=== PATIENT | female | born 1935 | race Caucasian/White ===

== ENCOUNTER 2019-07-25 09:00 | Observation (INO) | payer MEDICARE, OTHER ==
[~2019-07-25] VITALS: Ht 165 cm; Wt 86.0 kg
[2019-07-25] MEDS ORDERED: NS IV 500 ML 500 ML IV ONE (09:25)
[2019-07-25 09:37] LABS: BASOPHILS % (AUTO) 0 % (0-10); EOSINOPHILS # (AUTO) 0.1 10^3/uL (0.0-0.3); EOSINOPHILS % (AUTO) 1 % (0-10); HEMATOCRIT 40 % (35-52); HEMOGLOBIN 12.9 G/DL (11.5-16.0); LYMPHOCYTES # (AUTO) 4.3 X 10^3 (1.0-4.0); LYMPHOCYTES % (AUTO) 42 % (12-44); MEAN CORPUSCULAR HEMOGLOBIN 30 PG (25-34); MEAN CORPUSCULAR HGB CONC 32 G/DL (32-36); MEAN CORPUSCULAR VOLUME 95 FL (80-99); MEAN PLATELET VOLUME 9.6 FL (7.4-10.4); MONOCYTES # (AUTO) 0.7 X 10^3 (0.0-1.0); MONOCYTES % (AUTO) 7 % (0-12); NEUTROPHILS # (AUTO) 5.1 X 10^3 (1.8-7.8); NEUTROPHILS % (AUTO) 50 % (42-75); PLATELET COUNT 331 10^3/uL (130-400); RED CELL DISTRIBUTION WIDTH 14.1 % (10.0-14.5); WHITE BLOOD COUNT 10.2 10^3/uL (4.3-11.0)
[2019-07-25 09:42] LABS: PROTHROMBIN TIME PATIENT 13.6 SEC (12.2-14.7)
[2019-07-25 09:47] LABS: ALBUMIN 4.1 GM/DL (3.2-4.5); BILIRUBIN,TOTAL 0.5 MG/DL (0.1-1.0); CALCIUM 10.1 MG/DL (8.5-10.1); CREATININE SERUM 1.51 MG/DL (0.60-1.30); POTASSIUM 4.8 MMOL/L (3.6-5.0); TOTAL PROTEIN 7.9 GM/DL (6.4-8.2)
--- NOTE | 2019-07-25 10:10 | ED General ---
General Chief Complaint: Abdominal/GI Problems Stated Complaint: AMS;V/D Source of Information: Patient, EMS History of Present Illness Date Seen by Provider: Jul 25, 2019 Time Seen by Provider: 09:25 Initial Comments Here with report of altered mental status. Apparently she has been constipated recently. She had gone down to the dining room for breakfast and was feeling bad and barely made it back to her room. She got on the toilet and had a large BM. Apparently during this episode she became confused and had altered mental status. Not only did she have diarrhea but she was vomiting. EMS was summoned. She improved for them with a negative stroke screen that continues now. States that she feels that her but has had the diarrhea. Denies breathing problems or chest pain. Timing/Duration: 1 Hour (presenting symptoms), 2-3 Days (constipation) Severity: Moderate Associated Systoms: No Chest Pain, No Cough; Fever/Chills, Nausea/Vomiting; No Shortness of Air; Weakness Allergies and Home Medications Allergies Coded Allergies: Penicillins (Verified Allergy, Unknown, 07/25/19) Patient Home Medication List Home Medication List Reviewed: Yes Review of Systems Review of Systems Constitutional: see HPI, chills; No fever; weakness EENTM: no symptoms reported Respiratory: see HPI Cardiovascular: No edema; other (near syncope) Gastrointestinal: abdominal pain, constipation, diarrhea, nausea, vomiting Genitourinary: No dysuria, No pain Musculoskeletal: no symptoms reported Skin: no symptoms reported Psychiatric/Neurological: Anxiety, Other (nearly passing out.) All Other Systems Reviewed Negative Unless Noted: Yes Past Ibwazxz-Eaonkb-Onzqbh Hx Past Med/Social Hx: Reviewed Nursing Past Med/Soc Hx Patient Social History Alcohol Use: Denies Use Recreational Drug Use: No Past Medical History Surgeries: Yes Appendectomy, Gallbladder, Hysterectomy Respiratory: No Cardiac: Yes Atrial Fibrillation, High Cholesterol, Hypertension 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 oz. kg; BMI Method: General Appearance: No Apparent Distress, WD/WN HEENT: PERRL/EOMI, Pharynx Normal Neck: Non Tender, Supple Respiratory: Lungs Clear, Normal Breath Sounds Cardiovascular: No Murmur, Irregularly Irregular Gastrointestinal: Non Tender, Soft Back: Normal Inspection, No CVA Tenderness, No Vertebral Tenderness Extremity: Normal Range of Motion, Non Tender Neurologic/Psychiatric: Alert, Oriented x3 Skin: normal color, warm/dry Focused Exam Lactate Level 07/25/19 09:09: Lactic Acid Level 2.08*H Lactic Acid Level Laboratory Tests Test 07/25/19 09:09 Lactic Acid Level 2.08 MMOL/L (0.50-2.00) *H Progress/Results/Core Measures Suspected Sepsis SIRS Temperature: Pulse: Respiratory Rate: Laboratory Tests 07/25/19 09:09: White Blood Count 10.2 Blood Pressure / Mean: 07/25/19 09:09: Lactic Acid Level 2.08*H Laboratory Tests 07/25/19 09:09: Creatinine 1.51H, INR Comment 1.0, Platelet Count 331, Total Bilirubin 0.5 Results/Orders Lab Results Laboratory Tests Test 07/25/19 09:09 07/25/19 10:19 Range/Units White Blood Count 10.2 4.3-11.0 10^3/uL Red Blood Count 4.24 L 4.35-5.85 10^6/uL Hemoglobin 12.9 11.5-16.0 G/DL Hematocrit 40 35-52 % Mean Corpuscular Volume 95 80-99 FL Mean Corpuscular Hemoglobin 30 25-34 PG Mean Corpuscular Hemoglobin Concent 32 32-36 G/DL Red Cell Distribution Width 14.1 10.0-14.5 % Platelet Count 331 130-400 10^3/uL Mean Platelet Volume 9.6 7.4-10.4 FL Neutrophils (%) (Auto) 50 42-75 % Lymphocytes (%) (Auto) 42 12-44 % Monocytes (%) (Auto) 7 0-12 % Eosinophils (%) (Auto) 1 0-10 % Basophils (%) (Auto) 0 0-10 % Neutrophils # (Auto) 5.1 1.8-7.8 X 10^3 Lymphocytes # (Auto) 4.3 H 1.0-4.0 X 10^3 Monocytes # (Auto) 0.7 0.0-1.0 X 10^3 Eosinophils # (Auto) 0.1 0.0-0.3 10^3/uL Basophils # (Auto) 0.0 0.0-0.1 10^3/uL Prothrombin Time 13.6 12.2-14.7 SEC INR Comment 1.0 0.8-1.4 Activated Partial Thromboplast Time 28 24-35 SEC Sodium Level 140 135-145 MMOL/L Potassium Level 4.8 3.6-5.0 MMOL/L Chloride Level 102 98-107 MMOL/L Carbon Dioxide Level 24 21-32 MMOL/L Anion Gap 14 5-14 MMOL/L Blood Urea Nitrogen 33 H 7-18 MG/DL Creatinine 1.51 H 0.60-1.30 MG/DL Estimat Glomerular Filtration Rate 33 BUN/Creatinine Ratio 22 Glucose Level 133 H 70-105 MG/DL Lactic Acid Level 2.08 *H 0.50-2.00 MMOL/L Calcium Level 10.1 8.5-10.1 MG/DL Corrected Calcium 10.0 8.5-10.1 MG/DL Total Bilirubin 0.5 0.1-1.0 MG/DL Aspartate Amino Transf (AST/SGOT) 15 5-34 U/L Alanine Aminotransferase (ALT/SGPT) 7 0-55 U/L Alkaline Phosphatase 84 40-136 U/L Total Protein 7.9 6.4-8.2 GM/DL Albumin 4.1 3.2-4.5 GM/DL Urine Color YELLOW Urine Clarity CLEAR Urine pH 6 5-9 Urine Specific [place] 1.015 L 1.016-1.022 Urine Protein 2+ H NEGATIVE Urine Glucose (UA) NEGATIVE NEGATIVE Urine Ketones NEGATIVE NEGATIVE Urine Nitrite POSITIVE H NEGATIVE Urine Bilirubin NEGATIVE NEGATIVE Urine Urobilinogen NORMAL NORMAL MG/DL Urine Leukocyte Esterase 1+ H NEGATIVE Urine RBC (Auto) NEGATIVE NEGATIVE Urine RBC NONE /HPF Urine WBC 10-25 H /HPF Urine Squamous Epithelial Cells 5-10 /HPF Urine Crystals NONE /LPF Urine Bacteria MODERATE H /HPF Urine Casts PRESENT /LPF Urine Hyaline Casts 25-50 H /LPF Urine Mucus NEGATIVE /LPF Urine Culture Indicated CULTURE PENDING My Orders Orders - RHONDA TRAYLOR MD Ns Iv 500 Ml (Sodium Chloride 0.9%) (07/25/19 09:25) Cbc With Automated Diff (07/25/19 09:25) Comprehensive Metabolic Panel (07/25/19 09:25) Blood Culture (07/25/19:25) Sputum Culture (07/25/19:25) Urinalysis (07/25/19:25) Urine Culture (07/25/19:25) Protime With Inr (07/25/19:25) Partial Thromboplastin Time (07/25/19:25) Chest 1 View, Ap/Pa Only (07/25/19:25) Ed Iv/Invasive Line Start (07/25/19:25) Vital Signs Adult Sepsis Patie Q15M (07/25/19 09:25) O2 (07/25/19:) Remove Rings In Anticipation O (07/25/19:) Lactic Acid Analyzer (07/25/19:) Ceftriaxone For Iv Use (Rocephin For I (07/25/19 11:00) Medications Given in ED Current Medications Medications Dose Ordered Sig/Bishnu Route Start Time Stop Time Status Last Admin Dose Admin Ceftriaxone Sodium 1000 mg/ Sterile Water 10 ml @ 200 mls/hr ONCE ONCE IV 07/25/19 11:00 07/25/19 11:02 DC 07/25/19 11:07 200 MLS/HR Sodium Chloride 500 ml @ 0 mls/hr Q0M ONCE IV 07/25/19 09:25 07/25/19 09:28 DC 07/25/19 09:53 500 MLS/HR Vital Signs/I&O 07/25/19 09:00 Temp 36.7 Pulse 56 Resp 18 B/P (MAP) 113/55 (74) Pulse Ox 97 Capillary Refill : Progress Note : Progress Note Seen and evaluated. IV, labs, UA, chest x-ray, blood cultures and lactic acid ordered. Normal saline 500 mL bolus. Monitor patient. 1010: Power catheter p laced due to difficulty with getting up and the need to collect UA. Monitor patient. 1132: UTI noted. Rocephin 1 g IV ordered. Patient will need admission. Paged hospitalist, Dr. Cisneros and pending call back. I have discussed the case with Dr. Torres who will see the patient in consult due to patient's history of A. fib and is on flecainide. She is currently in atrial fibrillation. 1140: I have discussed the case with Dr. Cisneros and he accepts patient for admission, inpatient status. Patient and family agree with plan. Patient does have a urinary tract infection but is not hypotensive and does not have indications for high volume fluid resuscitation at this time. ECG Initial ECG Impression Date: Jul 25, 2019 Initial ECG Impression Time: 09:14 Initial ECG Rate: 57 Initial ECG Rhythm: A Fib/Flutter Initial ECG Impression: Atrial Fibrillation Initial ECG Comparisson: No Previous ECG Available Comment Atrial fibrillation with no right. No evidence of ST elevation SD. No previous available for person. Interpreted by me. Diagnostic Imaging Diagonstic Imaging: Xray Plain Films/CT/US/NM/MRI: chest Comments NAME: TATE STEPHEN REC#: [id number] PT STATUS: REG ER : 1935 PHYSICIAN: RHONDA TRAYLOR MD ADMIT DATE: 07/25/19/ER Draft Date of Exam:07/25/19 CHEST 1 VIEW, AP/PA ONLY INDICATION: Chest pain. No prior examinations are Available for comparison. FINDINGS: There is cardiomegaly. There is some venous congestion. There is bibasilar atelectasis and/or pneumonitis. There is no pleural effusion or pneumothorax. The mediastinum is unremarkable. IMPRESSION: Bibasilar atelectasis and/or pneumonitis. Cardiomegaly and mild central pulmonary venous congestion. Dictated on workstation # [id number] Dict: 07/25/19 1014 Trans: 07/25/19 1018 [facility] [id number] Interpreted by: GABRIEL ASENCIO MD Electronically signed by: Departure Impression Primary Impression: Urinary tract infection Qualified Codes: N30.00 - Acute cystitis without hematuria Disposition: ADMITTED INPATIENT Condition: Stable Admissions Decision to Admit Reason: Admit from ER (General) Decision to Admit/Date: Jul 25, 2019 Time/Decision to Admit Time: 11:29 RHONDA TRAYLOR MD Jul 25, 2019 10:10
--- NOTE | 2019-07-25 10:18 | Diagnostic Imaging Report ---
INDICATION: Chest pain. No prior examinations are Available for comparison. FINDINGS: There is cardiomegaly. There is some venous congestion. There is bibasilar atelectasis and/or pneumonitis. There is no pleural effusion or pneumothorax. The mediastinum is unremarkable. IMPRESSION: Bibasilar atelectasis and/or pneumonitis. Cardiomegaly and mild central pulmonary venous congestion. Dictated by: Dictated on workstation # [id number]
[2019-07-25 10:23] LABS: BILIRUBIN,URINE NEGATIVE (NEGATIVE); CLARITY,URINE CLEAR; COLOR,URINE YELLOW; GLUCOSE, URINE (UA) NEGATIVE (NEGATIVE); KETONES,URINE NEGATIVE (NEGATIVE); LEUKOCYTE ESTERASE ,URINE 1+ (NEGATIVE); NITRITE,URINE POSITIVE (NEGATIVE); PH,URINE 6 (5-9); PROTEIN,URINE 2+ (NEGATIVE); UROBILINOGEN,URINE NORMAL (NORMAL)
[2019-07-25 10:34] LABS: BACTERIA,URINE MODERATE /HPF; HYALINE CASTS, URINE 25-50 /LPF
[2019-07-25] MEDS ORDERED: cefTRIAXone FOR IV USE 1,000 MG in WATER (STERILE) FOR INJECTION 10 ML IV ONE (11:00)
[2019-07-25] MEDS ORDERED: QUIN20TA16 PO (13:39)
[2019-07-25] MEDS ORDERED: AMLO10TA7 PO (13:39)
[2019-07-25] MEDS ORDERED: FURO20TA4 PO (13:39)
[2019-07-25] MEDS ORDERED: LEVO125T6 PO (13:39)
[2019-07-25] MEDS ORDERED: CALC250T2 PO (13:39)
[2019-07-25] MEDS ORDERED: OMG1KC PO (13:39)
[2019-07-25] MEDS ORDERED: LORA10TA7 PO (13:39)
[2019-07-25] MEDS ORDERED: SPIR25TA PO (13:39)
[2019-07-25] MEDS ORDERED: ASCO-262 PO (13:39)
[2019-07-25] MEDS ORDERED: [UNRECOGNIZED DRUG - CODE] TP (13:39)
[2019-07-25] MEDS ORDERED: CITA20TA9 PO (13:39)
[2019-07-25] MEDS ORDERED: CHOL10007 PO (13:39)
[2019-07-25] MEDS ORDERED: GEMF600T8 PO (13:39)
[2019-07-25] MEDS ORDERED: POTA99TA21 PO (13:39)
[2019-07-25] MEDS ORDERED: ACET-2650 PO (13:39)
[2019-07-25] MEDS ORDERED: FLEC100T PO (13:39)
[2019-07-25] MEDS ORDERED: CATHETER FLUSH 10 ML SYR IV PRN (13:45)
[2019-07-25] MEDS ORDERED: NS IV 1000 ML 1,000 ML IV SCH (13:45)
--- NOTE | 2019-07-25 13:48 | NUR ---
UPDATED MED REC WITH MAR FROM [facility]
--- NOTE | 2019-07-25 14:00 | NUR ---
PT ADMITTED TO ROOM 404 FOR UTI, SEPSIS. A/O X4. IV TO LEFT AC INTACT. HOLLIS DRAINING TO DEPENDENT DRAINAGE. PT ABLE TO GIVE SOME HISTORY BUT MOSTLY WITH THE HELP OF HER SON, BRENDA. PT REPORTS USING WALK[facility] [place], [place]. OREINTED PT TO ROOM/CALL LIGHT. LUNCH ORDERED. PT DENIES ANY NAUSEA/VOM. CALL LIGHT WITHIN REACH. PT FALL RISK. VERBALIZED UNDERSTANDING OF USE OF CALL LIGHT IF NEEDING TO GET UP.
[2019-07-25 15:30] VITALS: BP 164/74
[2019-07-25 15:47] VITALS: BP 139/68
[2019-07-25 19:37] VITALS: BP 135/55
[2019-07-25] MEDS ORDERED: ONDANSETRON 4 MG (ZOFRAN) ORAL DISSOLVE TAB PO PRN (20:30)
[2019-07-25] MEDS ORDERED: POLYETHYLENE GLYCOL 17 GM (MIRALAX) PACK PO PRN (20:30)
[2019-07-25] MEDS ORDERED: MELATONIN 3 MG TABLET PO PRN (20:30)
[2019-07-25] MEDS ORDERED: ACETAMINOPHEN 325 MG TABLET PO PRN (20:30)
[2019-07-25] MEDS: SENNA W/DOCUSATE (SENOKOT S) TABLET PO SCH (21:11)
[2019-07-25] MEDS: DOCUSATE SODIUM 100 MG (COLACE) CAP PO SCH (21:11)
[2019-07-26] VITALS: BP 127/61
[2019-07-26 04:00] VITALS: BP 118/61
[2019-07-26 06:14] LABS: BASOPHILS % (AUTO) 0 % (0-10); EOSINOPHILS # (AUTO) 0.1 10^3/uL (0.0-0.3); EOSINOPHILS % (AUTO) 2 % (0-10); HEMATOCRIT 39 % (35-52); LYMPHOCYTES # (AUTO) 1.5 X 10^3 (1.0-4.0); LYMPHOCYTES % (AUTO) 24 % (12-44); MEAN CORPUSCULAR HEMOGLOBIN 29 PG (25-34); MEAN CORPUSCULAR HGB CONC 31 G/DL (32-36); MEAN CORPUSCULAR VOLUME 96 FL (80-99); MEAN PLATELET VOLUME 9.5 FL (7.4-10.4); MONOCYTES # (AUTO) 0.6 X 10^3 (0.0-1.0); MONOCYTES % (AUTO) 9 % (0-12); NEUTROPHILS # (AUTO) 4.1 X 10^3 (1.8-7.8); NEUTROPHILS % (AUTO) 65 % (42-75); PLATELET COUNT 269 10^3/uL (130-400); RED CELL DISTRIBUTION WIDTH 14.3 % (10.0-14.5); WHITE BLOOD COUNT 6.3 10^3/uL (4.3-11.0)
[2019-07-26 06:37] LABS: ALBUMIN 3.4 GM/DL (3.2-4.5); BILIRUBIN,TOTAL 0.4 MG/DL (0.1-1.0); CALCIUM 9.1 MG/DL (8.5-10.1); CREATININE SERUM 0.95 MG/DL (0.60-1.30); POTASSIUM 4.7 MMOL/L (3.6-5.0); TOTAL PROTEIN 6.4 GM/DL (6.4-8.2)
[2019-07-26] MEDS ORDERED: LORATADINE (CLARITIN) 10 MG TAB PO PRN (07:30)
[2019-07-26 08:00] VITALS: BP 136/53
[2019-07-26] MEDS: SPIRONOLACTONE 25 MG (ALDACTONE) TAB PO SCH (08:40)
[2019-07-26] MEDS: FLECAINIDE 100 MG (TAMBOCOR) TAB PO SCH ×2 (08:40→22:25)
[2019-07-26] MEDS: amLODIPine 10 MG (NORVASC) TAB PO SCH (08:40)
[2019-07-26] MEDS: FUROSEMIDE 20 MG (LASIX) TAB PO SCH (08:40)
[2019-07-26] MEDS: LEVOTHYROXINE 125 MCG (LEVOTHROID) TABLET PO SCH (08:40)
[2019-07-26] MEDS: DOCUSATE SODIUM 100 MG (COLACE) CAP PO SCH ×2 (08:41→22:26)
[2019-07-26] MEDS: SENNA W/DOCUSATE (SENOKOT S) TABLET PO SCH ×2 (09:00→22:25)
[2019-07-26] MEDS: lisINopril 20 MG (PRINIVIL) TABLET PO SCH ×2 (10:41→22:26)
--- NOTE | 2019-07-26 10:45 | Physical Therapy Evaluation ---
PT Evaluation-General Medical Diagnosis Admission Date Jul 25, 2019 at 13:14 Medical Diagnosis: UTI/sepsis Onset Date: Jul 25, 2019 Therapy Diagnosis Therapy Diagnosis: debility Height/Weight Weight (Pounds): 179 Weight (Ounces): 0.6 Precautions Precautions/Isolations: Fall Prevention, Standard Precautions, Pressure Ulcer Referral Physician: Amelia Reason for Referral: Evaluation/Treatment Medical History Pertinent Medical History: Atrial Fib, HTN, Hypothroidism Current History EMS secondary to AMS Reviewed History: Yes Social History Home: Assisted Living Prior/Core FIM Prior Level of Function Therapy Code Descriptions/Definitions Functional [place] Measure: 0=Not Assessed/NA 4=Minimal Assistance 1=Total Assistance 5=Supervision or Setup 2=Maximal Assistance 6=Modified [place] 3=Moderate Assistance 7=Complete [place] Therapy Quality Codes: 6 Independent with activity with or without an assistive device 5 Patient requires set up or clean up by helper. Patient completes activity by themselves 4 Supervision or touching assist (CGA). [place] provide cues , steadying assist 3 The helper provides less than half the effort to complete the activity 2 The helper provides more than half the effort to complete the activity 1 Dependent. The helper does all the effort to complete an activity 7 Patient refused to complete or attempt activity 9 The patient did not perform the activity before the current illness or injury 88 Not attempted due to Medical conditions or safety concerns Functional Abilities and Goals: Independent: Patient completed the activities by him/herself, with or without an assistive device, with no assistance from a helper. Needed Some Help: Patient needed partial assistance from another person to complete activities. Dependent: A helper completed the activities for the patient. Unknown: Not Applicable: Bed Mobility: 6 Transfers (B,C,W/C) (FIM): 6 Gait: 6 Indoor Mobility (Ambulation): Independent Prior Devices Use: Walker Prior Device Use: 4WW PT Evaluation-Current Subjective Patient agrees to PT. No c/o Objective Patient Orientation: Person, Time, Situation Problem Solving: Fair Attachments: Power Catheter, IV ROM/Strength ROM Lower Extremities bilateral Le WFL Strength Lower Extremities 4/5 grossly bilateral LE Integumentary/Posture Integumentary refer to nursing notes Bladder Incontinence: Power Cath Posture WFL Neuromuscular (Tone, Coordination, Reflexes) grossly intact Sensory Vision: Wears Glasses Hearing: Functional Sensation Right Lower Extremit: Intact Sensation Left Lower Extremity: Intact Transfers Therapy Code Descriptions/Definitions Functional [place] Measure: 0=Not Assessed/NA 4=Minimal Assistance 1=Total Assistance 5=Supervision or Setup 2=Maximal Assistance 6=Modified [place] 3=Moderate Assistance 7=Complete [place] Transfers (B, C, W/C) (FIM): 6 Scootin Sit to/from Stand: 6 Gait Mode of Locomotion: Walk Anticipated Mode of Locomotion: Walk Gait (FIM): 5 Distance (FIM): 3=150 ft Distance: 275' Gait Level of Assist: 5 Gait Assistive Device: FWW Comments/Gait Description steady, functional gait sequence Balance Sitting Static: Normal Sitting Dynamic: Normal Standing Static: Normal Standing Dynamic: Normal Assessment/Needs 83 y.o. female, will be seen short term by skilled PT to address functional mobility to ensure safe return to [place]. Rehab Potential: Fair PT Alf Goals Alf Goals PT Alf Goals Time Frame: Aug 03, 2019 Transfers (B,C,W/C) (FIM): 6 Gait (FIM): 6 Gait distance (FIM): 3=150 ft Gait Level of Assist: 6 Gait Assistive Device: FWW PT Plan Treatment/Plan Treatment Plan: Continue Plan of Care Treatment Plan: Bed Mobility, Education, Functional Activity Mis, Functional Strength, Gait, Safety, Therapeutic Exercise, Transfers Treatment Duration: Aug 03, 2019 Frequency: 6 times per week Estimated Hrs Per Day: .25 hour per day Patient and/or Family Agrees t: Yes Discharge Recommendations Therapy Discharge Recommendati: Assisted Living Time/GCodes Time In: 1015 Time Out: 1035 Total Billed Treatment Time: 20 Total Billed Treatment 1 visit EVModC 20 min MAXIMILIAN OKEEFE PT Jul 26, 2019 10:45
[2019-07-26] MEDS ORDERED: cefTRIAXone 1,000 MG/SWFI 10 ML IV PUSH IV SCH ×2 (11:00)
[2019-07-26 12:00] VITALS: BP 131/58
--- NOTE | 2019-07-26 13:10 | History & Physical-Hospitalist ---
History of Present Illness HPI/Chief Complaint Vicky Dempsey is an 83-year-old female with past medical history of hypertension, hyperlipidemia, atrial fibrillation, who presented from her assisted living facility with altered mental status. She had been eating breakfast yesterday and began to have abdominal pain and felt like she needed of a bowel movement. She went back to her room and she had an episode of diarrhea. She then lost consciousness and does not remember a period of time. She also reports nausea and vomiting. She denies having any fevers or chills. She denies having any chest pain or shortness of breath. Source: patient Exam Limitations: no limitations Date Seen 07/26/19 Time Seen by a Provider: 10:15 Attending Physician Griselda Barcenas MD PCP No,Local Physician Referring Physician Date of Admission Jul 25, 2019 at 13:14 Home Medications & Allergies Home Medications Reviewed patient Home Medication Reconciliation performed by pharmacy medication reconciliations concrete technician and/or nursing. Patients Allergies have been reviewed. Allergies Allergies Coded Allergies Penicillins (Verified Allergy, Unknown, 07/25/19) sulfamethoxazole (Verified Allergy, Unknown, 07/25/19) trimethoprim (Verified Allergy, Unknown, 07/25/19) Past Xourayu-Rbzthz-Vwwxjc Hx Past Med/Social Hx: Reviewed Nursing Past Med/Soc Hx Patient Social History Alcohol Use: Denies Use Recreational Drug Use: No Smoking Status: Never a Smoker Physical Abuse Screen: No Sexual Abuse: No Recent Foreign Travel: No Contact w/other who traveled: No Recent Hopitalizations: Yes (HANK DERAS DR) Recent Infectious Disease Expo: No Seasonal Allergies Seasonal Allergies: No Past Medical History Surgeries: Appendectomy, Gallbladder, Hysterectomy Cardiac: Atrial Fibrillation, High Cholesterol, Hypertension Hysterectomy Genitourinary: UTI-Chronic Gastrointestinal: Chronic Constipation Endocrine: Hypothyroidsim HEENT: Macular Degeneration Loss of Vision: Bilateral Hearing Impairment: Denies Psychosocial: Anxiety Family History Reviewed Nursing Family Hx No Pertinent Family Hx Review of Systems Constitutional: no symptoms reported EENTM: no symptoms reported Respiratory: no symptoms reported Cardiovascular: no symptoms reported Gastrointestinal: abdominal pain, diarrhea, nausea, vomiting Genitourinary: no symptoms reported Musculoskeletal: no symptoms reported Skin: no symptoms reported Psychiatric/Neurological: No Symptoms Reported Physical Exam Physical Exam Vital Signs Vital Signs - First Documented 07/25/19 07/25/19 09:00 14:57 Temp 36.7 Pulse 56 Resp 18 B/P (MAP) 113/55 (74) Pulse Ox 97 O2 Delivery Room Air Capillary Refill : Less Than 3 Seconds Height, Weight, BMI Height: '" Weight: 179lbs. 0.6oz. 81.500775vg; 31.58 BMI Method: General Appearance: No Apparent Distress, WD/WN, Obese HEENT: PERRL/EOMI, Pharynx Normal Neck: Normal Inspection, Supple Respiratory: Lungs Clear, Normal Breath Sounds, No Respiratory Distress Cardiovascular: Irregularly Irregular Gastrointestinal: Normal Bowel Sounds, Non Tender, Soft Extremity: Normal Inspection, Non Tender Neurologic/Psychiatric: Alert, Oriented x3 Skin: Normal Color, Warm/Dry Results Results/Procedures Labs Laboratory Tests 07/25/19 09:09 07/26/19 05:28 Patient resulted labs reviewed. Imaging: Reviewed Imaging Report Assessment/Plan Admission Diagnosis Urinary tract infection Admission Status: Inpatient Order (span 2 midnights) Reason for Inpatient Admission: Acute kidney injury Lactic acidosis Assessment and Plan Urinary tract infection UA consistent with UTI Urine culture pending Started on ceftriaxone Await culture results Obtain renal ultrasound Lactic acidosis Lactic acid elevated on admission, resolved with fluid resuscitation Acute kidney injury Creatinine 1.5 on admission, improved to 0.9 today Tolerating oral fluids, discontinue IV fluids Atrial fibrillation Continue flecainide Not on anticoagulation Hypertension Hyperlipidemia Stable, continue home meds Diagnosis/Problems Diagnosis/Problems (1) Acute kidney injury Status: Resolved Resolution Date/Time: 07/26/19 @ 13:13 (2) Lactic acidosis Status: Resolved Resolution Date/Time: 07/26/19 @ 13:13 (3) Atrial fibrillation Status: Chronic (4) Hypertension Status: Chronic (5) Hyperlipidemia Status: Chronic (6) Urinary tract infection Status: Acute Qualifiers: Urinary tract infection type: acute cystitis Hematuria presence: without hematuria Qualified Codes: N30.00 - Acute cystitis without hematuria Clinical Quality Measures DVT/VTE Risk/Contraindication: Risk Factor Score Per Nursin RFS Level Per Nursing on Admit: 4+=Very High GRISELDA BARCENAS MD Jul 26, 2019 13:09
--- NOTE | 2019-07-26 13:38 | Occupational Therapy Eval ---
OT Evaluation-General/PLF Medical Diagnosis Admission Date Jul 25, 2019 at 13:14 Medical Diagnosis: UTI/sepsis Onset Date: Jul 25, 2019 Therapy Diagnosis Therapy Diagnosis: debility Height/Weight Weight (Pounds): 179 Weight (Ounces): 0.6 Precautions Precautions/Isolations: Fall Prevention, Standard Precautions, Pressure Ulcer Safety Interventions: Bed Exit Alarm Referral Physician: Amelia Medical History Pertinent Medical History: Atrial Fib, HTN, Hypothroidism Additional Medical History high cholesterol Current History Pt presented to hospital with AMS Social History Home: Assisted Living ADL-Prior Level of Function Therapy Code Descriptions/Definitions Functional [place] Measure: 0=Not Assessed/NA 4=Minimal Assistance 1=Total Assistance 5=Supervision or Setup 2=Maximal Assistance 6=Modified [place] 3=Moderate Assistance 7=Complete [place] Therapy Quality Codes: 6 Independent with activity with or without an assistive device 5 Patient requires set up or clean up by helper. Patient completes activity by themselves 4 Supervision or touching assist (CGA). [place] provide cues , steadying assist 3 The helper provides less than half the effort to complete the activity 2 The helper provides more than half the effort to complete the activity 1 Dependent. The helper does all the effort to complete an activity 7 Patient refused to complete or attempt activity 9 The patient did not perform the activity before the current illness or injury 88 Not attempted due to Medical conditions or safety concerns Functional Abilities and Goals: Independent: Patient completed the activities by him/herself, with or without an assistive device, with no assistance from a helper. Needed Some Help: Patient needed partial assistance from another person to complete activities. Dependent: A helper completed the activities for the patient. Unknown: Not Applicable: ADL PLOF Comments Pt reports ambulating with 4WW. States she is able to dress herself and complete toileting, but has assist for bathing. OT Current Status Subjective Pt sitting in chair, agrees to therapy. Mental Status/Objective Patient Orientation: Person Attachments: Power Catheter Current Glasses/Contacts: No (pt states she is legally blind) Hearing Aids: No Hand Dominance: Right Upper Extremity ROM grossly WFL Upper Extremity Strength Fair ADL-Treatment ADL-Current Pt participated in UE assessment while seated. Pt sit to stand with SBA, demonstrates ability to perform transfer with SBA with FWW. Pt moves slowly and requires cues for safety. Pt washed face with set up while seated in chair. Education provided regarding role of OT and plan of care. Pt states understanding. Pt sitting in chair with needs met and sister present after session. Therapy Code Descriptions/Definitions Functional [place] Measure: 0=Not Assessed/NA 4=Minimal Assistance 1=Total Assistance 5=Supervision or Setup 2=Maximal Assistance 6=Modified [place] 3=Moderate Assistance 7=Complete [place] Therapy Quality Codes: 6 Independent with activity with or without an assistive device 5 Patient requires set up or clean up by helper. Patient completes activity by themselves 4 Supervision or touching assist (CGA). [place] provide cues , steadying assist 3 The helper provides less than half the effort to complete the activity 2 The helper provides more than half the effort to complete the activity 1 Dependent. The helper does all the effort to complete an activity 7 Patient refused to complete or attempt activity 9 The patient did not perform the activity before the current illness or injury 88 Not attempted due to Medical conditions or safety concerns Grooming (FIM): 5 Education OT Patient Education: Rehab process Teaching Recipient: Patient Teaching Methods: Discussion Response to Teaching: Verbalize Understanding OT Short Term Goals Short Term Goals 1=Demonstrate adherence to instructed precautions during ADL tasks. 2=Patient will verbalize/demonstrate understanding of assistive devices/modifications for ADL. 3=Patient will improve strength/tolerance for activity to enable patient to perform ADL's. OT Fdc Goals Fdc Goals Time Frame: Aug 03, 2019 Eating (FIM): 6 Grooming(FIM): 6 Upper Body Dressing(FIM): 5 Lower Body Dressing(FIM): 5 Toileting(FIM): 5 Toilet/Commode Transfer(FIM): 6 Additional Goals: 1-Demonstrate ADL Tasks, 2-Verbalize Understanding, 3- ImproveStrength/Mis 1=Demonstrate adherence to instructed precautions during ADL tasks. 2=Patient will verbalize/demonstrate understanding of assistive devices /modifications for ADL. 3=Patient will improve strength/tolerance for activity to enable patient to perform ADL's. OT Education/Plan Problem List/Assessment Assessment: Decreased Activ Tolerance, Decreased UE Strength, Dependent Transfers, Impaired Self-Care Skills Pt to benefit from skilled OT intervention for ADL training, transfers, strengthening, and safety education to increase level of independence and allow safe discharge. Discharge Recommendations Plan/Recommendations: Continue POC Treatment Plan/Plan of Care Treatment,Training & Education: Yes Patient would benefit from OT for education, treatment and training to promote independence in ADL's, mobility, safety and/or upper extremity function for ADL's. Plan of Care: ADL Retraining, Functional Mobility, UE Funct Exercise/Act Treatment Duration: Aug 03, 2019 Frequency: 5 times per week Estimated Hrs Per Day: .25 hour per day Rehab Potential: Fair Time/GCodes Start Time: 13:10 Stop Time: 13:30 Total Time Billed (hr/min): 20 Billed Treatment Time 1 visit, JESSICA(20minutes) CAS MOTLEY OT Jul 26, 2019 13:38
--- NOTE | 2019-07-26 14:07 | Consultation-Cardiology ---
HPI-Cardiology Cardiology Consultation Date of Consultation 07/26/19 Date of Admission Time Seen by Provider: 14:03 Indication: atrial fibrillation HPI 83 years old lady with history of paroxysmal atrial flutter ablation, hypertension hyperlipidemia. Patient was admitted for urinary tract infection, lactic acidosis. Nausea and vomiting, currently feeling better, asking to go h ome, denied any chest pain, no palpitation. No syncope Home Medications & Allergies Allergies: Coded Allergies: Penicillins (Verified Allergy, Unknown, 07/25/19) sulfamethoxazole (Verified Allergy, Unknown, 07/25/19) trimethoprim (Verified Allergy, Unknown, 07/25/19) Home Medication List Reviewed: Yes [id number] Hx Patient Social History Alcohol Use: Denies Use Recreational Drug Use: No Smoking Status: Never a Smoker Recent Foreign Travel: No Recent Infectious Disease Expo: No Recent Hopitalizations: Yes (HANK DERAS DR) Physical Abuse Screen: No Sexual Abuse: No Past Medical History Discussed below Family Medical History Significant Family History: No Pertinent Family Hx Family Medical Hx Family history of heart disease Review of Systems-General Review of Systems Constitutional: see HPI, malaise, weakness EENTM: see HPI Respiratory: see HPI; No cough, No dyspnea on exertion, No hemoptysis, No orthopnea, No phlegm, No short of breath, No stridor, No wheezing, No other Cardiovascular: see HPI; No chest pain; edema; No Hx of Intervention; palpitations; No syncope, No vascular heart diseas, No other Gastrointestinal: see HPI, abdominal pain, diarrhea, nausea, vomiting Genitourinary: see HPI, frequency Musculoskeletal: no symptoms reported Skin: no symptoms reported Psychiatric/Neurological: No Symptoms Reported All Other Systems Reviewed Negative Unless Noted: Yes Reviewed Test Results Reviewed Test Results Lab Laboratory Tests Test 07/26/19 05:28 Range/Units White Blood Count 6.3 4.3-11.0 10^3/uL Red Blood Count 4.08 L 4.35-5.85 10^6/uL Hemoglobin 12.0 11.5-16.0 G/DL Hematocrit 39 35-52 % Mean Corpuscular Volume 96 80-99 FL Mean Corpuscular Hemoglobin 29 25-34 PG Mean Corpuscular Hemoglobin Concent 31 L 32-36 G/DL Red Cell Distribution Width 14.3 10.0-14.5 % Platelet Count 269 130-400 10^3/uL Mean Platelet Volume 9.5 7.4-10.4 FL Neutrophils (%) (Auto) 65 42-75 % Lymphocytes (%) (Auto) 24 12-44 % Monocytes (%) (Auto) 9 0-12 % Eosinophils (%) (Auto) 2 0-10 % Basophils (%) (Auto) 0 0-10 % Neutrophils # (Auto) 4.1 1.8-7.8 X 10^3 Lymphocytes # (Auto) 1.5 1.0-4.0 X 10^3 Monocytes # (Auto) 0.6 0.0-1.0 X 10^3 Eosinophils # (Auto) 0.1 0.0-0.3 10^3/uL Basophils # (Auto) 0.0 0.0-0.1 10^3/uL Sodium Level 141 135-145 MMOL/L Potassium Level 4.7 3.6-5.0 MMOL/L Chloride Level 109 H 98-107 MMOL/L Carbon Dioxide Level 24 21-32 MMOL/L Anion Gap 8 5-14 MMOL/L Blood Urea Nitrogen 22 H 7-18 MG/DL Creatinine 0.95 0.60-1.30 MG/DL Estimat Glomerular Filtration Rate 56 BUN/Creatinine Ratio 23 Glucose Level 82 70-105 MG/DL Calcium Level 9.1 8.5-10.1 MG/DL Corrected Calcium 9.6 8.5-10.1 MG/DL Total Bilirubin 0.4 0.1-1.0 MG/DL Aspartate Amino Transf (AST/SGOT) 11 5-34 U/L Alanine Aminotransferase (ALT/SGPT) 8 0-55 U/L Alkaline Phosphatase 85 40-136 U/L Total Protein 6.4 6.4-8.2 GM/DL Albumin 3.4 3.2-4.5 GM/DL Physical Exam Physical Exam Vital Signs Vital Signs - First Documented 07/25/19 07/25/19 09:00 14:57 Temp 36.7 Pulse 56 Resp 18 B/P (MAP) 113/55 (74) Pulse Ox 97 O2 Delivery Room Air Capillary Refill : Less Than 3 Seconds Height, Weight, BMI Height: '" Weight: 179lbs. 0.6oz. [id number]; 31.58 BMI Method: General Appearance: No Apparent Distress, WD/WN, Obese HEENT: PERRL/EOMI, Pharynx Normal Neck: Normal Inspection, Supple Respiratory: Lungs Clear, Normal Breath Sounds, No Respiratory Distress Cardiovascular: Regular Rate, Rhythm, No Gallop, No Murmur, Irregularly Irregular Gastrointestinal: Normal Bowel Sounds, Non Tender, Soft Back: Normal Inspection, No CVA Tenderness, No Vertebral Tenderness Extremity: Normal Inspection, Non Tender Neurologic/Psychiatric: Alert, Oriented x3 Skin: Normal Color, Warm/Dry A/P-Cardiology Admission Diagnosis Urinary tract infection Lactic acidosis Paroxysmal atrial fibrillation Hypertension Hyperlipidemia Assessment/Plan Urinary tract infection, lactic acidosis, managed by primary care team, receiving antibiotic and improving Paroxysmal atrial fibrillation, maintained on flecainide, not taking oral anticoagulation. Followed with a vault custodian in [place]. Continue to monitor Hypertension, controlled, continue current medications and monitor Hyperlipidemia, monitor lipids Clinical Quality Measures DVT/VTE Risk/Contraindication: Risk Factor Score Per Nursin RFS Level Per Nursing on Admit: 4+=Very High SCOT SHAH MD Jul 26, 2019 14:07
--- NOTE | 2019-07-26 15:20 | Diagnostic Imaging Report ---
PROCEDURE: US Renal Bilateral. TECHNIQUE: Multiple real-time grayscale images were obtained over the kidneys in various projections bilaterally. INDICATION: Urinary tract infections. FINDINGS: Right kidney measures 10.0 x 4.3 x 5.2 cm and the left kidney measures 10.0 x 4.9 x 4.0 cm. Cortical thickness is 9 mm. No calculi are seen. There is no hydronephrosis. Partially filled urinary bladder is unremarkable although ureteral jets were not visualized. IMPRESSION: Unremarkable renal ultrasound. Dictated by: Dictated on workstation # [id number]
[2019-07-26 16:00] VITALS: BP 121/66
[2019-07-26] MEDS ORDERED: GEMFIBROZIL 600 MG (LOPID) TAB PO SCH (16:00)
[2019-07-26 19:43] VITALS: BP 151/65
[2019-07-27 00:59] VITALS: BP 115/66
[2019-07-27 04:44] VITALS: BP 115/66
[2019-07-27 08:00] VITALS: BP 155/80
--- NOTE | 2019-07-27 09:03 | Cardiology Progress Note ---
Subjective Date Seen by Provider: Jul 27, 2019 Time Seen by Provider: 09:01 Subjective/Events-last exam Patient is feeling better, no new complaint, no chest pain Review of Systems General: No Chills, No Night Sweats, No Fatigue, No Malaise, No Appetite, No Other HEENT: No Head Aches, No Visual Changes, No Eye Pain, No Ear Pain, No Dysphasia, No Sinus Congestion, No Post Nasal Drip, No Sore Throat, No Other Pulmonary: No Dyspnea, No Cough, No Pleuritic Chest Pain, No Other Cardiovascular: No: Chest Pain, Palpitations, Orthopnea, Paroxysmal Noc. Dyspnea, Edema, Lt Headedness, Other Focused Exam Lactate Level 07/25/19 09:09: Lactic Acid Level 2.08*H 07/25/19 11:35: Lactic Acid Level 1.51 Objective-Cardiology Exam Last Set of Vital Signs Vital Signs 07/27/19 04:44 Temp 37.1 Pulse 56 Resp 18 B/P (MAP) 115/66 (82) Pulse Ox 98 O2 Delivery Room Air Capillary Refill : Less Than 3 Seconds I&O Intake and Output 07/27/19 00:00 Intake Total 790 ml Output Total 925 ml Balance -135 ml Intake Oral 790 ml Output Urine Total 925 ml General: Alert, Oriented X3, Cooperative HEENT: Atraumatic, PERRLA Neck: Supple, No JVD, No Thyromegaly Lungs: Clear to Auscultation, Normal Air Movement Heart: Regular Rate, Normal S1, Normal S2, No Murmurs Abdomen: Normal Bowel Sounds, Soft, No Tenderness, No Hepatosplenomegaly, No Masses Extremities: No Clubbing, No Cyanosis, No Edema, Normal Pulses, No T enderness/Swelling Skin: No Rashes, No Breakdown, No Significant Lesion Neuro: Normal Gait, Normal Speech, Strength at 5/5 X4 Ext, Normal Tone, Sensation Intact Psych/Mental Status: Mental Status NL, Mood NL A/P-Cardiology Admission Diagnosis Urinary tract infection Lactic acidosis Paroxysmal atrial fibrillation Hypertension Hyperlipidemia Assessment/Plan Urinary tract infection, lactic acidosis, feeling better, improving. Managed by primary care team Paroxysmal atrial fibrillation, maintained on flecainide, not taking oral anticoagulation. Followed with a digital intern in [place], requesting to transfer care. I will arrange for follow-up as an outpatient in my office Hypertension, controlled, continue current medications and monitor Hyperlipidemia, monitor lipids Clinical Quality Measures DVT/VTE Risk/Contraindication: Risk Factor Score Per Nursin RFS Level Per Nursing on Admit: 4+=Very High SCOT SHAH MD Jul 27, 2019 09:03
[2019-07-27] MEDS: LEVOTHYROXINE 125 MCG (LEVOTHROID) TABLET PO SCH (09:09)
[2019-07-27] MEDS: lisINopril 20 MG (PRINIVIL) TABLET PO SCH (09:09)
[2019-07-27] MEDS: FUROSEMIDE 20 MG (LASIX) TAB PO SCH (09:09)
[2019-07-27] MEDS: FLECAINIDE 100 MG (TAMBOCOR) TAB PO SCH (09:09)
[2019-07-27] MEDS: SPIRONOLACTONE 25 MG (ALDACTONE) TAB PO SCH (09:09)
[2019-07-27] MEDS: amLODIPine 10 MG (NORVASC) TAB PO SCH (09:09)
[2019-07-27] MEDS: DOCUSATE SODIUM 100 MG (COLACE) CAP PO SCH (09:09)
[2019-07-27] MEDS: SENNA W/DOCUSATE (SENOKOT S) TABLET PO SCH (09:09)
--- NOTE | 2019-07-27 10:32 | Discharge Summary ---
Discharge Summary Hospital Course Problems/Dx: (1) Acute kidney injury Status: Resolved (2) Lactic acidosis Status: Resolved (3) Atrial fibrillation Status: Chronic (4) Hypertension Status: Chronic (5) Hyperlipidemia Status: Chronic (6) Urinary tract infection Status: Acute Qualifiers: Qualified Codes: N30.00 - Acute cystitis without hematuria Hospital Course Date of Admission: Jul 25, 2019 at 13:14 Admission Diagnosis : Urinary tract infection Family Physician/Provider: Date of Discharge: 07/27/19 Discharge Diagnosis: Urinary tract infection Hospital Course: Vicky Dempsey is an 83yoF with PMH HTN, AFib, who presented with altered mental status and was found to have a urinary tract infection. She also initially had a lactic acidosis and acute kidney injury which quickly resolved with fluid resuscitation. Her UTI was found to be caused by E coli which was sensitive to Omnicef. She was prescribed a 7-day total course of antibiotics. She was discharged back to her assisted living facility. She will follow up with Dr. Shah as an outpatient for her chronic atrial fibrillation. Labs and Pending Lab Test: Microbiology 07/25/19 Blood Culture - Preliminary, Resulted No growth 07/25/19 Urine Culture - Final, Complete Escherichia coli Home Meds Active Reported Loratadine 10 Mg Tablet 10 Mg PO DAILY PRN Tylenol Arthritis (Acetaminophen) 650 Mg Tablet.er 650 Mg PO Q8H PRN Vitamin C (Ascorbate Calcium) 500 Mg Tablet 500 Mg PO HS Amlodipine Besylate 10 Mg Tablet 10 Mg PO HS Citalopram HBr (Citalopram Hydrobromide) 20 Mg Tablet 20 Mg PO HS Vitamin D3 (Cholecalciferol (Vitamin D3)) 1,000 Unit Capsule 1,000 Unit PO HS Fish Oil 1,000 mg Capsule ([place] 3 Polyunsat Fatty Acids) 1,000 Mg Cap 1,000 Mg PO HS Alclometasone Dipropionate 15 Gm Oint...g. TP BID 14 Days APPLY TO AFFECTED AREA 2X DAILY FOR 2 WEEKS START DATE: 07-19-19 END DATE 08-01-19 Calcium Citrate 250 Mg Tablet 500 Mg PO DAILY Aldactone (Spironolactone) 25 Mg Tablet 25 Mg PO DAILY Flecainide Acetate 100 Mg Tablet 100 Mg PO BID Gemfibrozil 600 Mg Tablet 600 Mg PO BID Potassium (Potassium Gluconate) 99 Mg Tablet 99 Mg PO DAILY Quinapril HCl 20 Mg Tablet 20 Mg PO BID Furosemide 20 Mg Tablet 20 Mg PO DAILY Levothyroxine Sodium 125 Mcg Tablet 125 Mcg PO DAILY Assessment/Pt Instructions Take medications as prescribed. Complete your antibiotics even if you are feeling better. Follow up with Dr. Shah, the enterprise applications manager. Discharge Planning: >30 minutes discharge planning Discharge Instructions Discharge Diet: No Restrictions Activity as Tolerated: Yes Consultations Cardiology Discharge Physical Examination Vital Signs Vital Signs Date Time Temp Pulse Resp B/P (MAP) Pulse Ox O2 Delivery O2 Flow Rate FiO2 07/27/19 08:00 37.2 58 20 155/80 (105) 97 Room Air General Appearance: No Apparent Distress, WD/WN, Obese HEENT: PERRL/EOMI, Pharynx Normal Respiratory: Lungs Clear, Normal Breath Sounds, No Respiratory Distress Cardiovascular: Systolic Murmur, Irregularly Irregular Gastrointestinal: Normal Bowel Sounds, Non Tender, Soft Extremity: Normal Inspection, Non Tender, No Pedal Edema Skin: Normal Color, Warm/Dry Neurologic/Psychiatric: Alert, Oriented x3 Allergies: Coded Allergies: Penicillins (Verified Allergy, Unknown, 07/25/19) sulfamethoxazole (Verified Allergy, Unknown, 07/25/19) trimethoprim (Verified Allergy, Unknown, 07/25/19) Copy Copies To 1: SCOT SHAH MD Discharge Summary Date of Admission Jul 25, 2019 at 13:14 Date of Discharge Discharge Date: Jul 27, 2019 Discharge Time: 10:32 Admission Diagnosis Urinary tract infection Consults/Procedures Consulations Cardiology Discharge Diagnosis Urinary tract infection (1) Acute kidney injury Status: Resolved (2) Lactic acidosis Status: Resolved (3) Atrial fibrillation Status: Chronic (4) Hypertension Status: Chronic (5) Hyperlipidemia Status: Chronic (6) Urinary tract infection Status: Acute Qualifiers: Qualified Codes: N30.00 - Acute cystitis without hematuria Clinical Quality Measures DVT/VTE Risk/Contraindication: Risk Factor Score Per Nursin RFS Level Per Nursing on Admit: 4+=Very High ROVERTO BARCENAS MD Jul 27, 2019 10:32
[2019-07-27] MEDS ORDERED: CEFD300C3 PO (11:19)
--- OUTSIDE RECORDS SUMMARY | 2019-08-15 14:12 | XMS REPORT | Continuity of Care Document ---
Author Organization Unknown Address Unknown Phone Unavailable Allergies Active Description Code Type Severity Reaction Onset Reported/Identified Relationship to Patient Clinical Status Yes Penicillins [id number] Drug Allergy Unknown N/A 07/25/2019 Yes sulfamethoxazole [id number] Drug Allergy Unknown N/A 07/25/2019 Yes trimethoprim [id number] Drug Allergy Unknown N/A 07/25/2019 Medications There is no data. Problems Date Dx Coded Attending Type Code Diagnosis Diagnosed By 07/25/2019 ROVERTO BARCENAS MD, Ot E03.9 HYPOTHYROIDISM, UNSPECIFIED 07/25/2019 ROVERTO BARCENAS MD Ot E78.00 PURE HYPERCHOLESTEROLEMIA, UNSPECIFIED 07/25/2019 ROVERTO BARCENAS MD Ot F41.9 ANXIETY DISORDER, UNSPECIFIED 07/25/2019 ROVERTO BARCENAS MD Ot I10 ESSENTIAL (PRIMARY) HYPERTENSION 07/25/2019 ROVERTO BARCENAS MD Ot I48.91 UNSPECIFIED ATRIAL FIBRILLATION 07/25/2019 ROVERTO BARCENAS MD Ot N39.0 URINARY TRACT INFECTION, SITE NOT SPECIF 07/25/2019 ROVERTO BARCENAS MD Ot R41.82 ALTERED MENTAL STATUS, UNSPECIFIED 07/25/2019 ROVERTO BARCENAS MD Ot Z66 DO NOT RESUSCITATE 07/27/2019 ROVERTO BARCENAS MD Ot E03.9 HYPOTHYROIDISM, UNSPECIFIED 07/27/2019 ROVERTO BARCENAS MD Ot E78.00 PURE HYPERCHOLESTEROLEMIA, UNSPECIFIED 07/27/2019 ROVERTO BARCENAS MD Ot F41.9 ANXIETY DISORDER, UNSPECIFIED 07/27/2019 ROVERTO BARCENAS MD Ot I10 ESSENTIAL (PRIMARY) HYPERTENSION 07/27/2019 ROVERTO BARCENAS MD Ot I48.91 UNSPECIFIED ATRIAL FIBRILLATION 07/27/2019 ROVERTO BARCENAS MD Ot N39.0 URINARY TRACT INFECTION, SITE NOT SPECIF 07/27/2019 ROVERTO BARCENAS MD Ot R41.82 ALTERED MENTAL STATUS, UNSPECIFIED 07/27/2019 SWAPNA PAIGE, ROVERTO Fallon Ot Z66 DO NOT RESUSCITATE Procedures There is no data. Results Test Result Range PROCALCITONIN (PCT) - 07/25/19 09:05 PROCALCITONIN (PCT) 0.04 ng/mL <0.10 Complete blood count (CBC) with automated white blood cell (WBC) differential - 07/25/19 09:09 Blood leukocytes automated count (number/volume) 10.2 10*3/uL 4.3-11.0 Blood erythrocytes automated count (number/volume) 4.24 10*6/uL 4.35-5.85 Venous blood hemoglobin measurement (mass/volume) 12.9 g/dL 11.5-16.0 Blood hematocrit (volume fraction) 40 % 35-52 Automated erythrocyte mean corpuscular volume 95 [foz_us] 80-99 Automated erythrocyte mean corpuscular hemoglobin (mass per erythrocyte) 30 pg 25-34 Automated erythrocyte mean corpuscular hemoglobin concentration measurement (mass/volume) 32 g/dL 32-36 Automated erythrocyte distribution width ratio 14.1 % 10.0- 14.5 Automated blood platelet count (count/volume) 331 10*3/uL 130-400 Automated blood platelet mean volume measurement 9.6 [foz_us] 7.4-10.4 Automated blood neutrophils/100 leukocytes 50 % 42-75 Automated blood lymphocytes/100 leukocytes 42 % 12-44 Blood monocytes/100 leukocytes 7 % 0-12 Automated blood eosinophils/100 leukocytes 1 % 0-10 Automated blood basophils/100 leukocytes 0 % 0-10 Blood neutrophils automated count (number/volume) 5.1 10*3 1.8-7.8 Blood lymphocytes automated count (number/volume) 4.3 10*3 1.0-4.0 Blood monocytes automated count (number/volume) 0.7 10*3 0.0- 1.0 Automated eosinophil count 0.1 10*3/uL 0.0-0.3 Automated blood basophil count (count/volume) 0.0 10*3/uL 0.0-0.1 Comprehensive metabolic panel - 07/25/19 09:09 Serum or plasma sodium measurement (moles/volume) 140 mmol/L 135-145 Serum or plasma potassium measurement (moles/volume) 4.8 mmol/L 3.6-5.0 Serum or plasma chloride measurement (moles/volume) 102 mmol/L 98-107 Carbon dioxide 24 mmol/L 21-32 Serum or plasma anion gap determination (moles/volume) 14 mmol/L 5-14 Serum or plasma urea nitrogen measurement (mass/volume) 33 mg/dL 7-18 Serum or plasma creatinine measurement (mass/volume) 1.51 mg/dL 0.60-1.30 Serum or plasma urea nitrogen/creatinine mass ratio 22 NRG Serum or plasma creatinine measurement with calculation of estimated glomerular filtration rate 33 NRG Serum or plasma glucose measurement (mass/volume) 133 mg/dL 70-105 Serum or plasma calcium measurement (mass/volume) 10.1 mg/dL 8.5-10.1 Serum or plasma total bilirubin measurement (mass/volume) 0.5 mg/dL 0.1-1.0 Serum or plasma alkaline phosphatase measurement (enzymatic activity/volume) 84 U/L 40-136 Serum or plasma aspartate aminotransferase measurement (enzymatic activity/volume) 15 U/L 5-34 Serum or plasma alanine aminotransferase measurement (enzymatic activity/volume) 7 U/L 0-55 Serum or plasma protein measurement (mass/volume) 7.9 g/dL 6.4-8.2 Serum or plasma albumin measurement (mass/volume) 4.1 g/dL 3.2-4.5 CALCIUM CORRECTED 10.0 mg/dL 8.5-10.1 Blood lactic acid measurement (moles/volume) - 07/25/19 09:09 Blood lactic acid measurement (moles/volume) 2.08 mmol/L 0.50- 2.00 PT panel in platelet poor plasma by coagulation assay - 07/25/19 09:09 Prothrombin time (PT) in platelet poor plasma by coagulation assay 13.6 s 12.2-14.7 INR in platelet poor plasma or blood by coagulation assay 1.0 0.8-1.4 Activated partial thromboplastin time (aPTT) in platelet poor plasma bycoagulation assay - 07/25/19 09:09 Activated partial thromboplastin time (aPTT) in platelet poor plasma bycoagulation assay 28 s 24-35 Bacterial blood culture - 07/25/19 09:09 Bacterial blood culture NG NR Bacterial blood culture - 07/25/19 09:55 FREE TEXT EXTERNAL SEE COMMENTS NRG QUANTITY OF GROWTH Isolated [facility] Bacterial blood culture [id number] [facility] Complete urinalysis with reflex to culture - 07/25/19 10:19 Urine color determination YELLOW NRG Urine clarity determination CLEAR NRG Urine pH measurement by test strip 6 5-9 Specific gravity of urine by test strip 1.015 1.016-1.022 Urine protein assay by test strip, semi-quantitative 2+ NEGATIVE Urine glucose detection by automated test strip NEGATIVE NEGATIVE Erythrocytes detection in urine sediment by light microscopy NEGATIVE NEGATIVE Urine ketones detection by automated test strip NEGATIVE NEGATIVE Urine nitrite detection by test strip POSITIVE NEGATIVE Urine total bilirubin detection by test strip NEGATIVE NEGATIVE Urine urobilinogen measurement by automated test strip (mass/volume) NORMAL NORMAL Urine leukocyte esterase detection by dipstick 1+ NEGATIVE Automated urine sediment erythrocyte count by microscopy (number/high power field) NONE NRG Automated urine sediment leukocyte count by microscopy (number/high power field) [HPF] NRG Bacteria detection in urine sediment by light microscopy MODERATE NRG Squamous epithelial cells detection in urine sediment by light microscopy 5-10 NRG Crystals detection in urine sediment by light microscopy NONE NRG Casts detection in urine sediment by light microscopy PRESENT NRG Mucus detection in urine sediment by light microscopy NEGATIVE NRG Complete urinalysis with reflex to culture CULTURE PENDING NRG Hyaline casts detection in urine sediment by light microscopy 25-50 NRG Bacterial urine culture - 07/25/19 10:19 Bacterial urine culture [id number] NRG COLONY COUNT >100,000/ML NRG FTX;REPORTABLE SUSCEPTIBILITY REPORTED 07/27 09:00 NRG Dirithromycin susceptibility test by disk diffusion - 07/25/19 10:19 Gentamicin susceptibility test by minimum inhibitory concentration <= NRG Trimethoprim/sulfamethoxazole susceptibility test by minimum inhibitoryconcentration <= NRG Levofloxacin susceptibility test by minimum inhibitory concentration > NRG Ampicillin susceptibility test by minimum inhibitory concentration <= NRG Cefazolin susceptibility test by minimum inhibitory concentration 2 NRG Ceftriaxone susceptibility test by minimum inhibitory concentration <= NRG Ciprofloxacin susceptibility test by minimum inhibitory concentration > NRG Meropenem susceptibility test by minimum inhibitory concentration <= NRG Nitrofurantoin susceptibility test by minimum inhibitory concentration <= NRG Amoxicillin and clavulanate potassium susc DION <= NRG Serum or plasma lactate measurement (moles/volume) - 07/25/19 11:35 Serum or plasma lactate measurement (moles/volume) 1.51 mmol/L 0.50-2.00 Complete blood count (CBC) with automated white blood cell (WBC) differential - 07/26/19 05:28 Blood leukocytes automated count (number/volume) 6.3 10*3/uL 4.3-11.0 Blood erythrocytes automated count (number/volume) 4.08 10*6/uL 4.35-5.85 Venous blood hemoglobin measurement (mass/volume) 12.0 g/dL 11.5-16.0 Blood hematocrit (volume fraction) 39 % 35-52 Automated erythrocyte mean corpuscular volume 96 [foz_us] 80-99 Automated erythrocyte mean corpuscular hemoglobin (mass per erythrocyte) 29 pg 25-34 Automated erythrocyte mean corpuscular hemoglobin concentration measurement (mass/volume) 31 g/dL 32-36 Automated erythrocyte distribution width ratio 14.3 % 10.0- 14.5 Automated blood platelet count (count/volume) 269 10*3/uL 130-400 Automated blood platelet mean volume measurement 9.5 [foz_us] 7.4-10.4 Automated blood neutrophils/100 leukocytes 65 % 42-75 Automated blood lymphocytes/100 leukocytes 24 % 12-44 Blood monocytes/100 leukocytes 9 % 0-12 Automated blood eosinophils/100 leukocytes 2 % 0-10 Automated blood basophils/100 leukocytes 0 % 0-10 Blood neutrophils automated count (number/volume) 4.1 10*3 1.8-7.8 Blood lymphocytes automated count (number/volume) 1.5 10*3 1.0-4.0 Blood monocytes automated count (number/volume) 0.6 10*3 0.0- 1.0 Automated eosinophil count 0.1 10*3/uL 0.0-0.3 Automated blood basophil count (count/volume) 0.0 10*3/uL 0.0-0.1 Comprehensive metabolic panel - 07/26/19 05:28 Serum or plasma sodium measurement (moles/volume) 141 mmol/L 135-145 Serum or plasma potassium measurement (moles/volume) 4.7 mmol/L 3.6-5.0 Serum or plasma chloride measurement (moles/volume) 109 mmol/L 98-107 Carbon dioxide 24 mmol/L 21-32 Serum or plasma anion gap determination (moles/volume) 8 mmol/L 5-14 Serum or plasma urea nitrogen measurement (mass/volume) 22 mg/dL 7-18 Serum or plasma creatinine measurement (mass/volume) 0.95 mg/dL 0.60-1.30 Serum or plasma urea nitrogen/creatinine mass ratio 23 NRG Serum or plasma creatinine measurement with calculation of estimated glomerular filtration rate 56 NRG Serum or plasma glucose measurement (mass/volume) 82 mg/dL 70-105 Serum or plasma calcium measurement (mass/volume) 9.1 mg/dL 8.5-10.1 Serum or plasma total bilirubin measurement (mass/volume) 0.4 mg/dL 0.1-1.0 Serum or plasma alkaline phosphatase measurement (enzymatic activity/volume) 85 U/L 40-136 Serum or plasma aspartate aminotransferase measurement (enzymatic activity/volume) 11 U/L 5-34 Serum or plasma alanine aminotransferase measurement (enzymatic activity/volume) 8 U/L 0-55 Serum or plasma protein measurement (mass/volume) 6.4 g/dL 6.4-8.2 Serum or plasma albumin measurement (mass/volume) 3.4 g/dL 3.2-4.5 CALCIUM CORRECTED 9.6 mg/dL 8.5-10.1 Encounters ACCT No. Visit Date/Time Discharge Status Pt. Type Provider Facility Loc./Unit Complaint [id number] 07/25/2019 13:14:00 07/27/2019 09:43:00 DIS Inpatient SWAPNA PAIGE, ROVERTO Fallon [facility] 4TH UTI SEPSIS [id number] 09/02/2019 08:45:00 PEN Preadmit ALYSSA PAIGE, SCOT Conner [facility] CARD PAF,MIXED HYPERLIPIDEMIA,HTN
--- OUTSIDE RECORDS SUMMARY | 2019-08-15 22:38 | XMS REPORT | Continuity of Care Document ---
Author Organization Unknown Address Unknown Phone Unavailable Allergies Active Description Code Type Severity Reaction Onset Reported/Identified Relationship to Patient Clinical Status Yes Penicillins [id number] Drug Allergy Unknown N/A 07/25/2019 Yes sulfamethoxazole [id number] Drug Allergy Unknown N/A 07/25/2019 Yes trimethoprim [id number] Drug Allergy Unknown N/A 07/25/2019 Medications There [...] SEE COMMENTS NRG QUANTITY OF GROWTH Isolated [facility] Bacterial blood culture [id number] [facility] Complete urinalysis with reflex to culture - [...] culture - 07/25/19 10:19 Bacterial urine culture [id number] NRG COLONY COUNT >100,000/ML NRG FTX;REPORTABLE SUSCEPTIBILITY [...] Status Pt. Type Provider Facility Loc./Unit Complaint [id number] 07/25/2019 13:14:00 07/27/2019 09:43:00 DIS Inpatient SWAPNA PAIGE, ROVERTO Fallon [facility] 4TH UTI SEPSIS [id number] 09/02/2019 08:45:00 PEN Preadmit ALYSSA PAIGE, SCOT Conner [facility] CARD PAF,MIXED HYPERLIPIDEMIA,HTN
== END 2019-07-27 09:43 | disposition home or self-care (01) ==
LOC: ER 09:09 → UNDOADMOB 13:14 → INTOOBSV 13:14 → 4TH 13:14 → UNDODISOB 07-27 11:55
PROVIDERS: ADMIT Internal Medicine; ATTEND Internal Medicine
DX: N17.9 Acute kidney failure, unspecified (principal); I48.91 Unspecified atrial fibrillation; N30.00 Acute cystitis without hematuria; I10 Essential (primary) hypertension; F41.9 Anxiety disorder, unspecified; E78.00 Pure hypercholesterolemia, unspecified; E03.9 Hypothyroidism, unspecified; E78.5 Hyperlipidemia, unspecified; Z88.0 Allergy status to penicillin; Z88.2 Allergy status to sulfonamides; Z88.1 Allergy status to other antibiotic agents; Z90.710 Acquired absence of both cervix and uterus; Z90.49 Acquired absence of other specified parts of digestive tract; K59.09 Other constipation; E87.2 Acidosis
CPT/HCPCS: 36415; 51702; 71045; 76770; 80053; 81000; 83605; 84145; 85025; 85610; 85730; 87040; 87077; 87088; 87186; 93005; 96361; 96374; G0378

== ENCOUNTER 2020-02-19 17:32 | Inpatient (IN) | payer MEDICARE ==
[~2020-02-19] VITALS: Ht 172.7 cm; Wt 80.1 kg
[~2020-02-19 17:32] MED LIST: ACET-2650 PO; AMLO10TA7 PO; ASCO-262 PO; CALC250T2 PO; CEFD300C3 PO; CHOL10007 PO; CITA20TA9 PO; FLEC100T PO; FURO20TA4 PO; GEMF600T8 PO; LEVO125T6 PO; LORA10TA7 PO; OMG1KC PO; POTA99TA21 PO; QUIN20TA16 PO; SPIR25TA PO; [UNRECOGNIZED DRUG - CODE] TP
--- OUTSIDE RECORDS SUMMARY | 2020-02-19 17:36 | XMS REPORT | Continuity of Care Document ---
Author Organization Unknown Address Unknown Phone Unavailable Allergies Active Description Code Type Severity Reaction Onset Reported/Identified Relationship to Patient Clinical Status Yes Penicillins [id number] Drug Aller gy Unknown N/A 07/25/2019 Yes sulfamethoxazole [id number] Drug Allergy Unknown N/A 07/25/2019 Yes trimethoprim [id number] Drug Allergy Unknown N/A 07/25/2019 Medications There is no data. Problems Date Dx Coded Attending Type Code Diagnosis Diagnosed By 07/25/2019 ROVERTO BARCENAS MD Ot E03. 9 HYPOTHYROIDISM, UNSPECIFIED 07/25/2019 ROVERTO BARCENAS MD Ot E78. 00 PURE HYPERCHOLESTEROLEMIA, UNSPECIFIED 07/25/2019 ROVERTO BARCENAS MD Ot F41. 9 ANXIETY DISORDER, UNSPECIFIED 07/25/2019 ROVERTO BARCENAS MD Ot I10 ESSENTIAL (PRIMARY) HYPERTENSION 07/25/2019 ROVERTO BARCENAS MD Ot I48. 91 UNSPECIFIED ATRIAL FIBRILLATION 07/25/2019 ROVERTO BARCENAS MD Ot N39. 0 URINARY TRACT INFECTION, SITE NOT SPECIF 07/25/2019 ROVERTO BARCENAS MD Ot R41. 82 ALTERED MENTAL STATUS, UNSPECIFIED 07/25/2019 ROVERTO BARCENAS MD Ot Z66 DO NOT RESUSCITATE 07/27/2019 ROVERTO BARCENAS MD Ot E03. 9 HYPOTHYROIDISM, UNSPECIFIED 07/27/2019 ROVERTO BARCENAS MD Ot E78. 00 PURE HYPERCHOLESTEROLEMIA, UNSPECIFIED 07/27/2019 ROVERTO BARCENAS MD Ot E78. 5 HYPERLIPIDEMIA, UNSPECIFIED 07/27/2019 ROVERTO BARCENAS MD Ot E87. 2 ACIDOSIS 07/27/2019 ROVERTO BARCENAS MD Ot F41. 9 ANXIETY DISORDER, UNSPECIFIED 07/27/2019 ROVERTO BARCENAS MD Ot I10 ESSENTIAL (PRIMARY) HYPERTENSION 07/27/2019 ROVERTO BARCENAS MD Ot I48. 91 UNSPECIFIED ATRIAL FIBRILLATION 07/27/2019 ROVERTO BARCENAS MD Ot K59. 09 OTHER CONSTIPATION 07/27/2019 ROVERTO BARCENAS MD Ot N17. 9 ACUTE KIDNEY FAILURE, UNSPECIFIED 07/27/2019 ROVERTO BARCENAS MD Ot N30. 00 ACUTE CYSTITIS WITHOUT HEMATURIA 07/27/2019 ROVERTO BARCENAS MD Ot Z88. 0 ALLERGY STATUS TO PENICILLIN 07/27/2019 ROVERTO BARCENAS MD Ot Z88. 1 ALLERGY STATUS TO OTHER ANTIBIOTIC AGENT 07/27/2019 ROVERTO BARCENAS MD Ot Z88. 2 ALLERGY STATUS TO SULFONAMIDES STATUS 07/27/2019 ROVERTO BARCENAS MD Ot Z90. 49 ACQUIRED ABSENCE OF OTHER SPECIFIED PART 07/27/2019 ROVERTO BARCENAS MD Ot Z90.710 ACQUIRED ABSENCE OF BOTH CERVIX AND UTER 07/27/2019 ROVERTO BARCENAS MD Ot E03. 9 HYPOTHYROIDISM, UNSPECIFIED 07/27/2019 ROVERTO BARCENAS MD Ot E78. 00 PURE HYPERCHOLESTEROLEMIA, UNSPECIFIED 07/27/2019 ROVERTO BARCENAS MD Ot F41. 9 ANXIETY DISORDER, UNSPECIFIED 07/27/2019 ROVERTO BARCENAS MD Ot I10 ESSENTIAL (PRIMARY) HYPERTENSION 07/27/2019 ROVERTO BARCENAS MD Ot I48. 91 UNSPECIFIED ATRIAL FIBRILLATION 07/27/2019 ROVERTO BARCENAS MD Ot N39. 0 URINARY TRACT INFECTION, SITE NOT SPECIF 07/27/2019 ROVERTO BARCENAS MD Ot R41. 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 [facility] 01/03/2020 W M25.561 Ch ronic pain of right knee [facility] 01/03/2020 W M53.3 Sacr oiliac joint dysfunction of right side [facility] 01/03/2020 W E03.4 Atro phy of thyroid (acquired) [facility] 01/03/2020 W E78.2 Mixe d hyperlipidemia [facility] 01/03/2020 W F33.1 Gayla r depressive disorder, recurrent, moderate [facility] [place] 01/03/2020 W I10 Essent ial (primary) hypertension [facility] [place] 01/03/2020 W L01.00 Imp etigo [facility] [place] 01/03/2020 W L57.0 Acti jc keratosis [facility] [place] 01/03/2020 W N30.01 Acu te cystitis with hematuria [facility] [place] 01/10/2020 W E03.4 Atro phy of thyroid (acquired) [facility] [place] 01/10/2020 W I10 Essent ial (primary) hypertension [facility] [place] 01/10/2020 W 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 Results Test Result Range PROCALCITONIN (PCT) - 07/25/19 09:05 PROCALCITONIN (PCT) 0.04 ng/mL <0.10 Complete blood count (CBC) with automate d white blood cell (WBC) differential - 07/25/19 09:09 Blood leukocytes automated count (number/volume) 10.2 10*3/uL 4.3-11.0 Blood erythrocytes automated count (number/volume) 4.24 10*6/uL 4.35-5.85 Venous blood hemoglobin measurement (mass/volume) 12.9 g/dL 11.5-16.0 Blood hematocrit (volume fraction) 40 % 35-52 Automated erythrocyte mean corpuscular volume 95 [ foz_us] 80-99 Automated erythrocyte mean corpuscular h emoglobin (mass per erythrocyte) 30 pg 25-34 Automated erythrocyte mean corpuscular h emoglobin concentration measurement (mass/volume) 32 g/dL 32-36 Automated erythrocyte distribution width ratio 14. 1 % 10.0- 14.5 Automated blood platelet count [...] 10*3 1.0-4.0 Blood monocytes automated count (number/volume) 0. 7 10*3 0.0-1.0 Automated eosinophil count 0.1 10*3/uL 0 .0-0.3 Automated blood basophil count (count/volume) 0.0 10*3/uL 0.0-0.1 Comprehensive metabolic panel - 07/25/19 09:09 Serum or plasma sodium measurement (moles/volume) 140 mmol/L 135-145 Serum or plasma potassium measurement (moles/volume) 4.8 mmol/L 3.6-5.0 Serum or plasma chloride measurement (moles/volume) 102 mmol/L 98-107 Carbon dioxide 24 mmol/L 21-32 Serum or plasma anion gap determination (moles/volume) 14 mmol/L 5-14 Serum or plasma urea nitrogen measurement (mass/volume ) 33 mg/dL 7-18 Serum or plasma creatinine measurement (mass/volume) 1.51 mg/dL 0.60-1.30 Serum or plasma urea nitrogen/creatinine mass ratio 22 NRG Serum or plasma creatinine measurement w ith calculation of estimated glomerular filtration rate 33 NRG Serum or plasma glucose measurement (mass/volume) 133 mg/dL 70-105 Serum or plasma calcium measurement (mass/volume) 10.1 mg/dL 8.5-10.1 Serum or plasma total bilirubin measurement (mass/volu me) 0.5 mg/dL 0.1-1.0 Serum or plasma alkaline phosphatase aidan surement (enzymatic activity/volume) 84 U/L 40-136 Serum or plasma aspartate aminotransfera se measurement (enzymatic activity/volume) 15 U/L 5-34 Serum or plasma alanine aminotransferase measurement (enzymatic activity/volume) 7 U/L 0-55 Serum or plasma protein measurement (mass/volume) 7.9 g/dL 6.4-8.2 Serum or plasma albumin measurement (mass/volume) 4.1 g/dL 3.2-4.5 CALCIUM CORRECTED 10.0 mg/dL 8.5-10.1 Blood lactic acid measurement (moles/vol ume) - 07/25/19 09:09 Blood lactic acid measurement (moles/volume) 2.08 mmol/L 0.50-2.00 PT panel in platelet poor plasma by coag ulation assay - 07/25/19 09:09 Prothrombin time (PT) in platelet poor plasma by coagu lation assay 13.6 s 12.2-14.7 INR in platelet poor plasma or blood by coagulation as say 1.0 0.8-1.4 Activated partial thromboplastin time (a PTT) in platelet poor plasma bycoagulation assay - 07/25/19 09:09 Activated partial thromboplastin time (a PTT) in platelet poor plasma bycoagulation assay 28 s 24-35 Bacterial blood culture - 07/25/19 09:09 Bacterial blood culture NG NRG Bacterial blood culture - 07/25/19 09:55 FREE TEXT EXTERNAL SEE COMMENTS NRG QUANTITY OF GROWTH Isolated NRG Bacterial blood culture [id number] NRG Complete urinalysis with reflex to cultu re - 07/25/19 10:19 Urine color determination YELLOW NRG Urine clarity determination CLEAR NR G Urine pH measurement by test strip 6 5-9 Specific gravity of urine by test strip 1.015 1.016-1.022 Urine protein assay by test strip, semi-quantitative 2+ NEGATIVE Urine glucose detection by automated test strip NE GATIVE NEGATIVE Erythrocytes detection in urine sediment by light micr oscopy NEGATIVE NEGATIVE Urine ketones detection by automated test strip NE GATIVE NEGATIVE Urine nitrite detection by test strip POSITIVE NEGATIVE Urine total bilirubin detection by test strip NEGA TIVE NEGATIVE Urine urobilinogen measurement by automated test strip (mass/volume) NORMAL NORMAL Urine leukocyte esterase detection by dipstick 1+ NEGATIVE Automated urine sediment erythrocyte cou nt by microscopy (number/high power field) NONE NRG Automated urine sediment leukocyte count by microscopy (number/high power field) [HPF] NRG Bacteria detection in urine sediment by light microsco py MODERATE NRG Squamous epithelial cells detection in u rine sediment by light microscopy 5-10 NRG Crystals detection in urine sediment by light microsco py NONE NRG Casts detection in urine sediment by light microscopy PRESENT NRG Mucus detection in urine sediment by light microscopy NEGATIVE NRG Complete urinalysis with reflex to culture CULTURE PENDING NRG Hyaline casts detection in urine sediment by light dion roscopy 25-50 NRG Bacterial urine culture - 07/25/19 10:19 Bacterial urine culture [id number] NRG COLONY COUNT >100,000/ML NRG FTX;REPORTABLE SUSCEPTIBILITY REPORTED 07/27 09:00 NRG Dirithromycin susceptibility test by dis k diffusion - 07/25/19 10:19 Gentamicin susceptibility test by minimum inhibitory c oncentration <= NRG Trimethoprim/sulfamethoxazole susceptibi lity test by minimum inhibitoryconcentration <= NRG Levofloxacin susceptibility test by minimum inhibitory concentration > NRG Ampicillin susceptibility test by minimum inhibitory c oncentration <= NRG Cefazolin susceptibility test by minimum inhibitory co ncentration 2 NRG Ceftriaxone susceptibility test by minimum inhibitory concentration <= NRG Ciprofloxacin susceptibility test by minimum inhibitor y concentration > NRG Meropenem susceptibility test by minimum inhibitory co ncentration <= NRG Nitrofurantoin susceptibility test by mi nimum inhibitory concentration <= NRG Amoxicillin and clavulanate potassium susc DION <= NRG Serum or plasma lactate measurement (mol es/volume) - 07/25/19 11:35 Serum or plasma lactate measurement (moles/volume) 1.51 mmol/L 0.50-2.00 Complete blood count (CBC) with automate d white blood cell (WBC) differential - 07/26/19 05:28 Blood leukocytes automated count (number/volume) 6.3 10*3/uL 4.3-11.0 Blood erythrocytes automated count (number/volume) 4.08 10*6/uL 4.35-5.85 Venous blood hemoglobin measurement (mass/volume) 12.0 g/dL 11.5-16.0 Blood hematocrit (volume fraction) 39 % 35-52 Automated erythrocyte mean corpuscular volume 96 [ foz_us] 80-99 Automated erythrocyte mean corpuscular h emoglobin (mass per erythrocyte) 29 pg 25-34 Automated erythrocyte mean corpuscular h emoglobin concentration measurement (mass/volume) 31 g/dL 32-36 Automated erythrocyte distribution width ratio 14. 3 % 10.0- 14.5 Automated blood platelet count [...] 10*3 1.0-4.0 Blood monocytes automated count (number/volume) 0. 6 10*3 0.0-1.0 Automated eosinophil count 0.1 10*3/uL 0 .0-0.3 Automated blood basophil count (count/volume) 0.0 10*3/uL 0.0-0.1 Comprehensive metabolic panel - 07/26/19 05:28 Serum or plasma sodium measurement (moles/volume) 141 mmol/L 135-145 Serum or plasma potassium measurement (moles/volume) 4.7 mmol/L 3.6-5.0 Serum or plasma chloride measurement (moles/volume) 109 mmol/L 98-107 Carbon dioxide 24 mmol/L 21-32 Serum or plasma anion gap determination (moles/volume) 8 mmol/L 5-14 Serum or plasma urea nitrogen measurement (mass/volume ) 22 mg/dL 7-18 Serum or plasma creatinine measurement (mass/volume) 0.95 mg/dL 0.60-1.30 Serum or plasma urea nitrogen/creatinine mass ratio 23 NRG Serum or plasma creatinine measurement w ith calculation of estimated glomerular filtration rate 56 NRG Serum or plasma glucose measurement (mass/volume) 82 mg/dL 70-105 Serum or plasma calcium measurement (mass/volume) 9.1 mg/dL 8.5-10.1 Serum or plasma total bilirubin measurement (mass/volu me) 0.4 mg/dL 0.1-1.0 Serum or plasma alkaline phosphatase aidan surement (enzymatic activity/volume) 85 U/L 40-136 Serum or plasma aspartate aminotransfera se measurement (enzymatic activity/volume) 11 U/L 5-34 Serum or plasma alanine aminotransferase measurement (enzymatic activity/volume) 8 U/L 0-55 Serum or plasma protein measurement (mass/volume) 6.4 g/dL 6.4-8.2 Serum or plasma albumin measurement (mass/volume) 3.4 g/dL 3.2-4.5 CALCIUM CORRECTED 9.6 mg/dL 8.5-10.1 Encounters ACCT No. Visit Date/Time Discharge Status Pt. Type Provider Facility Loc./Unit Complaint [id number] 11/28/2019 14:01:04 11/28/2019 23:59:5 9 CLS Outpatient [id number] 09/02/2019 08:45:00 23:59:59 CLS Preadmit ALYSSA PAIGE, SCOT Conner [facility] CARD PAF,MIXED HYPERLIPIDEMI A,HTN [id number] 07/25/2019 13:14:00 09:43:00 DIS Inpatient SWAPNA PAIGE, ROVERTO Fallon [facility] 4TH UTI SEPSIS
--- NOTE | 2020-02-19 17:43 | NUR ---
STRAIGHT CATH BY Sindhu BOWERS APRN
--- NOTE | 2020-02-19 17:47 | NUR ---
TO CT PER CART
[2020-02-19 17:51] LABS: BILIRUBIN,URINE NEGATIVE (NEGATIVE); CLARITY,URINE CLEAR; COLOR,URINE YELLOW; GLUCOSE, URINE (UA) NEGATIVE (NEGATIVE); KETONES,URINE 1+ (NEGATIVE); LEUKOCYTE ESTERASE ,URINE NEGATIVE (NEGATIVE); NITRITE,URINE NEGATIVE (NEGATIVE); PH,URINE 7.5 (5-9); PROTEIN,URINE NEGATIVE (NEGATIVE)
--- NOTE | 2020-02-19 17:53 | ED Lower Extremity ---
General Chief Complaint: Trauma-Non Activation Stated Complaint: FALL KNEE PAIN, CONFUSION Source: patient Exam Limitations: no limitations History of Present Illness Date Seen by Provider: Feb 19, 2020 Time Seen by Provider: 17:51 Initial Comments To ER with a fall at [facility]. This was an unwitnessed fall. She has some bruising and complaints of pain to the right knee. Also seems to "not being herself" according to staff. Currently on Keflex 4 days for diagnosis of UTI. She is DO NOT RESUSCITATE status.She is on xarelto for a-fib. Hx hypothyroidism. Onset: just prior to arrival Severity: moderate Pain/Injury Location: right knee Method of Injury: fell Modifying Factors: Worse With Movement Allergies and Home Medications Allergies Coded Allergies: Penicillins (Verified Allergy, Unknown, 07/25/19) sulfamethoxazole (Verified Allergy, Unknown, 07/25/19) trimethoprim (Verified Allergy, Unknown, 07/25/19) Home Medications Acetaminophen 650 Mg Tablet.er, 650 MG PO Q8H PRN for KNEE PAIN, (Reported) Alclometasone Dipropionate 15 Gm Oint...g., TP BID, (Reported) APPLY TO AFFECTED AREA 2X DAILY FOR 2 WEEKS START DATE: 07-19-19 END DATE 08-01-19 Amlodipine Besylate 10 Mg Tablet, 10 MG PO HS, (Reported) Ascorbate Calcium 500 Mg Tablet, 500 MG PO HS, (Reported) Calcium Citrate 250 Mg Tablet, 500 MG PO DAILY, (Reported) Cefdinir 300 Mg Capsule, 300 MG PO BID Prescribed by: ELMIRA BLANTON on 07/27/19 1119 Cholecalciferol (Vitamin D3) 1,000 Unit Capsule, 1,000 UNIT PO HS, (Reported) Citalopram Hydrobromide 20 Mg Tablet, 20 MG PO HS, (Reported) Flecainide Acetate 100 Mg Tablet, 100 MG PO BID, (Reported) Furosemide 20 Mg Tablet, 20 MG PO DAILY, (Reported) Gemfibrozil 600 Mg Tablet, 600 MG PO BID, (Reported) Levothyroxine Sodium 125 Mcg Tablet, 125 MCG PO DAILY, (Reported) Loratadine 10 Mg Tablet, 10 MG PO DAILY PRN for ALLERGIES, (Reported) Paradis 3 Polyunsat Fatty Acids 1,000 Mg Cap, 1,000 MG PO HS, (Reported) Potassium Gluconate 99 Mg Tablet, 99 MG PO DAILY, (Reported) Quinapril HCl 20 Mg Tablet, 20 MG PO BID, (Reported) Spironolactone 25 Mg Tablet, 25 MG PO DAILY, (Reported) Patient Home Medication List Home Medication List Reviewed: Yes Review of Systems Constitutional: see HPI, other (difficult to obtain due to altered mental status.) Past Xpxemhn-Daakai-Bupsej Hx Patient Social History Recent Hopitalizations: Yes (HANK DERAS DR) Seasonal Allergies Seasonal Allergies: No Past Medical History Surgeries: Yes Appendectomy, Gallbladder, Hysterectomy Respiratory: No Cardiac: Yes Atrial Fibrillation, High Cholesterol, Hypertension 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 0.6oz. 81.219230sw; 31.58 BMI Method: General Appearance: WD/WN, no apparent distress, other (confused but alert and pleasant.) HEENT: PERRL/EOMI, normal ENT inspection Neck: non-tender, full range of motion Respiratory: no respiratory distress, no accessory muscle use Gastrointestinal: normal bowel sounds, non tender Hips: bilateral hip non-tender, bilateral hip normal inspection, bilateral hip normal range of motion Legs: bilateral leg non-tender, bilateral leg normal inspection, bilateral leg normal range of motion Knees: right knee deformity, right knee ecchymosis, right knee pain, right knee soft tissue tenderness, right knee swelling Ankles: bilateral ankle non-tender, bilateral ankle normal inspection, bilateral ankle normal range of motion Feet: bilateral foot non-tender, bilateral foot normal inspection, bilateral foot normal range of motion Neurologic/Psychiatric: alert Skin: normal color, warm/dry Dorsalis pedis pulse +1 bilateral Progress/Results/Core Measures Results/Orders Lab Results Laboratory Tests Test 02/19/20 17:35 02/19/20 17:43 02/19/20 18:05 Range/Units White Blood Count 15.5 H 4.3-11.0 10^3/uL Red Blood Count 3.62 L 4.35-5.85 10^6/uL Hemoglobin 11.2 L 11.5-16.0 G/DL Hematocrit 35 35-52 % Mean Corpuscular Volume 95 80-99 FL Mean Corpuscular Hemoglobin 31 25-34 PG Mean Corpuscular Hemoglobin Concent 33 32-36 G/DL Red Cell Distribution Width 14.7 H 10.0-14.5 % Platelet Count 267 130-400 10^3/uL Mean Platelet Volume 8.8 7.4-10.4 FL Neutrophils (%) (Auto) 87 H 42-75 % Lymphocytes (%) (Auto) 7 L 12-44 % Monocytes (%) (Auto) 6 0-12 % Eosinophils (%) (Auto) 0 0-10 % Basophils (%) (Auto) 0 0-10 % Neutrophils # (Auto) 13.5 H 1.8-7.8 X 10^3 Lymphocytes # (Auto) 1.1 1.0-4.0 X 10^3 Monocytes # (Auto) 0.9 0.0-1.0 X 10^3 Eosinophils # (Auto) 0.0 0.0-0.3 10^3/uL Basophils # (Auto) 0.0 0.0-0.1 10^3/uL Neutrophils % (Manual) 90 % Lymphocytes % (Manual) 3 % Monocytes % (Manual) 7 % Blood Morphology Comment NORMAL Sodium Level 141 135-145 MMOL/L Potassium Level 2.9 L 3.6-5.0 MMOL/L Chloride Level 104 98-107 MMOL/L Carbon Dioxide Level 23 21-32 MMOL/L Anion Gap 14 5-14 MMOL/L Blood Urea Nitrogen 14 7-18 MG/DL Creatinine 0.84 0.60-1.30 MG/DL Estimat Glomerular Filtration Rate > 60 BUN/Creatinine Ratio 17 Glucose Level 159 H 70-105 MG/DL Calcium Level 8.9 8.5-10.1 MG/DL Corrected Calcium 9.5 8.5-10.1 MG/DL Total Bilirubin 0.7 0.1-1.0 MG/DL Aspartate Amino Transf (AST/SGOT) 13 5-34 U/L Alanine Aminotransferase (ALT/SGPT) 7 0-55 U/L Alkaline Phosphatase 65 40-136 U/L Total Protein 5.6 L 6.4-8.2 GM/DL Albumin 3.2 3.2-4.5 GM/DL Urine Color YELLOW Urine Clarity CLEAR Urine pH 7.5 5-9 Urine Specific [place] 1.015 L 1.016-1.022 Urine Protein NEGATIVE NEGATIVE Urine Glucose (UA) NEGATIVE NEGATIVE Urine Ketones 1+ H NEGATIVE Urine Nitrite NEGATIVE NEGATIVE Urine Bilirubin NEGATIVE NEGATIVE Urine Urobilinogen 0.2 < = 1.0 MG/DL Urine Leukocyte Esterase NEGATIVE NEGATIVE Urine RBC (Auto) NEGATIVE NEGATIVE Urine RBC RARE /HPF Urine WBC NONE /HPF Urine Squamous Epithelial Cells NONE /HPF Urine Crystals NONE /LPF Urine Bacteria NEGATIVE /HPF Urine Casts NONE /LPF Urine Mucus NEGATIVE /LPF Urine Culture Indicated NO Procalcitonin 0.04 <0.10 NG/ML My Orders Orders - JANINE BOWERS [employer]ICER Fentanyl Injection (Sublimaze Injection (02/19/20 18:00) Potassium Chloride (Tablet) (Klor Con Ta (02/19/20 18:15) Procalcitonin (Pct) (02/19/20 18:05) Fentanyl Injection (Sublimaze Injection (02/19/20 19:00) Medications Given in ED Current Medications Medications Dose Ordered Sig/Bishnu Route Start Time Stop Time Status Last Admin Dose Admin Fentanyl Citrate 25 mcg ONCE PRN IVP 02/19/20 18:00 02/19/20 19:08 25 MCG Potassium Chloride 40 meq ONCE ONCE PO 02/19/20 18:15 02/19/20 18:16 DC 02/19/20 18:16 40 MEQ Vital Signs/I&O 02/19/20 17:34 Temp 36.2 Pulse 76 Resp 18 B/P (MAP) 126/62 (83) Pulse Ox 96 O2 Delivery Room Air Diagnostic Imaging Diagonstic Imaging: Xray Comments NAME: TATE STEPHEN Renea [facility] REC#: [id number] PT STATUS: REG ER : 1935 PHYSICIAN: ERIC CASTILLO MD ADMIT DATE: 02/19/20/ER Draft Date of Exam:02/19/20 CT HEAD/CERVICAL SPINE WO CLINICAL INDICATION: Patient is status post fall. EXAM: Head CT without IV contrast. Axial CT scan of the cervical spine with sagittal and coronal reformations. Auto Exposure Controls were utilized during the CT exam to meet ALARA standards for radiation dose reduction. COMPARISON: None. FINDINGS: Head CT: There is no evidence of intracranial hemorrhage, brain herniation, or midline shift. There is a 3.1 cm x 2.8 cm partially calcified rounded mass in the midline anterior skull base region between both frontal lobes. This is suspected to represent a partially calcified meningioma. There are diffuse patchy and confluent low-attenuation white matter changes seen throughout both cerebral hemispheres and periventricular regions which may be related to chronic small vessel ischemic disease and leukoaraiosis. There is diffuse brain parenchymal volume loss. There is no evidence of acute cerebral infarct. There is a small chronic ischemic area in the right frontal lobe white matter region. There is no hydrocephalus. Basal cisterns show no other significant abnormality. Extracranial soft tissues, skull, and orbits are unremarkable. There is no skull fracture. There is small amount of fluid in the right mastoid air cells. Cervical spine: There is no acute cervical spine fracture. There is degenerative grade 1 anterolisthesis of T1 on T2. There are hypertrophic spurs and facet arthropathy seen. The thyroid gland is absent which may be from postoperative or post-treatment changes. There is no significant neck soft tissue abnormality. IMPRESSION: 1: There is no evidence of acute intracranial process. There is no intracranial hemorrhage or skull fracture. 2: There is multilevel cervical spine degenerative disease with no acute fracture. 3: There is a 3.1 cm partially calcified dural-based mass in the midline anterior cranial fossa region, suspected to represent a meningioma. If this is not a known finding, then nonemergent MRI of the brain with and without IV contrast is suggested for further evaluation. 4: Multilevel cervical spine degenerative disease. Dictated on workstation # [id number] Dict: 02/19/20 1800 Trans: 02/19/20 1824 AS6 [id number] Interpreted by: TOMMIE NAVA MD Electronically signed by: NAME: [facility]ILEETATE [facility] REC#: [id number] PT STATUS: REG ER : 1935 PHYSICIAN: ERIC CASTILLO MD ADMIT DATE: 02/19/20/ER Draft Date of Exam:02/19/20 KNEE, RIGHT, 3 VIEWS CLINICAL INDICATION: Patient status post fall with pain. EXAM: X-ray of the right knee, 3 views. COMPARISON: None. FINDINGS: There is a comminuted fracture involving the distal femoral metaphysis which is mildly impacted. Unable to exclude intra-articular component of the fracture. There appears to be slight posterior displacement of the distal fracture fragment by roughly 9 mm. There is a knee effusion. There is severe medial compartment joint space loss with sclerosis. There is hypertrophic spurs and tricompartmental regions. There is slight varus annulation of the knee. There are vascular calcifications seen. IMPRESSION: 1: There is an impacted fracture of the distal femoral metaphysis with slight posterior displacement of the distal fracture fragment. There is a right knee effusion. 2: There is tricompartmental osteophytosis of the right knee. Dictated on workstation # [id number] Dict: 02/19/201816 Trans: 02/19/201826 [facility] [id number] Interpreted by: TOMMIE NAVA MD Electronically signed by: Departure Communication (Admissions) Time/Spoke to Admitting Phy: 19:33 0-She has a a right distal femur fracture, questionable subcapital right hip fracture. Spoke with the patient's son Esau about how aggressive they like to be. He states "we've numbness today was coming for a long time". Those surgery would be recommended for the knee fracture in an otherwise healthy patient her atrial fibrillation, comorbidities and advanced age would make her rather high risk for that. Spoke with Dr. Dubose, you could try plating this but her bones are osteopenic enough that they may not hold a screw. A knee replacement may be the best option versus immobilization and pain control. Esau feels like even if she had the surgery she would not be able to tolerate the rehabilitation ass ociated with that. While having surgery would give her the best chance at walking again, surgery does not guarantee that she would walk again. Patient's son Esau is leaning towards nonsurgical management with immobilization and pain control, he'll speak with other family members and call me back. Patient is in a knee immobilizer at this time. Additionally, I mentioned the frontal brain lesion on CT, son states this is known, she had it looked at many years ago and hasn't had any troubles so no treatment was recommended. 1932-spoke with the son Esau again, has spoken with his siblings and agrees with proceeding with nonoperative management as he feels that would be the best option for his mom. This would be pain control and a knee immobilizer. He doesn't feel she would fare well with surgery and I believe him to be correct. Spoke with Dr. Dubose and he agrees with this plan he'll consult tomorrow. Spoke with Dr. Samuels she'll admit. Family would be interested in face timing with the patient if possible. When I discussed with the patient that she has a femur fracture she sighs and states "just put me to sleep". Impression Primary Impression: Right femoral fracture Qualified Codes: S72.91XA - Unspecified fracture of right femur, initial encounter for closed fracture Additional Impressions: Anticoagulant long-term use Atrial fibrillation Qualified Codes: I48.91 - Unspecified atrial fibrillation Senescence Meningioma Disposition: ADMITTED INPATIENT Condition: Stable Admissions Decision to Admit Reason: Admit from ER (General) Decision to Admit/Date: Feb 19, 2020 Time/Decision to Admit Time: 19:02 Departure-Patient Inst. Referrals: NO,LOCAL PHYSICIAN (PCP/Family) Primary Care Physician JANINE BOWERS APRN Feb 19, 2020 17:53
[2020-02-19 17:56] LABS: BASOPHILS % (AUTO) 0 % (0-10); EOSINOPHILS % (AUTO) 0 % (0-10); HEMATOCRIT 35 % (35-52); HEMOGLOBIN 11.2 G/DL (11.5-16.0); LYMPHOCYTES # (AUTO) 1.1 X 10^3 (1.0-4.0); LYMPHOCYTES % (AUTO) 7 % (12-44); MEAN CORPUSCULAR HEMOGLOBIN 31 PG (25-34); MEAN CORPUSCULAR HGB CONC 33 G/DL (32-36); MEAN CORPUSCULAR VOLUME 95 FL (80-99); MEAN PLATELET VOLUME 8.8 FL (7.4-10.4); MONOCYTES # (AUTO) 0.9 X 10^3 (0.0-1.0); MONOCYTES % (AUTO) 6 % (0-12); NEUTROPHILS # (AUTO) 13.5 X 10^3 (1.8-7.8); NEUTROPHILS % (AUTO) 87 % (42-75); PLATELET COUNT 267 10^3/uL (130-400); RED CELL DISTRIBUTION WIDTH 14.7 % (10.0-14.5); WHITE BLOOD COUNT 15.5 10^3/uL (4.3-11.0)
[2020-02-19 18:01] LABS: BACTERIA,URINE NEGATIVE /HPF; RBC,URINE RARE /HPF
[2020-02-19 18:01] LABS: ALBUMIN 3.2 GM/DL (3.2-4.5); CHLORIDE 104 MMOL/L (98-107); POTASSIUM 2.9 MMOL/L (3.6-5.0)
[2020-02-19 18:02] LABS: SODIUM 141 MMOL/L (135-145)
[2020-02-19 18:03] LABS: CALCIUM 8.9 MG/DL (8.5-10.1)
[2020-02-19 18:04] LABS: GLUCOSE 159 MG/DL (70-105); TOTAL PROTEIN 5.6 GM/DL (6.4-8.2)
[2020-02-19 18:05] LABS: CARBON DIOXIDE 23 MMOL/L (21-32)
[2020-02-19 18:06] LABS: BILIRUBIN,TOTAL 0.7 MG/DL (0.1-1.0)
[2020-02-19 18:07] LABS: ALKALINE PHOSPHATASE 65 U/L (40-136)
[2020-02-19 18:08] LABS: CREATININE SERUM 0.84 MG/DL (0.60-1.30); GFR ESTIMATED > 60
[2020-02-19 18:09] LABS: BUN/CREATININE RATIO 17
[2020-02-19 18:10] LABS: ALANINE AMINOTRANSFERASE 7 U/L (0-55)
--- NOTE | 2020-02-19 18:12 | NUR ---
RETURN FROM CT.
[2020-02-19] MEDS ORDERED: KCL 10 MEQ TAB (MICRO K) PO ONE (18:15)
[2020-02-19] MEDS: fentaNYL INJECTION 100 MCG/2 ML AMP IVP PRN ×2 (18:17→19:08)
[2020-02-19 18:21] LABS: LYMPHOCYTES % (MANUAL) 3 %; MONOCYTES % (MANUAL) 7 %; NEUTROPHILS % (MANUAL) 90 %
[2020-02-19 18:22] LABS: RBC MORPH NORMAL
--- NOTE | 2020-02-19 18:25 | Diagnostic Imaging Report ---
CLINICAL INDICATION: Patient is status post fall. EXAM: Head CT without IV contrast. Axial CT scan of the cervical spine with sagittal and coronal reformations. Auto Exposure Controls were utilized during the CT exam to meet ALARA standards for radiation dose reduction. COMPARISON: None. FINDINGS: Head CT: There is no evidence of intracranial hemorrhage, brain herniation, or midline shift. There is a 3.1 cm x 2.8 cm partially calcified rounded mass in the midline anterior skull base region between both frontal lobes. This is suspected to represent a partially calcified meningioma. There are diffuse patchy and confluent low-attenuation white matter changes seen throughout both cerebral hemispheres and periventricular regions which may be related to chronic small vessel ischemic disease and leukoaraiosis. There is diffuse brain parenchymal volume loss. There is no evidence of acute cerebral infarct. There is a small chronic ischemic area in the right frontal lobe white matter region. There is no hydrocephalus. Basal cisterns show no other significant abnormality. Extracranial soft tissues, skull, and orbits are unremarkable. There is no skull fracture. There is small amount of fluid in the right mastoid air cells. Cervical spine: There is no acute cervical spine fracture. There is degenerative grade 1 anterolisthesis of T1 on T2. There are hypertrophic spurs and facet arthropathy seen. The thyroid gland is absent which may be from postoperative or post-treatment changes. There is no significant neck soft tissue abnormality. IMPRESSION: 1: There is no evidence of acute intracranial process. There is no intracranial hemorrhage or skull fracture. 2: There is multilevel cervical spine degenerative disease with no acute fracture. 3: There is a 3.1 cm partially calcified dural-based mass in the midline anterior cranial fossa region, suspected to represent a meningioma. If this is not a known finding, then nonemergent MRI of the brain with and without IV contrast is suggested for further evaluation. 4: Multilevel cervical spine degenerative disease. Dictated by: Dictated on workstation # [id number]
--- NOTE | 2020-02-19 18:26 | Diagnostic Imaging Report ---
EXAMINATION: Single view of the chest. INDICATION: Fall. COMPARISON: Previous study from July 25, 2019. FINDINGS: There is enlargement of the cardiac silhouette but this has not changed since the prior exam. The central pulmonary vascularity appears appropriate without current failure. There are stable chronic central interstitial changes within the lungs. There is no new infiltrate or consolidation. There is no effusion or pneumothorax. There are degenerative features within the spine and shoulders. No acute fracture evident. IMPRESSION: Stable radiographic findings in the chest. No acute cardiopulmonary process evident. There is enlargement of the cardiac silhouette without current failure. Lungs appear clear. No acute fracture is demonstrated. Dictated by: Dictated on workstation # [id number]
--- NOTE | 2020-02-19 18:27 | Diagnostic Imaging Report ---
CLINICAL INDICATION: Patient status post fall with pain. EXAM: X-ray of the right knee, 3 views. COMPARISON: None. FINDINGS: There is a comminuted fracture involving the distal femoral metaphysis which is mildly impacted. Unable to exclude intra-articular component of the fracture. There appears to be slight posterior displacement of the distal fracture fragment by roughly 9 mm. There is a knee effusion. There is severe medial compartment joint space loss with sclerosis. There is hypertrophic spurs and tricompartmental regions. There is slight varus annulation of the knee. There are vascular calcifications seen. IMPRESSION: 1: There is an impacted fracture of the distal femoral metaphysis with slight posterior displacement of the distal fracture fragment. There is a right knee effusion. 2: There is tricompartmental osteophytosis of the right knee. Dictated by: Dictated on workstation # [id number]
--- NOTE | 2020-02-19 18:29 | Diagnostic Imaging Report ---
EXAMINATION: Right hip and pelvis. INDICATION: Fall, pain. FINDINGS: There are severe arthritic changes demonstrated of the right hip with marked abnormal joint space loss. There is sclerosis within the femoral head which suggests some underlying osteonecrosis. Additionally, there appears to be foreshortening of the right femoral neck. While this may be accentuated by osteophytes, this is suspect for an impacted occult femoral neck fracture. Consider CT imaging. Left hip demonstrates osteophytic changes which are of lesser severity. There is no left dislocation or findings of a proximal left femoral fracture. The pelvic ring appears intact without evidence of pubic symphysis or SI joint diastasis. 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 While the appearance of shortening of the femoral neck is likely accentuated by femoral head osteophytes, given the foreshortening and low bone mineral density which limits sensitivity, CT through the right hip is recommended to assess for an occult right femoral neck fracture. Dictated by: Dictated on workstation # [id number]
--- NOTE | 2020-02-19 18:52 | NUR ---
JANINE BOWERS APRN CALLED AND TALKED WITH SON ABOUT HOW PATIENT X RAY DONE
--- NOTE | 2020-02-19 18:58 | NUR ---
REPORT TO CHIDI. Addendum: 02/19/20 at 1859 by PMCTHUAN STAFF AT [facility] CALLED AND UPDATE GIVEN.
[2020-02-19] MEDS ORDERED: fentaNYL INJECTION 100 MCG/2 ML AMP IVP ONE (19:00)
--- OUTSIDE RECORDS SUMMARY | 2020-02-19 19:55 | XMS REPORT | Continuity of Care Document ---
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 [facility] 01/03/2020 W M25.561 Ch ronic pain of right knee [facility] 01/03/2020 W M53.3 Sacr oiliac joint dysfunction of right side [facility] 01/03/2020 W E03.4 Atro phy of thyroid (acquired) [facility] 01/03/2020 W E78.2 Mixe d hyperlipidemia [facility] 01/03/2020 W F33.1 Gayla r depressive disorder, recurrent, moderate [facility] 01/03/2020 W I10 Essent ial (primary) hypertension [facility] 01/03/2020 W L01.00 Imp etigo [facility], [facility] 01/03/2020 W L57.0 Acti jc keratosis [facility] 01/03/2020 W N30.01 Acu te cystitis with hematuria [facility] 01/10/2020 W E03.4 Atro phy of thyroid (acquired) [facility] 01/10/2020 W I10 Essent ial (primary) hypertension [facility] 01/10/2020 W 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 [facility] 02/04/2020 W K59.01 Slo w transit constipation [facility], [facility] 02/04/2020 W R14.1 Abdo dennys gas pain [facility], [facility] 02/13/2020 W B37.3 Vulv ovaginal candidiasis [facility], [facility] 02/13/2020 W L01.00 Imp etigo Jeannie, [facility] 02/13/2020 W K59.01 Slo w transit constipation [facility], Aide 02/13/2020 W R14.1 Abdo dennys gas pain [facility], Aide 02/14/2020 W K59.01 Slo w transit constipation [facility], Aide 02/14/2020 W R14.1 Abdo dennys gas pain [...] OF GROWTH Isolated NRG Bacterial blood culture [id number] NRG Complete urinalysis with reflex to cultu [...] culture - 07/25/19 10:19 Bacterial urine culture [id number] NRG COLONY COUNT >100,000/ML NRG FTX;REPORTABLE SUSCEPTIBILITY [...] g/dL 3.2-4.5 CALCIUM CORRECTED 9.6 mg/dL 8.5-10.1 Complete blood count (CBC) with automate d white blood cell (WBC) differential - 02/19/20 17:35 Blood leukocytes automated count (number/volume) 15.5 10*3/uL 4.3-11.0 Blood erythrocytes automated count (number/volume) 3.62 10*6/uL 4.35-5.85 Venous blood hemoglobin measurement (mass/volume) 11.2 g/dL 11.5-16.0 Blood hematocrit (volume fraction) 35 % 35-52 Automated erythrocyte mean corpuscular volume 95 [ foz_us] 80-99 Automated erythrocyte mean corpuscular h emoglobin (mass per erythrocyte) 31 pg 25-34 Automated erythrocyte mean corpuscular h emoglobin concentration measurement (mass/volume) 33 g/dL 32-36 Automated erythrocyte distribution width ratio 14. 7 % 10.0- 14.5 Automated blood platelet count (count/volume) 267 10*3/uL 130-400 Automated blood platelet mean volume measurement 8.8 [foz_us] 7.4-10.4 Automated blood neutrophils/100 leukocytes 87 % 42-75 Automated blood lymphocytes/100 leukocytes 7 % 12-44 Blood monocytes/100 leukocytes 6 % 0-12 Automated blood eosinophils/100 leukocytes 0 % 0-10 Automated blood basophils/100 leukocytes 0 % 0-10 Blood neutrophils automated count (number/volume) 13.5 10*3 1.8-7.8 Blood lymphocytes automated count (number/volume) 1.1 10*3 1.0-4.0 Blood monocytes automated count (number/volume) 0. 9 10*3 0.0-1.0 Automated eosinophil count 0.0 10*3/uL 0 .0-0.3 Automated blood basophil count (count/volume) 0.0 10*3/uL 0.0-0.1 Comprehensive metabolic panel - 02/19/20 17:35 Serum or plasma sodium measurement (moles/volume) 141 mmol/L 135-145 Serum or plasma potassium measurement (moles/volume) 2.9 mmol/L 3.6-5.0 Serum or plasma chloride measurement (moles/volume) 104 mmol/L 98-107 Carbon dioxide 23 mmol/L 21-32 Serum or plasma anion gap determination (moles/volume) 14 mmol/L 5-14 Serum or plasma urea nitrogen measurement (mass/volume ) 14 mg/dL 7-18 Serum or plasma creatinine measurement (mass/volume) 0.84 mg/dL 0.60-1.30 Serum or plasma urea nitrogen/creatinine mass ratio 17 NRG Serum or plasma creatinine measurement w ith calculation of estimated glomerular filtration rate > NRG Serum or plasma glucose measurement (mass/volume) 159 mg/dL 70-105 Serum or plasma calcium measurement (mass/volume) 8.9 mg/dL 8.5-10.1 Serum or plasma total bilirubin measurement (mass/volu me) 0.7 mg/dL 0.1-1.0 Serum or plasma alkaline phosphatase aidan surement (enzymatic activity/volume) 65 U/L 40-136 Serum or plasma aspartate aminotransfera se measurement (enzymatic activity/volume) 13 U/L 5-34 Serum or plasma alanine aminotransferase measurement (enzymatic activity/volume) 7 U/L 0-55 Serum or plasma protein measurement (mass/volume) 5.6 g/dL 6.4-8.2 Serum or plasma albumin measurement (mass/volume) 3.2 g/dL 3.2-4.5 CALCIUM CORRECTED 9.5 mg/dL 8.5-10.1 Manual absolute plasma cell count - 02/04 03/25 17:35 Blood monocytes/100 leukocytes 7 % NRG Manual blood segmented neutrophils/100 leukocytes 90 % NRG Manual blood lymphocytes/100 leukocytes 3 % NRG Blood erythrocyte morphology finding identification NORMAL NRG Complete urinalysis with reflex to cultu re - 02/19/20 17:43 Urine color determination YELLOW NRG Urine clarity determination CLEAR NR G Urine pH measurement by test strip 7.5 5-9 Specific gravity of urine by test strip 1.015 1.016-1.022 Urine protein assay by test strip, semi-quantitative NEGATIVE NEGATIVE Urine glucose detection by automated test strip NE GATIVE NEGATIVE Erythrocytes detection in urine sediment by light micr oscopy NEGATIVE NEGATIVE Urine ketones detection by automated test strip 1+ NEGATIVE Urine nitrite detection by test strip NEGATIVE NEGATIVE Urine total bilirubin detection by test strip NEGA TIVE NEGATIVE Urine urobilinogen measurement by automated test strip (mass/volume) 0.2 mg/dL < = 1.0 Urine leukocyte esterase detection by dipstick NEG ATIVE NEGATIVE Automated urine sediment erythrocyte cou nt by microscopy (number/high power field) RARE NRG Automated urine sediment leukocyte count by microscopy (number/high power field) NONE NRG Bacteria detection in urine sediment by light microsco py NEGATIVE NRG Squamous epithelial cells detection in u rine sediment by light microscopy NONE NRG Crystals detection in urine sediment by light microsco py NONE NRG Casts detection in urine sediment by light microscopy NONE NRG Mucus detection in urine sediment by light microscopy NEGATIVE NRG Complete urinalysis with reflex to culture NO NRG PROCALCITONIN (PCT) - 02/19/20 18:05 PROCALCITONIN (PCT) 0.04 ng/mL <0.10 Encounters ACCT No. Visit Date/Time Discharge Status Pt. Type Provider Facility Loc./Unit Complaint [id number] 11/28/2019 14:01:04 11/28/2019 23:59:5 9 CLS Outpatient [id number] 09/02/2019 08:45:00 23:59:59 CLS Preadmit ALYSSA PAIGE, SCOT Conner [facility] CARD PAF,MIXED HYPERLIPIDEMI A,HTN [id number] 07/25/2019 13:14:00 09:43:00 DIS Inpatient SWAPNA PAIGE, ROVERTO Fallon [facility] 4TH UTI SEPSIS [id number] 02/19/2020 19:28:[address] Inpatient ORTEGA DO ZHEN [facility] [place] 4TH HYPOKALEMIA, RT KNEE FRACTUR E
--- NOTE | 2020-02-19 20:10 | NUR ---
Pt admitted to room 415-1, with an admitting diagnosis of Hypokalemia and Right Knee Fracture, on 02/19/20 from ED, accompanied by staff. TATE STEPHEN introduced to surroundings, call light, bed controls, phone, TV, temperature control, lights, meal times, smoking policy, visitor policy, side rail policy, bathrooms and showers. Patient Rights given to patient in the handbook. TATE STEPHEN verbalizes understanding that [facility] is not responsible for the loss or damage to any personal effects or valuables that are kept in the patients posession during their hospitalization. Patient and/or family were informed about the Rapid Response Team and its purpose.
[2020-02-19 20:26] VITALS: BP 124/47
[2020-02-19] MEDS ORDERED: HYDROcodone/APAP 5 MG/325 MG (LORTAB) TAB PO PRN (20:30)
[2020-02-19] MEDS ORDERED: fentaNYL INJECTION 100 MCG/2 ML AMP IV PRN (20:30)
[2020-02-19] MEDS ORDERED: ONDANSETRON 4 MG/2 ML (SDV) Z0FRAN IV PRN (20:30)
[2020-02-19] MEDS ORDERED: CATHETER FLUSH 10 ML SYR IV PRN (20:30)
[2020-02-19] MEDS: NS IV 1000 ML 1,000 ML IV SCH (21:28)
[2020-02-19] MEDS: POTASSIUM CL 10 MEQ/50 ML IVPB (PRE-MIX) IV SCH ×2 (21:32→22:48)
[2020-02-19 23:56] VITALS: BP 151/65
[2020-02-20] MEDS ORDERED: RIVA10TA PO (02:02)
[2020-02-20 04:59] VITALS: BP 143/60
[2020-02-20] MEDS: KCL 20 MEQ TAB (K-DUR) PO SCH (06:21)
[2020-02-20 07:12] LABS: BUN/CREATININE RATIO 20; CALCIUM 8.9 MG/DL (8.5-10.1); CARBON DIOXIDE 25 MMOL/L (21-32); CHLORIDE 106 MMOL/L (98-107); GFR ESTIMATED > 60; GLUCOSE 126 MG/DL (70-105); POTASSIUM 3.7 MMOL/L (3.6-5.0); SODIUM 142 MMOL/L (135-145)
[2020-02-20 08:00] VITALS: BP 159/51
[2020-02-20] MEDS ORDERED: LIDO76.5 TP (08:11)
[2020-02-20] MEDS ORDERED: DOCU-238 PO (08:11)
[2020-02-20] MEDS ORDERED: PETR18JE3 TP (08:11)
[2020-02-20] MEDS ORDERED: OXYB5TAB13 PO (08:11)
[2020-02-20] MEDS ORDERED: ACET-168 PO (08:11)
[2020-02-20] MEDS ORDERED: PANT40TA2 PO (08:11)
[2020-02-20] MEDS ORDERED: CHOL400T PO (08:23)
[2020-02-20] MEDS ORDERED: AMLO5TAB9 PO (08:23)
[2020-02-20] MEDS ORDERED: POLY238P10 PO (08:23)
[2020-02-20] MEDS ORDERED: ACET-2267 PO (08:37)
[2020-02-20] MEDS ORDERED: HYDR28.341 RC (08:37)
[2020-02-20] MEDS ORDERED: LOPE2CAP PO (08:37)
[2020-02-20] MEDS ORDERED: NYST15PO2 TOP (08:42)
[2020-02-20] MEDS ORDERED: CEPH500C PO (08:42)
[2020-02-20] MEDS ORDERED: MUPI22OI2 TOP (08:44)
--- NOTE | 2020-02-20 08:49 | NUR ---
ENTERED THE MED REC USING THE MAR FROM [facility] I ALSO WENT THRU THE EXT MED HISTORY AND SPOKE WITH VERNON TO VERIFY MEDS THAT WERE NOT LISTED- THEY ARE: NYSTATIN POWDER (CREAM IS ALSO LISTED BUT ACCORDING TO THE FACILITY THAT WAS NOT THE CORRECT PRODUCT), BACTROBAN OINT, AND CEPHALEXIN. THOSE HAVE ALL BEEN ADDED TO THE MED REC GEMFIBROZIL 600MG- PT WAS TAKING THIS MEDICATION AND LAST RECEIVED DEC 2019 FOR A 90 DAY SUPPLY- HOWEVER THE FACILITY SAID THIS MED HAS BEEN DISCONTINUED
--- NOTE | 2020-02-20 09:51 | Consultation - Ortho ---
Consult - Ortho Subjective Date of Exam 02/20/20 Chief Complaint Fracture right distal femur HPI/Events since last exam Mrs. Dempsey is an 84-year-old white female who was a resident at a [facility]. She had an undocumented fall yesterday and was complaining of pain in the right lower extremity. She is brought to the emergency room where she is evaluated and x-rayed noted to have fracture of her right distal femur. X-rays also showed severe arthritic changes of the knee as well as the right hip. There was concern that she may have an impacted fracture of the right hip in addition to her severe osteoarthritis. Apparently she does do some ambulation with a walker but she is limited. I'm unable to get a good history from the patient due to some dementia Medical, Surgical History Reviewed and no additions or changes Social History Reviewed and no additions or changes Family History Reviewed and no additions or changes Review of Systems Reviewed and no additions or changes Allergies: Coded Allergies: Penicillins (Verified Allergy, Unknown, 07/25/19) sulfamethoxazole (Verified Allergy, Unknown, 07/25/19) trimethoprim (Verified Allergy, Unknown, 07/25/19) Home Meds Reported Medications Mupirocin (Mupirocin) 22 Gm Oint...g., 1 APPLIC TOP TID, EA 02/20/20 Cephalexin (Cephalexin) 500 Mg Capsule, 500 MG PO TID, CAP FILLED 02-13-2020 #21/7 DAY SUPPLY 02/20/20 Nystatin (Nyamyc) 15 Gm Powder, 1 APPLIC TOP TID, EA APPLY TO VAGINAL/ANAL TISSUE UNTIL HEALED 02/20/20 Acetaminophen (Tylenol Extra Strength) 500 Mg Tablet, 500 MG PO HS PRN for PAIN- MILD (1-4), TAB 02/20/20 Hydrocortisone (Proctosol-Hc) 28.35 Gm Cream.appl, 1 APPLIC RC BID PRN for HEMMORRHOID DISCOMFORT, APPLIC 02/20/20 Loperamide HCl (Loperamide) 2 Mg Capsule, 2 MG PO QID PRN for LOOSE STOOLS, CAP TAKE 1 CAP NEEDED AFTER EACH LOOSE STOOL TO UP FOUR TIMES DAILY 02/20/20 Polyethylene Glycol 3350 (Gavilax) 238 Gm Powder, 17 GM PO 1900, EA 02/20/20 Amlodipine Besylate (Amlodipine Besylate) 5 Mg Tablet, 5 MG PO 1900, TAB 02/20/20 Cholecalciferol (Vitamin D3) (Vitamin D3) 10 Mcg Tablet, 10 MCG PO DAILY, TAB 02/20/20 Docusate Sodium (Stool Softener) 100 Mg Capsule, 100 MG PO DAILY PRN for CONSTIPATION-1ST LINE, CAP GIVE PER RESIDENT REQUEST 02/20/20 Oxybutynin Chloride (Oxybutynin Chloride) 5 Mg Tablet, 2.5 MG PO BID, TAB TAKES OF A 5MG TABLET TWICE DAILY 02/20/20 Pantoprazole Sodium (Protonix) 40 Mg Tablet.dr, 40 MG PO DAILY, TAB 02/20/20 Petrolatum,White (Vaseline) 18 Ml Jelly.ml., 1 APPLIC TP BID for DRY SKIN, TUBE APPLY TO THE FACE 02/20/20 Lidocaine HCl (Aspercreme) 76.5 Gm Cream..g., 1 GM TP DAILY PRN, TUBE APPLY TO LOWER BACK AND BILAT KNEES 02/20/20 Acetaminophen (Acetaminophen Extra Strength) 500 Mg Tablet, 500 MG PO Q6H PRN for PAIN-MILD (1-4), TAB 02/20/20 Rivaroxaban (Xarelto) 10 Mg Tablet, 10 MG PO DAILY TAKES DAILY AT 1700 02/20/20 Loratadine (Loratadine) 10 Mg Tablet, 10 MG PO DAILY PRN for ALLERGIES, TAB 07/25/19 Citalopram Hydrobromide (Citalopram HBr) 20 Mg Tablet, 20 MG PO 1900, TAB 07/25/19 Calcium Citrate (Calcium Citrate) 250 Mg Tablet, 500 MG PO DAILY, TAB 07/25/19 Flecainide Acetate (Flecainide Acetate) 100 Mg Tablet, 100 MG PO BID, TAB 07/25/19 Potassium Gluconate (Potassium) 99 Mg Tablet, 99 MG PO DAILY PRN for WHEN LASIX IS GIVEN, TAB GIVE POTASSIUM WHEN A DOSE OF FUROSEMIDE IS GIVEN 07/25/19 Quinapril HCl (Quinapril HCl) 20 Mg Tablet, 20 MG PO BID, TAB 07/25/19 Furosemide (Furosemide) 20 Mg Tablet, 20 MG PO DAILY PRN for EDEMA, TAB GIVE POTASSIUM WHEN A DOSE OF FUROSEMIDE IS GIVEN 07/25/19 Levothyroxine Sodium (Levothyroxine Sodium) 125 Mcg Tablet, 125 MCG PO DAILY, TAB 07/25/19 Discontinued Reported Medications Acetaminophen (Tylenol Arthritis) 650 Mg Tablet.er, 650 MG PO Q8H PRN for KNEE PAIN, TAB 07/25/19 Ascorbate Calcium (Vitamin C) 500 Mg Tablet, 500 MG PO HS, TAB 07/25/19 Amlodipine Besylate (Amlodipine Besylate) 10 Mg Tablet, 10 MG PO HS, TAB 07/25/19 Cholecalciferol (Vitamin D3) (Vitamin D3) 1,000 Unit Capsule, 1000 UNIT PO HS, CAP 07/25/19 [place] 3 Polyunsat Fatty Acids (Fish Oil 1,000 mg Capsule) 1,000 Mg Cap, 1000 MG PO HS, CAP 07/25/19 Alclometasone Dipropionate (Alclometasone Dipropionate) 15 Gm Oint...g., TP BID for 14 Days, TUBE APPLY TO AFFECTED AREA 2X DAILY FOR 2 WEEKS START DATE: 07-19-19 END DATE 08-01-19 07/25/19 Spironolactone (Aldactone) 25 Mg Tablet, 25 MG PO DAILY, TAB 07/25/19 Gemfibrozil (Gemfibrozil) 600 Mg Tablet, 600 MG PO BID, TAB 07/25/19 Discontinued Scripts Cefdinir (Cefdinir) 300 Mg Capsule, 300 MG PO BID for 6 Days, #12 CAP Prov:ROVERTO BARCENAS MD 07/27/19 Objective Exam Constitutional: [] HEENT: [] Neck: [No pain with palpation or range of motion] Cardiovascular: [] Respiratory: [] Gastrointestinal: [] Genitourinary: [] Skin: [] Back/Spine: [No pain with palpation] Extremities: [Upper extremitiesfull motion without pain. No deformity. No crepitation. Normal sensation with good capillary refill. Equal pulses. No pain at the elbow, wrist or hand with palpation. Lower extremities. She has pain with range of motion of the right hip as well as with palpation anterior hip. Motion is limited secondary to the fracture right distal femur and the knee immobilizer. I removed her knee immobilizer and she has a moderate effusion. Some mild bruising. Pain with motion. Varus deformity of the knee. Joint line pain at the knee. No calf tenderness and negative Homans. No pain with range of motion and palpation of the ankle. Normal sensation with good cap refill and equal pulses in lower extremities] left lower extremity she has good range of motion hip and ankle without pain. No calf tenderness and negative Homans. Normal sensation with good cap refill equal pulses Neurologic: [] Psychiatric: [] Hematologic/lymphatic/immunologic: [] Vital Signs Vital Signs Date Time Temp Pulse Resp B/P (MAP) Pulse Ox O2 Delivery O2 Flow Rate FiO2 02/20/20 09:20 Room Air 02/20/20 08:00 36.2 71 18 159/51 (87) 98 Room Air 02/20/20 04:59 37.0 78 20 143/60 (87) 97 Room Air 02/19/20 23:56 36.8 75 18 151/65 (93) 96 Room Air 02/19/20 20:26 37.4 68 18 124/47 98 Room Air 02/19/20 20:20 97 Room Air 02/19/20 19:57 36.2 74 18 130/49 (83) 96 Nasal Cannula 2.00 02/19/20 17:34 36.2 76 18 126/62 (83) 96 Room Air I & O 02/20/20 07:00 Intake Total 200 ml Output Total 500 ml Balance -300 ml Lab Results Laboratory Tests 02/19/20 17:35: White Blood Count 15.5H, Red Blood Count 3.62L, Hemoglobin 11.2L, Hematocrit 35, Mean Corpuscular Volume 95, Mean Corpuscular Hemoglobin 31, Mean Corpuscular Hemoglobin Concent 33, Red Cell Distribution Width 14.7H, Platelet Count 267, Mean Platelet Volume 8.8, Neutrophils (%) (Auto) 87H, Lymphocytes (%) (Auto) 7L, Monocytes (%) (Auto) 6, Eosinophils (%) (Auto) 0, Basophils (%) (Auto) 0, Ne utrophils # (Auto) 13.5H, Lymphocytes # (Auto) 1.1, Monocytes # (Auto) 0.9, Eosinophils # (Auto) 0.0, Basophils # (Auto) 0.0, Neutrophils % (Manual) 90, Lymphocytes % (Manual) 3, Monocytes % (Manual) 7, Blood Morphology Comment NORMAL, Sodium Level 141, Potassium Level 2.9L, Chloride Level 104, Carbon Dioxide Level 23, Anion Gap 14, Blood Urea Nitrogen 14, Creatinine 0.84, Estimat Glomerular Filtration Rate > 60, BUN/Creatinine Ratio 17, Glucose Level 159H, Calcium Level 8.9, Corrected Calcium 9.5, Total Bilirubin 0.7, Aspartate Amino Transf (AST/SGOT) 13, Alanine Aminotransferase (ALT/SGPT) 7, Alkaline Phosphatase 65, Total Protein 5.6L, Albumin 3.2 02/19/20 17:43: Urine Color YELLOW, Urine Clarity CLEAR, Urine pH 7.5, Urine Specific [place] 1.015L, Urine Protein NEGATIVE, Urine Glucose (UA) NEGATIVE, Urine Ketones 1+H, Urine Nitrite NEGATIVE, Urine Bilirubin NEGATIVE, Urine Urobilinogen 0.2, Urine Leukocyte Esterase NEGATIVE, Urine RBC (Auto) NEGATIVE, Urine RBC RARE, Urine WBC NONE, Urine Squamous Epithelial Cells NONE, Urine Crystals NONE, Urine Bacteria NEGATIVE, Urine Casts NONE, Urine Mucus NEGATIVE, Urine Culture Indic ated NO 02/19/20 18:05: Procalcitonin 0.04 02/20/20 05:55: Sodium Level 142, Potassium Level 3.7, Chloride Level 106, Carbon Dioxide Level 25, Anion Gap 11, Blood Urea Nitrogen 16, Creatinine 0.80, Estimat Glomerular Filtration Rate > 60, BUN/Creatinine Ratio 20, Glucose Level 126H, Calcium Level 8.9 Imaging X-rays were reviewed from the emergency room dated 02/18. 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 There is some overlap of the head on the neck with shortening and neck that is probably degenerative in nature but could be an impacted subcapital fracture nondisplaced. X-rays of the right knee shows a supracondylar fracture of the right distal femur. There is some impaction. There is varus deformity of the knee which I think is partially from her severe degenerative arthritis of the knee as well as the fracture. There is also some posterior displacement of the fragment on the lateral view and the fragment appears to be in a little bit of flexion. The distal fragment measures approximately 3-1/2 cm. Again there is tricompartment arthritis of the knee with more significant involvement of the medial compartment with significant joint space narrowing and spurring Assessment and Plan Assessment Patient is doing well in the knee immobilizer for the fracture of the right distal femur Problem List Orthopedic problem list includes severe degenerative arthritis right hip, severe degenerative arthritis right knee, mildly displaced supracondylar fracture right distal femur Plan The above was discussed with the patient. Also when I was in the room initially she was talking to her son Juanjose so I spoke with her son. Ricco Oneil talked to Elieser Dalton APRN who saw the patient in the emergency room I was included in the discussion with Elieser who then spoke with family. We talked about surgical and nonsurgical options. Surgically, it would be very difficult to mobilize the fracture with plate and screw fixation or IM rodding due to the length of the distal fragment. With 3.5 cm there is noted just not a lot of fixation that could be achieved and also she has significant degenerative changes and osteoarthritis. Best option surgically may be a distal femoral replacement/total knee. The family has discussed cyst and there concerned about being able to tolerate the procedure such as that with her medical comorbidities and also the rehabilitation to follow. Nonoperative options include mobilization in a knee immobilizer and let it heal in this position and see how she does. She very well may be able to return to limited ambulation with a walker. It's possible that she may never ambulate more than short distances or she may only be able to transfer, once the fracture is healed. It probably will take approximately 12 weeks for this fracture to heal. Again I think the varus deformity or her knee is partially from the fracture and partially from the 3 existing degenerative arthritis with more involvement of the medial compartment. Also with her hip if she does have an impacted subcapital fracture we could treat this nonoperatively as well. I think the changes in her hip or probably degenerative with no fracture involvement. Again the family wants proceed with nonoperative treatment. There concerned about her making it through surgery and the rehabilitation afterwards. So we will proceed with knee immobilization, nonweightbearing right lower extremity. I do not think she is a candidate for rehabilitation and probably a intermediate would be the best place to continue care. From orthopedic point of view she could be discharged or transferred any time. Due to the coronavirus and then make that were dealing with, we could probably just have her x-rayed every 2 weeks and then I could review the x-rays and not have to have the patient come into the office. I certainly can see here in the office in due x-rays here as well. Final Diagonsis Supracondylar fracture right distal femur Severe osteoarthritis right knee Severe osteoarthritis right hip Level of the visit: Level 3 DENNY,NEIL D MD Feb 20, 2020 09:50
--- NOTE | 2020-02-20 10:01 | NUR ---
CM/SS: Visited with pt as to plan for discharge - also talked with son Juanjose on the phone as to plan for pt. Plan: Pt to go to skilled [facility] inspector care facility. Summary: Son Juanjose, reports that pt can not return to [facility] due to right knee fracture. Son has been requested by the facility to talk with medical social worker about [facility]ci and hospice services. [facility] [place], he also reports that pt's physician is Dr. Dennis and he would like for his mother to still see her. Phone call to [facility] - . They have openings. Referral information faxed to them for review. Addendum: 02/20/20 [facility] 1505 [facility] [place] [facility] and she can go there on tomorrow 02-21-2020. She can go skilled or she can go private pay. Son notified of the acceptance, per facility, and asked if he wants for pt to skilled or to go ahead and pay privately. Cost is $2,467 for rest of February, and it will be $5,100 for the month of March. Son determines that he would like to have pt go there skilled to see if pt can get her strength up and maybe some wheelchair training based on her knee. Madhavi Matson [facility] notified of the skilled placement, she will meet with son at 8:30am. This worker will follow up.
[2020-02-20] MEDS: NS IV 1000 ML 1,000 ML IV SCH ×2 (10:14→12:01)
[2020-02-20] MEDS ORDERED: HYDR-83 PO (11:43)
[2020-02-20 12:00] VITALS: BP 129/55
--- NOTE | 2020-02-20 13:20 | NUR ---
Pastoral care visit.
--- NOTE | 2020-02-20 17:00 | NUR ---
1700-BP manual reading of 190/70. Notifed Dr. Cisneros and new orders received at this time for hydralazine 10mg IV Q4 PRN for SBP >160. 1728- 10mg Hydralazine administered at this time.
[2020-02-20] MEDS: RIVAROXABAN 10 MG TABLET (XARELTO) PO SCH (17:08)
[2020-02-20] MEDS ORDERED: hydrALAZINE (APESOLINE) 20 MG/ML VIAL ONE (17:17)
[2020-02-20] MEDS ORDERED: hydrALAZINE (APESOLINE) 20 MG/ML VIAL IV PRN (17:30)
--- NOTE | 2020-02-20 18:43 | History & Physical-Hospitalist ---
History of Present Illness HPI/Chief Complaint Vicky Dempsey is an 84yoF with PMH HTN, HLD, AFib, who presented after an unwitnessed fall at her assisted living facility, [facility]. She is a poor historian. She had been on Keflex for a UTI for the 4 days prior to her fall. She reports right knee pain. She was getting around a bit with a walker, but her mobilization was limited. She denies any fevers or chills. She denies chest pain or shortness of breath. She denies abdominal pain, nausea, vomiting, and diarrhea. She denies dysuria, urgency, and frequency. She has no other complaints or concerns at this time. Source: patient, RN/MD Exam Limitations: no limitations Date Seen 02/20/20 Time Seen by a Provider: 09:00 Attending Physician Hanane Samuels DO PCP No,Local Physician Referring Physician Date of Admission Feb 19, 2020 at 19:28 Home Medications & Allergies Home Medications Reviewed patient Home Medication Reconciliation performed by pharmacy medication reconciliations chemical laboratory technician and/or nursing. Patients Allergies have been reviewed. Allergies Allergies Coded Allergies Penicillins (Verified Allergy, Unknown, 07/25/19) sulfamethoxazole (Verified Allergy, Unknown, 07/25/19) trimethoprim (Verified Allergy, Unknown, 07/25/19) Past Dmoepfw-Uereox-Zygals Hx Past Med/Social Hx: Reviewed Nursing Past Med/Soc Hx Patient Social History Alcohol Use: Denies Use Recreational Drug Use: No Smoking Status: Unknown if Ever Smoked Recent Foreign Travel: No Contact w/other who traveled: No Recent Hopitalizations: Yes (HANK DERAS DR) Recent Infectious Disease Expo: No Seasonal Allergies Seasonal Allergies: No Past Medical History Surgeries: Appendectomy, Gallbladder, Hysterectomy Cardiac: Atrial Fibrillation, High Cholesterol, Hypertension : No Hysterectomy Genitourinary: UTI-Chronic Gastrointestinal: Chronic Constipation Endocrine: Hypothyroidsim HEENT: Macular Degeneration Loss of Vision: Bilateral Hearing Impairment: Denies Psychosocial: Anxiety Family History No Pertinent Family Hx Review of Systems Constitutional: no symptoms reported EENTM: no symptoms reported Respiratory: no symptoms reported Cardiovascular: no symptoms reported Gastrointestinal: no symptoms reported Genitourinary: no symptoms reported Musculoskeletal: joint pain Skin: no symptoms reported Psychiatric/Neurological: No Symptoms Reported Physical Exam Physical Exam Vital Signs Vital Signs - First Documented 02/19/20 02/19/20 17:34 19:57 Temp 36.2 Pulse 76 Resp 18 B/P (MAP) 126/62 (83) Pulse Ox 96 O2 Delivery Room Air O2 Flow Rate 2.00 Capillary Refill : Less Than 3 SecondsLess Than 3 Seconds Height, Weight, BMI Height: '" Weight: 179lbs. 0.6oz. [id number]; 26.85 BMI Method: General Appearance: No Apparent Distress, WD/WN, Chronically ill Neck: Normal Inspection, Supple Respiratory: Lungs Clear, Normal Breath Sounds, No Respiratory Distress Cardiovascular: Regular Rate, Rhythm, Systolic Murmur Gastrointestinal: Normal Bowel Sounds, Non Tender, Soft Extremity: Normal Inspection, Non Tender, Pedal Edema (right greater than left) Neurologic/Psychiatric: Alert, No Motor/Sensory Deficits, Normal Mood/Affect Skin: Normal Color, Warm/Dry Results Results/Procedures Labs Laboratory Tests 02/19/20 17:35 02/20/20 05:55 Patient resulted labs reviewed. Imaging: Reviewed Imaging Report Assessment/Plan Admission Diagnosis Right distal femur fracture Admission Status: Inpatient Order (span 2 midnights) Reason for Inpatient Admission: Femur fracture requiring surgical evaluation Assessment and Plan Right distal femur fracture Ground level fall Advanced age Osteopenia -XR showed right distal femur fracture -Ortho consulted, no surgical intervention planned -Discussion with family led to decision for conservative, non-surgical management -Plan for non-weight bearing right lower extremity with serial XR as an outpatient with in person vs virtual follow ups with Dr. Dubose -Pain regimen ordered, well controlled at this time -SW consulted, appreciate assistance with placement -CT Head without acute intracranial pathology, likely meningioma which has been stable according to family UTI -UA normal -Discontinue Keflex HTN -Continue home meds -Hydralazine as needed AFib -Continue Flecainide and Xarelto Hypothyroidism -Continue levothyroxine GERD -Continue PPI DVT Prophylaxis: already receiving therapeutic anticoagulation Diagnosis/Problems Diagnosis/Problems (1) Right femoral fracture Status: Acute Qualifiers: Encounter type: initial encounter Femur location: unspecified portion of femur Fracture type: closed Fracture morphology: unspecified fracture morphology Qualified Codes: S72.91XA - Unspecified fracture of right femur, initial encounter for closed fracture (2) Atrial fibrillation Status: Chronic Qualifiers: Atrial fibrillation type: unspecified Qualified Codes: I48.91 - Unspecified atrial fibrillation (3) Meningioma Status: Chronic (4) Hypertension Status: Chronic Clinical Quality Measures DVT/VTE Risk/Contraindication: Risk Factor Score Per Nursin RFS Level Per Nursing on Admit: 4+=Very High ROVERTO BARCENAS MD Feb 20, 2020 18:43
[2020-02-20] MEDS ORDERED: ONDANSETRON 4 MG (ZOFRAN) ORAL DISSOLVE TAB PO PRN (18:45)
[2020-02-20] MEDS ORDERED: ANTACID SUSP 30 ML UDC (MYLANTA) PO PRN (18:45)
[2020-02-20] MEDS ORDERED: polyethylene glycoL POWDER 17 GM (MIRALAX) PACK PO PRN (18:45)
[2020-02-20] MEDS ORDERED: ONDANSETRON 4 MG/2 ML (SDV) Z0FRAN IV PRN (18:45)
[2020-02-20] MEDS ORDERED: BISACODYL 10 MG SUPP (DULCOLAX) PR PRN (18:45)
[2020-02-20] MEDS ORDERED: diphenhydrAMINE 25 MG TAB (BENADRYL) PO PRN (18:45)
[2020-02-20] MEDS ORDERED: MELATONIN 3 MG TABLET PO PRN (18:45)
[2020-02-20] MEDS ORDERED: amLODIPine 5 MG (NORVASC) TAB PO SCH (19:00)
[2020-02-20] MEDS: ACETAMINOPHEN 325 MG TABLET PO PRN (19:00)
--- NOTE | 2020-02-20 19:02 | NUR ---
PRN TYLENOL GIVEN AT THIS TIME FOR TEMPERATURE OF 38.0
[2020-02-20 20:13] VITALS: BP 151/60
[2020-02-20] MEDS ORDERED: QUINAPRIL 20 MG (ACCUPRIL) TAB PO SCH (21:00)
[2020-02-20] MEDS: DOCUSATE SODIUM 100 MG (COLACE) CAP PO SCH (21:06)
[2020-02-20] MEDS: SENNOSIDES 8.6 MG (SENOKOT) TAB PO SCH (21:07)
[2020-02-20] MEDS: FLECAINIDE 100 MG (TAMBOCOR) TAB PO SCH (21:37)
[2020-02-20] MEDS: OXYBUTYNIN (DITROPAN) 5 MG TAB PO SCH (21:37)
[2020-02-20] MEDS: lisINopril 20 MG (PRINIVIL) TABLET PO SCH (21:37)
[2020-02-21 00:54] VITALS: BP 131/94
[2020-02-21] MEDS: NS IV 1000 ML 1,000 ML IV SCH (02:14)
[2020-02-21] MEDS: ACETAMINOPHEN 325 MG TABLET PO PRN (02:16)
[2020-02-21 04:22] VITALS: BP 153/89
[2020-02-21] MEDS ORDERED: LEVOTHYROXINE 125 MCG (LEVOTHROID) TABLET PO SCH (06:30)
[2020-02-21] MEDS: KCL 20 MEQ TAB (K-DUR) PO SCH (07:00)
[2020-02-21 07:45] VITALS: BP 147/62
[2020-02-21] MEDS: RIVAROXABAN 10 MG TABLET (XARELTO) PO SCH (08:18)
[2020-02-21] MEDS: FLECAINIDE 100 MG (TAMBOCOR) TAB PO SCH (08:18)
[2020-02-21] MEDS: lisINopril 20 MG (PRINIVIL) TABLET PO SCH (08:18)
[2020-02-21] MEDS: OXYBUTYNIN (DITROPAN) 5 MG TAB PO SCH (08:20)
[2020-02-21] MEDS: SENNOSIDES 8.6 MG (SENOKOT) TAB PO SCH (08:23)
[2020-02-21] MEDS: DOCUSATE SODIUM 100 MG (COLACE) CAP PO SCH (08:23)
[2020-02-21] MEDS ORDERED: PANTOPRAZOLE 40 MG (PROTONIX) TAB PO SCH (09:00)
--- NOTE | 2020-02-21 09:41 | Discharge Summary ---
Discharge Summary Reconcile Patient Problems Problems Reviewed?: Yes Hospital Course Hospital Course Date of Admission: Feb 19, 2020 at 19:28 Admission Diagnosis : Right distal femur fracture Family Physician/Provider: No,Local Physician Date of Discharge: 02/21/20 Discharge Diagnosis: Right distal femur fracture Hospital Course: Vicky Dempsey is an 84-year-old female with past medical history of hypertension, hyperlipidemia, atrial fibrillation, hypothyroidism, GERD, who presented after a ground-level fall and was admitted with a right distal femur fracture. She was evaluated by orthopedic surgery, Dr. Dubose. After reviewing the imaging and her medical comorbidities, a discussion was had with her and her family, and everyone was in agreement that the risks outweighed the benefits in her situation. The plan will be to wear a knee immobilizer with nonwe ightbearing of the right lower extremity for 12 weeks. She will follow-up with x-rays every [address] Dubose. Labs and Pending Lab Test: Home Meds Active Hydrocodone-Acetamin 5-325 mg (Hydrocodone/Acetaminophen) 1 Each Tablet 1 Tab PO Q6H PRN 7 Days Reported Mupirocin 22 Gm Oint...g. 1 Applic TOP TID Cephalexin 500 Mg Capsule 500 Mg PO TID FILLED 02-13-2020 #21/7 DAY SUPPLY Nyamyc (Nystatin) 15 Gm Powder 1 Applic TOP TID APPLY TO VAGINAL/ANAL TISSUE UNTIL HEALED Tylenol Extra Strength (Acetaminophen) 500 Mg Tablet 500 Mg PO HS PRN Proctosol-Hc (Hydrocortisone) 28.35 Gm Cream.appl 1 Applic RC BID PRN Loperamide (Loperamide HCl) 2 Mg Capsule 2 Mg PO QID PRN TAKE 1 CAP NEEDED AFTER EACH LOOSE STOOL TO UP FOUR TIMES DAILY Gavilax (Polyethylene Glycol 3350) 238 Gm Powder 17 Gm PO 1900 Amlodipine Besylate 5 Mg Tablet 5 Mg PO 1900 Vitamin D3 (Cholecalciferol (Vitamin D3)) 10 Mcg Tablet 10 Mcg PO DAILY Stool Softener (Docusate Sodium) 100 Mg Capsule 100 Mg PO DAILY PRN GIVE PER RESIDENT REQUEST Oxybutynin Chloride 5 Mg Tablet 2.5 Mg PO BID TAKES OF A 5MG TABLET TWICE DAILY Protonix (Pantoprazole Sodium) 40 Mg Tablet.dr 40 Mg PO DAILY Vaseline (Petrolatum,White) 18 Ml Jelly.ml. 1 Applic TP BID APPLY TO THE FACE Aspercreme (Lidocaine HCl) 76.5 Gm Cream..g. 1 Gm TP DAILY PRN APPLY TO LOWER BACK AND BILAT KNEES Acetaminophen Extra Strength (Acetaminophen) 500 Mg Tablet 500 Mg PO Q6H PRN Xarelto (Rivaroxaban) 10 Mg Tablet 10 Mg PO DAILY TAKES DAILY AT 1700 Loratadine 10 Mg Tablet 10 Mg PO DAILY PRN Citalopram HBr (Citalopram Hydrobromide) 20 Mg Tablet 20 Mg PO 1900 Calcium Citrate 250 Mg Tablet 500 Mg PO DAILY Flecainide Acetate 100 Mg Tablet 100 Mg PO BID Potassium (Potassium Gluconate) 99 Mg Tablet 99 Mg PO DAILY PRN GIVE POTASSIUM WHEN A DOSE OF FUROSEMIDE IS GIVEN Quinapril HCl 20 Mg Tablet 20 Mg PO BID Furosemide 20 Mg Tablet 20 Mg PO DAILY PRN GIVE POTASSIUM WHEN A DOSE OF FUROSEMIDE IS GIVEN Levothyroxine Sodium 125 Mcg Tablet 125 Mcg PO DAILY Instructions to Patient/Family Assessment/Instructions Take medications as prescribed. Follow up with Dr. Dubose for your femur fracture. Follow Up Appt.: Next skilled nursing rounds Skilled NF Admit to: [facility] ([facility]) I certify that SNF services are required to be given on an inpatient basis because of the above named patient's need for retirement care on a continuing basis for the conditions(s) for which he/she was receiving inpatient hospital services prior to his/her transfer to the SNF. [facility] Facility Order: Nursing Services, [facility] Taper-Evaluate & Treat, Physical Therapy-Evaluate & Treat Oxygen Delivery Method: Room Air Discharge Diet: No Restrictions Daily Activity as Tolerated: No (Non-weightbearing right lower extremity) Resuscitation Status: Do Not Resuscitate Griselda Barcenas Feb 21, 2020 09:29 Pneu Vac Indicated: Yes Discharge Physical Exam General: Alert, Cooperative, No Acute Distress HEENT: Atraumatic, EOMI Lungs: Clear to Auscultation, Normal Air Movement Heart: Regular Rate, Other (Systolic ejection murmur) Abdomen: Normal Bowel Sounds, Soft, No Tenderness Extremities: Other (Edema right greater than left, right knee immobilizer in place) Skin: No Rashes, No Significant Lesion Neuro: Normal Speech Psych/Mental Status: Mood NL, Other (Oriented to person, place, and situation) GRISELDA BARCENAS MD Feb 21, 2020 09:41
--- NOTE | 2020-02-21 11:00 | NUR ---
REPORT CALLED TO VENITA VAZ AT [facility]
--- NOTE | 2020-02-21 11:40 | NUR ---
CM/SS: [facility] can take the pt and will tack picker at 11am today. Plan: Pt will go to [facility] today for skilled stay. Summary: Pt has been at [facility] and cannot return there based on her right knee fracture. Pt will be going to [facility] today at 11:00am Call from Sharron Matson she has met with the family at 8:30am this morning and all the paperwork is completed for pt. They will tack picker pt at 11:00am.
[2020-02-21 11:45] VITALS: BP 147/62
--- NOTE | 2020-02-21 11:45 | NUR ---
TATE STEPHEN demonstrates understanding of discharge instructions and accurately returns instructions upon questioning. Copy of Post-Discharge Instructions given to PT. TATE STEPHEN is able to manage continuing needs after discharge. Patients belongings returned to PT. Patient discharged from [facility] on02/20[facility]19 at 1145 . TATE STEPHEN left floor via W/C, accompanied by [facility] [employer] [employer].
--- NOTE | 2020-02-24 10:27 | Physician Query Clarification ---
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 Dubose, you could try plating this but her bones are osteopenic enough that they may not hold a screw. Treatment: conservative treatment, skilled services at [facility] Question: Can you further specify supracondylar fx rt femur per the clinical in dicators above? Please document a response in the Progress Notes or Discharge Summary. 1. supracondylar fx rt femur, pathological d/t osteoporosis 2. supracondylar fx rt femur, traumatic 3. Other, with explanation of the clinical findings. 4. Clinically undetermined, no explanation for the clinical findings. PHYSICIAN RESPONSE Can you specify per above: 1 Please remember a lack of response to the above will prompt a phone page by CDI/Coding staff. In responding to this query, please exercise your independent professional judgment. The purpose of this communication is to more accurately reflect the complexity of your patients condition. The fact that a question is asked does not imply that any particular answer is desired or expected. Thank you for your timely response to this clarification. Requestors name: Evette THIS PHYSICIAN QUERY FORM IS A PERMANENT PART OF THE MEDICAL RECORD EVETTE JENKINS Feb 24, 2020 10:27 ROVERTO BARCENAS MD Mar 01, 2020 19:55
== END 2020-02-21 11:45 | DRG 543 ==
LOC: EDUNIT# 17:32 → ER 17:33 → 4TH 19:28
PROVIDERS: ADMIT Internal Medicine; ATTEND Internal Medicine
DX: M84.451A Pathological fracture, right femur, initial encounter for fracture (principal); N39.0 Urinary tract infection, site not specified; M16.11 Unilateral primary osteoarthritis, right hip; M17.11 Unilateral primary osteoarthritis, right knee; M85.80 Other specified disorders of bone density and structure, unspecified site; I48.91 Unspecified atrial fibrillation; E03.9 Hypothyroidism, unspecified; I10 Essential (primary) hypertension; E78.5 Hyperlipidemia, unspecified; Z66 Do not resuscitate; R41.82 Altered mental status, unspecified; K59.09 Other constipation; K21.9 Gastro-esophageal reflux disease without esophagitis; H35.30 Unspecified macular degeneration; F41.9 Anxiety disorder, unspecified; R54 Age-related physical debility; D32.9 Benign neoplasm of meninges, unspecified; W19.XXXA Unspecified fall, initial encounter; Y92.129 Unspecified place in nursing home as the place of occurrence of the external cause; Z79.01 Long term (current) use of anticoagulants
CPT/HCPCS: 36415; 51701; 70450; 71045; 72125; 73562; 80048; 80053; 81000; 84145; 85007; 85027; 96374; 96376

== ENCOUNTER → 2020-05-13 | Outpatient (CLI) | payer MEDICARE ==
[~2020-05-13] MED LIST changes: +ACET-168 PO; +ACET-2267 PO; +AMLO5TAB9 PO; +CEPH500C PO; +CHOL400T PO; +DOCU-238 PO; +HYDR-83 PO; +HYDR28.341 RC; +LIDO76.5 TP; +LOPE2CAP PO; +MUPI22OI2 TOP; +NYST15PO2 TOP; +OXYB5TAB13 PO; +PANT40TA2 PO; +PETR18JE3 TP; +POLY238P10 PO; +RIVA10TA PO
--- NOTE | 2020-05-13 10:10 | Diagnostic Imaging Report ---
INDICATION: Fracture, follow-up TECHNIQUE: 3 views of the right knee CORRELATION STUDY: 02/19/2020 FINDINGS: Rather significantly impacted distal femur fracture is again demonstrated. The severity of the impaction appears slightly increased. There is some reparative callus formation suggested. However, fracture lines are still present. No definitive evidence for an acute fracture. There is also deformity about the proximal tibia appears unchanged. Marked joint space narrowing particularly medially as well as the patellofemoral compartment. Prominent vascular calcification. IMPRESSION: 1. Rather significantly impacted distal right femur fracture again demonstrated. Severity of the impaction appears slightly increased. Definitive acute fractures not otherwise suggested. There is some reparative callus formation noted with fracture line, however, still present. Dictated by: Dictated on workstation # [id number]
--- NOTE | 2020-05-13 11:28 | Diagnostic Imaging Report ---
EXAMINATION: Right knee, 3 views. INDICATION: Follow-up of distal femur fracture. COMPARISON: Multiple priors, most recent performed earlier same day. FINDINGS: Again demonstrated is a comminuted markedly impacted distal femur fracture, with posterior displacement of the distal fracture fragment. There is marked periosteal reaction denoting progressive healing compared to exam performed on 02/19/2020. There has been no significant change from exam performed earlier today. No new fracture or acute osseous abnormality is identified. There is persistent edema in the knee soft tissues. Vascular calcifications are noted. IMPRESSION: Impacted fracture of the distal femur, with progressive healing noted compared to exam performed on 02/19/2020. No change from exam performed earlier today. Dictated by: Dictated on workstation # [id number]
--- NOTE | 2020-05-13 11:38 | Diagnostic Imaging Report ---
INDICATION: Distal femur fracture. TIME OF EXAM: 10:38 AM 2 views right hip were obtained. FINDINGS: There are severe osteoarthritic changes of the right hip. There is complete loss of the medial and superior joint space. There is sclerosis and subchondral cyst formation of the femoral head. Femoral neck is somewhat limited in evaluation due to rotation. No definite fracture is seen. A right-sided rami appear to be intact. IMPRESSION: Severe right hip degenerative change. No acute fracture is detected. Dictated by: Dictated on workstation # [id number]
== END ==
LOC: ORTHO 08:47
PROVIDERS: ATTEND Orthopaedic Surgery
DX: S72.451D Displaced supracondylar fracture without intracondylar extension of lower end of right femur, subsequent encounter for closed fracture with routine healing (principal); M16.11 Unilateral primary osteoarthritis, right hip
CPT/HCPCS: 73502; 73562

== ENCOUNTER 2020-06-02 08:45 | Emergency (ER) | payer MEDICARE ==
[~2020-06-02] VITALS: Ht 63 cm; Wt 160.0 kg
[~2020-06-02 08:45] MED LIST changes: +HYDR-3812 PO; -HYDR-83 PO
--- NOTE | 2020-06-02 08:56 | ED Fall/Injury ---
General Stated Complaint: DECREASED LOC Source: EMS Exam Limitations: clinical condition History of Present Illness Date Seen by Provider: Jun 02, 2020 Time Seen by Provider: 08:56 Initial Comments 84-year-old female brought in by EMS. EMS was called to the assisted due to her change in mentation patient had a fall last night out of her wheelchair to t he side. They report that she is normally up alert and active. She is more lethargic and nonresponsive this morning. She does have an contusion/abrasion on her forehead. She has some pain with palpation right hip and knee. They do report previous injury Unsure If This Is New. Patient Did Not Provide Any Information. The Patient Minimally Follows Any Commands. She Is on xarelto for chronic atrial fib Allergies and Home Medications Allergies Coded Allergies: Penicillins (Verified Allergy, Unknown, 07/25/19) sulfamethoxazole (Verified Allergy, Unknown, 07/25/19) trimethoprim (Verified Allergy, Unknown, 07/25/19) Home Medications Acetaminophen 500 Mg Tablet, 500 MG PO Q6H PRN for PAIN-MILD (1-4), (Reported) Acetaminophen 500 Mg Tablet, 500 MG PO HS PRN for PAIN-MILD (1-4), (Reported) Amlodipine Besylate 5 Mg Tablet, 5 MG PO 1900, (Reported) Calcium Citrate 250 Mg Tablet, 500 MG PO DAILY, (Reported) Cholecalciferol (Vitamin D3) 10 Mcg Tablet, 10 MCG PO DAILY, (Reported) Citalopram Hydrobromide 20 Mg Tablet, 20 MG PO 1900, (Reported) Docusate Sodium 100 Mg Capsule, 100 MG PO DAILY PRN for CONSTIPATION-1ST LINE, (Reported) GIVE PER RESIDENT REQUEST Flecainide Acetate 100 Mg Tablet, 100 MG PO BID, (Reported) Furosemide 20 Mg Tablet, 20 MG PO DAILY PRN for EDEMA, (Reported) GIVE POTASSIUM WHEN A DOSE OF FUROSEMIDE IS GIVEN Hydrocodone/Acetaminophen 1 Each Tablet, 1 TAB PO Q6H PRN for PAIN-MODERATE (5- 7) Prescribed by: ROVERTO BARCENAS on 02/20/20 1143 Hydrocortisone 28.35 Gm Cream.appl, 1 APPLIC RC BID PRN for HEMMORRHOID DISCOMFORT, (Reported) Levothyroxine Sodium 125 Mcg Tablet, 125 MCG PO DAILY, (Reported) Lidocaine HCl 76.5 Gm Cream..g., 1 GM TP DAILY PRN, (Reported) APPLY TO LOWER BACK AND BILAT KNEES Loperamide HCl 2 Mg Capsule, 2 MG PO QID PRN for LOOSE STOOLS, (Reported) TAKE 1 CAP NEEDED AFTER EACH LOOSE STOOL TO UP FOUR TIMES DAILY Loratadine 10 Mg Tablet, 10 MG PO DAILY PRN for ALLERGIES, (Reported) Mupirocin 22 Gm Oint...g., 1 APPLIC TOP TID, (Reported) Nystatin 15 Gm Powder, 1 APPLIC TOP TID, (Reported) APPLY TO VAGINAL/ANAL TISSUE UNTIL HEALED Oxybutynin Chloride 5 Mg Tablet, 2.5 MG PO BID, (Reported) TAKES OF A 5MG TABLET TWICE DAILY Pantoprazole Sodium 40 Mg Tablet.dr, 40 MG PO DAILY, (Reported) Petrolatum,White 18 Ml Jelly.ml., 1 APPLIC TP BID, (Reported) APPLY TO THE FACE Polyethylene Glycol 3350 238 Gm Powder, 17 GM PO 1900, (Reported) Potassium Gluconate 99 Mg Tablet, 99 MG PO DAILY PRN for WHEN LASIX IS GIVEN, (Reported) GIVE POTASSIUM WHEN A DOSE OF FUROSEMIDE IS GIVEN Quinapril HCl 20 Mg Tablet, 20 MG PO BID, (Reported) Rivaroxaban 10 Mg Tablet, 10 MG PO DAILY, (Reported) TAKES DAILY AT 1700 Patient Home Medication List Home Medication List Reviewed: Yes Review of Systems Review of Systems Constitutional: see HPI Psychiatric/Neurological: See HPI Review of symptoms limited based on patient's physical condition Past Gsejmbm-Gckuqt-Mntbmr Hx Past Med/Social Hx: Reviewed Nursing Past Med/Soc Hx Patient Social History Recent Hopitalizations: Yes (HANK DERAS DR) Seasonal Allergies Seasonal Allergies: No Past Medical History Surgeries: Yes Appendectomy, Gallbladder, Hysterectomy Respiratory: No Cardiac: Yes Atrial Fibrillation, High Cholesterol, Hypertension Neurological: No 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 0.6oz. 81.656199ti; 26.85 BMI Method: General Appearance: mild distress, other (minimally responsive to questions will answer to couple questions but not appropriate, patient discussed stairs ahead) HEENT: other (contusion frontal scalp) Neck: full range of motion, supple Cardiovascular: normal peripheral pulses, regular rate, rhythm Respiratory: lungs clear, normal breath sounds, no respiratory distress Gastrointestinal: non tender, soft Pelvic: other (mild tenderness right hip) Extremities: other (tenderness and swelling to right knee) Neurologic/Psychiatric: other (patient does not answer questions appropriately, does not follow commands but does not have any focal deficits noted) Skin: ecchymosis (scalp) Progress/Results/Core Measures Results/Orders Lab Results Laboratory Tests Test 06/02/20 08:45 06/02/20 09:25 Range/Units White Blood Count 10.5 4.3-11.0 10^3/uL Red Blood Count 4.16 L 4.35-5.85 10^6/uL Hemoglobin 12.5 11.5-16.0 G/DL Hematocrit 39 35-52 % Mean Corpuscular Volume 93 80-99 FL Mean Corpuscular Hemoglobin 30 25-34 PG Mean Corpuscular Hemoglobin Concent 33 32-36 G/DL Red Cell Distribution Width 16.8 H 10.0-14.5 % Platelet Count 373 130-400 10^3/uL Mean Platelet Volume 9.9 7.4-10.4 FL Sodium Level 139 135-145 MMOL/L Potassium Level 5.0 3.6-5.0 MMOL/L Chloride Level 104 98-107 MMOL/L Carbon Dioxide Level 22 21-32 MMOL/L Anion Gap 13 5-14 MMOL/L Blood Urea Nitrogen 13 7-18 MG/DL Creatinine 1.03 0.60-1.30 MG/DL Estimat Glomerular Filtration Rate 51 BUN/Creatinine Ratio 13 Glucose Level 154 H 70-105 MG/DL Calcium Level 9.3 8.5-10.1 MG/DL Corrected Calcium 10.0 8.5-10.1 MG/DL Total Bilirubin 1.1 H 0.1-1.0 MG/DL Aspartate Amino Transf (AST/SGOT) 26 5-34 U/L Alanine Aminotransferase (ALT/SGPT) 10 0-55 U/L Alkaline Phosphatase 99 40-136 U/L Total Protein 6.8 6.4-8.2 GM/DL Albumin 3.1 L 3.2-4.5 GM/DL Urine Color YELLOW Urine Clarity SL CLOUDY Urine pH 7.0 5-9 Urine Specific [place] 1.015 L 1.016-1.022 Urine Protein TRACE H NEGATIVE Urine Glucose (UA) NEGATIVE NEGATIVE Urine Ketones NEGATIVE NEGATIVE Urine Nitrite NEGATIVE NEGATIVE Urine Bilirubin NEGATIVE NEGATIVE Urine Urobilinogen 1.0 < = 1.0 MG/DL Urine Leukocyte Esterase NEGATIVE NEGATIVE Urine RBC (Auto) NEGATIVE NEGATIVE Urine RBC RARE /HPF Urine WBC RARE /HPF Urine Squamous Epithelial Cells 5-10 /HPF Urine Crystals PRESENT H /LPF Urine Amorphous Sediment RARE NITIN PHOSPHATE H /LPF Urine Bacteria NEGATIVE /HPF Urine Casts PRESENT /LPF Urine Hyaline Casts 5-10 H /LPF Urine Mucus NEGATIVE /LPF Urine Culture Indicated NO My Orders Orders - WILD,NADINE L DO Chest 1 View, Ap/Pa Only (06/02/20 08:56) Knee, Right, 3 Views (06/02/20 08:56) Hip, Right, 2 Views (06/02/20 08:56) Cbc No Diff (06/02/20 08:56) Comprehensive Metabolic Panel (06/02/20 08:56) Ua Culture If Indicated (06/02/20 08:56) Ct Head/Cervical Spine Wo (06/02/20 08:56) Vital Signs/I&O 06/02/20 06/02/20 08:45 13:59 Temp 36.4 36.4 Pulse 61 61 Resp 16 16 B/P (MAP) 115/56 (75) 115/56 (75) Pulse Ox 100 100 O2 Delivery Nasal Cannula Progress Progress Note : Time: 11:51 Progress Note Patient with no acute findings on lab, x-ray or CT. I called and discussed with patient's primary care provider Dr. Dennis. After discussing with the family we are going to allow patient to return back to the assisted where they are going to start arrangingfor hospice care. Patient is stable upon discharge back. Departure Impression Primary Impression: Fall from wheelchair Qualified Codes: W05.0XXA - Fall from non-moving wheelchair, initial encounter Additional Impression: Confusion Disposition: 01 HOME, SELF-CARE Condition: Stable Departure-Patient Inst. Referrals: NO,LOCAL PHYSICIAN (PCP/Family) Primary Care Physician Add. Discharge Instructions: Follow-up with Dr. Dennis as needed NADINE IWLD DO Jun 02, 2020 08:56
[2020-06-02 09:02] LABS: HEMOGLOBIN 12.5 G/DL (11.5-16.0); MEAN PLATELET VOLUME 9.9 FL (7.4-10.4); RED CELL DISTRIBUTION WIDTH 16.8 % (10.0-14.5); WHITE BLOOD COUNT 10.5 10^3/uL (4.3-11.0)
[2020-06-02 09:17] LABS: ALBUMIN 3.1 GM/DL (3.2-4.5)
[2020-06-02 09:19] LABS: CALCIUM 9.3 MG/DL (8.5-10.1)
[2020-06-02 09:20] LABS: TOTAL PROTEIN 6.8 GM/DL (6.4-8.2)
[2020-06-02 09:22] LABS: BILIRUBIN,TOTAL 1.1 MG/DL (0.1-1.0)
[2020-06-02 09:24] LABS: CREATININE SERUM 1.03 MG/DL (0.60-1.30)
[2020-06-02 09:35] LABS: BILIRUBIN,URINE NEGATIVE (NEGATIVE); CLARITY,URINE SL CLOUDY; COLOR,URINE YELLOW; GLUCOSE, URINE (UA) NEGATIVE (NEGATIVE); KETONES,URINE NEGATIVE (NEGATIVE); LEUKOCYTE ESTERASE ,URINE NEGATIVE (NEGATIVE); NITRITE,URINE NEGATIVE (NEGATIVE); PROTEIN,URINE TRACE (NEGATIVE)
--- OUTSIDE RECORDS SUMMARY | 2020-06-02 09:36 | XMS REPORT | Continuity of Care Document ---
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 [facility] 01/03/2020 W M25.561 Ch ronic pain of right knee [facility] 01/03/2020 W M53.3 Sacr oiliac joint dysfunction of right side [facility] 01/03/2020 W E03.4 Atro phy of thyroid (acquired) [facility] 01/03/2020 W E78.2 Mixe d hyperlipidemia [facility] 01/03/2020 W F33.1 Gayla r depressive disorder, recurrent, moderate Je[facility], [facility] 01/03/2020 W I10 Essent ial (primary) hypertension Jeannie, [facility] 01/03/2020 W L01.00 Imp etigo Jeannie, [facility] 01/03/2020 W L57.0 Acti jc keratosis Jeannie, [facility] 01/03/2020 W N30.01 Acu te cystitis with hematuria [facility] 01/10/2020 W E03.4 Atro phy of thyroid (acquired) [place], Happy 01/10/2020 W I10 Essent ial (primary) hypertension Jeannie Happy 01/10/2020 W 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 Jeannie Happy 02/04/2020 W K59.01 Slo w transit constipation Genao, [facility] 02/04/2020 W R14.1 Abdo dennys gas pain [facility] 02/13/2020 W B37.3 [facility] L01.00 Imp etigo Jeannie, Happy 02/13/2020 W K59.01 Slo w transit constipation Genao, Aide 02/13/2020 W R14.1 Abdo dennys gas pain Genao, Aide 02/14/2020 W K59.01 Slo w transit constipation [place], Aide 02/14/2020 W R14.1 Abdo dennys gas pain [facility] 02/20/2020 ORTEGA DO, ZHEN Ot D32.9 BENIGN NEOPLASM OF MENINGES, UNSPECIFIED 02/20/2020 ORTEGA DO, ZHEN Ot E03.9 HYPOTHYROIDISM, UNSPECIFIED 02/20/2020 ORTEGA DO, ZHEN Ot E78.00 PURE HYPERCHOLESTEROLEMIA, UNSPECIFIED 02/20/2020 ORTEGA DO, ZHEN Ot F41.9 ANXIETY DISORDER, UNSPECIFIED 02/20/2020 ORTEGA DO, ZHEN Ot H35.30 UNSPECIFIED MACULAR DEGENERATION 02/20/2020 ORTEGA DO, ZHEN Ot I10 ESSENTIAL (PRIMARY) HYPERTENSION 02/20/2020 ORTEGA DO, ZHEN Ot I48.91 UNSPECIFIED ATRIAL FIBRILLATION 02/20/2020 ORTEGA DO, ZHEN Ot K59.09 OTHER CONSTIPATION 02/20/2020 ORTEGA DO, ZHEN Ot M85.80 OTH DISRD OF BONE DENSITY AND STRUCTURE, 02/20/2020 ORTEGA DO, ZHEN Ot N39.0 URINARY TRACT INFECTION, SITE NOT SPECIF 02/20/2020 ORTEGA DO, ZHEN Ot R41.82 ALTERED MENTAL STATUS, UNSPECIFIED 02/20/2020 ORTEGA DO, ZHEN Ot R54 AGE- RELATED PHYSICAL DEBILITY 02/20/2020 ORTEGA DO, ZHEN Ot S72.40 1A UNSP FRACTURE OF LOWER END OF RIGHT FEMU 02/20/2020 ORTEGA DO, ZHEN Ot W19.XX XA UNSPECIFIED FALL, INITIAL ENCOUNTER 02/20/2020 ORTEGA DO, ZHEN Ot Y92.[address] ASSISTED PLACE 02/20/2020 ORTEGA DO, ZHEN Ot Z66 DO NOT RESUSCITATE 02/20/2020 ORTEGA DO, ZHEN Ot Z79.01 SHELTER (CURRENT) USE OF ANTICOAGULANT 02/21/2020 ORTEGA DO, ZHEN Ot D32.9 BENIGN NEOPLASM OF MENINGES, UNSPECIFIED 02/21/2020 ORTEGA DO, ZHEN Ot E03.9 HYPOTHYROIDISM, UNSPECIFIED 02/21/2020 ORTEGA DO, ZHEN Ot E78.00 PURE HYPERCHOLESTEROLEMIA, UNSPECIFIED 02/21/2020 ORTEGA DO, ZHEN Ot E78.5 HYPERLIPIDEMIA, UNSPECIFIED 02/21/2020 ORTEGA DO, ZHEN Ot F41.9 ANXIETY DISORDER, UNSPECIFIED 02/21/2020 ORTEGA DO, ZHEN Ot H35.30 UNSPECIFIED MACULAR DEGENERATION 02/21/2020 ORTEGA DO, ZHEN Ot I10 ESSENTIAL (PRIMARY) HYPERTENSION 02/21/2020 ORTEGA DO, ZHEN Ot I48.91 UNSPECIFIED ATRIAL FIBRILLATION 02/21/2020 ORTEGA DO, ZHEN Ot K21.9 GASTRO-ESOPHAGEAL REFLUX DISEASE WITHOUT 02/21/2020 ORTEGA DO, ZHEN Ot K59.09 OTHER CONSTIPATION 02/21/2020 ORTEGA DO, ZHEN Ot M16.11 UNILATERAL PRIMARY OSTEOARTHRITIS, RIGHT 02/21/2020 ORTEGA DO, ZHEN Ot M17.11 UNILATERAL PRIMARY OSTEOARTHRITIS, RIGHT 02/21/2020 ORTEGA DO, ZHEN Ot M84.45 1A PATHOLOGICAL FRACTURE, RIGHT FEMUR, INIT 02/21/2020 ORTEGA DO, ZHEN Ot M85.80 OT DISRD OF BONE DENSITY AND STRUCTURE, 02/21/2020 ORTEGA DO, ZHEN Ot N39.0 URINARY TRACT INFECTION, SITE NOT SPECIF 02/21/2020 SHANNON CORONA ZHEN Ot R41.82 ALTERED MENTAL STATUS, UNSPECIFIED 02/21/2020 SHANNON CORONA ZHEN Ot R54 AGE- RELATED PHYSICAL DEBILITY 02/21/2020 SHANNON CORONA ZHEN Ot S72.40 1A UNSP FRACTURE OF LOWER END OF RIGHT FEMU 02/21/2020 ORTEGA DO ZHEN Ot S72.45 1A DISPL SUPRCNDL FX W/O INTRCNDL EXTN LOWE 02/21/2020 SHANNON CORONA ZHEN Ot W19.XX XA UNSPECIFIED FALL, INITIAL ENCOUNTER 02/21/2020 SHANNON CORONAELMOI Ot Y92.[address] ASSISTED PLACE 02/21/2020 ELMO ORTEGA DOI Ot Z66 DO NOT RESUSCITATE 02/21/2020 SHANNON CORONA ZHEN Ot Z79.01 SHELTER (CURRENT) USE OF ANTICOAGULANT 05/06/2020 W F33.1 Gayla r depressive disorder, recurrent, moderate [place] 05/06/2020 W I10 Essent ial (primary) hypertension Char Dennis 05/15/2020 NEIL BALDWIN MD Ot M16. 11 UNILATERAL PRIMARY OSTEOARTHRITIS, RIGHT 05/15/2020 NEIL BALDWIN MD Ot S72.451D DISPL SUPRCNDL FX W/O INTRCNDL EXTN LOW 05/25/2020 W I10 Essent ial (primary) hypertension Niurka Ortiz 05/28/2020 W I10 Essent ial (primary) hypertension Niurka Ortiz Procedures There is no data. Results Test [...] SEE COMMENTS NRG QUANTITY OF GROWTH Isolated NR Bacterial blood culture [id number] [facility] Complete urinalysis with reflex to cultu re [...] culture - 07/25/19 10:19 Bacterial urine culture [id number] NRG COLONY COUNT >100,000/ML NRG FTX;REPORTABLE SUSCEPTIBILITY [...] 02/19/20 18:05 PROCALCITONIN (PCT) 0.04 ng/mL <0.10 Whole blood basic metabolic panel - 02/04 04/25 05:55 Serum or plasma sodium measurement (moles/volume) 142 mmol/L 135-145 Serum or plasma potassium measurement (moles/volume) 3.7 mmol/L 3.6-5.0 Serum or plasma chloride measurement (moles/volume) 106 mmol/L 98-107 Carbon dioxide 25 mmol/L 21-32 Serum or plasma anion gap determination (moles/volume) 11 mmol/L 5-14 Serum or plasma urea nitrogen measurement (mass/volume ) 16 mg/dL 7-18 Serum or plasma creatinine measurement (mass/volume) 0.80 mg/dL 0.60-1.30 Serum or plasma urea nitrogen/creatinine mass ratio 20 NRG Serum or plasma creatinine measurement w ith calculation of estimated glomerular filtration rate > NRG Serum or plasma glucose measurement (mass/volume) 126 mg/dL 70-105 Serum or plasma calcium measurement (mass/volume) 8.9 mg/dL 8.5-10.1 Encounters ACCT No. Visit Date/Time Discharge Status Pt. Type Provider Facility Loc./Unit Complaint [id number] 11/28/2019 14:01:04 11/28/2019 23:59:5 9 CLS Outpatient [id number] 05/13/2020 08:47:00 23:59:59 CLS Outpatient DENNY PAIGE, NEIL Meier [facility] ORTHO [id number] 02/19/2020 19:28:00 11:45:00 DIS Inpatient SHANNON CORONA, ZHEN Tafoya ia [facility] 4TH HYPOKALEMIA, RT KNEE FR ACTURE [id number] 09/02/2019 08:45:00 23:59:59 CLS Preadmit ALYSSA PAIGE, SCOT Conner [facility] CARD PAF,MIXED HYPERLIPIDEMI A,HTN [id number] 07/25/2019 13:14:00 09:43:00 DIS Inpatient SWAPNA PAIGE, ROVERTO Fallon [facility] 4TH UTI SEPSIS
[2020-06-02 09:48] LABS: BACTERIA,URINE NEGATIVE /HPF; RBC,URINE RARE /HPF; WBC,URINE RARE /HPF
[2020-06-02 09:49] LABS: AMORPHOUS SEDIMENT,UR RARE AMOR PHOSPHATE /LPF
--- NOTE | 2020-06-02 10:05 | Diagnostic Imaging Report ---
Clinical indications: Patient status post fall. Patient has hematoma to forehead. Exam: Head CT without IV contrast. Axial CT scan of the cervical spine with sagittal and coronal reformations. Auto Exposure Controls were utilized during the CT exam to meet ALARA standards for radiation dose reduction. Comparison: Head CT and cervical spine CT scan without contrast dated 02/19/2020. Findings: Head CT: There is no evidence of acute cerebral infarct, intracranial hemorrhage, or interval gross mass effect. Stable partially calcified rounded mass in the midline anterior skull base region which is between both frontal lobes. This suspected to represent a partially calcified meningioma. There are stable diffuse severe patchy confluent low-attenuation white matter changes seen throughout both cerebral hemispheres, likely representing chronic small vessel ischemic disease and leukoaraiosis. There is no hydrocephalus, brain herniation or midline shift. Basal cisterns are unremarkable. There is interval development of extra cranial soft tissue swelling involving the left of midline frontal region. There is no skull fracture seen. There is moderate amount of mucosal thickening and secretions in the sphenoid sinus which has progressed. There is interval development of a large amounts of fluid in the right mastoid air cells and right middle ear region. Cervical spine: There is no interval acute cervical spine fracture. There are stable degenerative grade 1 anterolisthesis of T1 on T2. There is subtle degenerative grade 1 anterolisthesis of C2 on C3 and C3 on C4 which is more evident on today's exam and likely due to patient being in a more extended positioned on this exam compared to a flexed position on the prior study. Stable hypertrophic spurs and facet arthropathy. There is no significant neck soft tissue abnormality. Visualized upper lung carrillo are clear. Impression: 1: There is no evidence of acute intracranial process, intracranial hemorrhage, or skull fracture. There is a small amount of extra cranial swelling in the left frontal region. 2: Stable cervical spine degenerative disease with no interval acute fracture. 3: Stable 3.1 cm partially calcified dural based mass in the midline anterior skull base region suspected to represent a meningioma. Dictated by: Dictated on workstation # [id number]
--- NOTE | 2020-06-02 10:18 | Diagnostic Imaging Report ---
INDICATION: Fall. COMPARISON: 02/19/2020. FINDINGS: There is cardiomegaly. There has been development of a small left basilar pleural effusion. There is no evidence of pulmonary edema. The right lung is clear with a sharp costophrenic angle. The aorta is atherosclerotic with mild ectasia. IMPRESSION: Cardiomegaly. There has been development of a small left basilar pleural effusion. Dictated by: Dictated on workstation # [id number]
--- NOTE | 2020-06-02 10:19 | Diagnostic Imaging Report ---
INDICATION: Hip pain. COMPARISON: 05/13/2020. FINDINGS: There are profound osteoarthritic changes to the right hip with articular sclerosis, osteophytes, and subcortical cysts. There is likely underlying chronic bony demineralization with no appreciable hip fracture deformity. There are extensive atherosclerotic vascular calcifications. IMPRESSION: Stable chronic findings. Dictated by: Dictated on workstation # [id number]
--- NOTE | 2020-06-02 10:25 | Diagnostic Imaging Report ---
INDICATION: Distal femur fracture. COMPARISON: 05/13/2020. FINDINGS: There has been interval progressive bony callus and periosteal reaction about the impacted distal femur fracture. There is anterior angulation at the fracture apex which projects just posterior to the intact patella on the lateral view. The alignment is stable. The fracture lucencies in the lateral radiograph remain visualized. IMPRESSION: There is some increased new bone formation but the fracture line remains visualized. There is mild anterior angulation, stable. No adverse interval development from the comparison. Dictated by: Dictated on workstation # [id number]
[2020-06-02 13:59] VITALS: BP 115/56
== END 2020-06-02 14:00 | disposition home or self-care (01) ==
LOC: EDUNIT# 08:45 → ER 08:46
DX: S00.03XA Contusion of scalp, initial encounter (principal); R41.0 Disorientation, unspecified; M25.551 Pain in right hip; M25.561 Pain in right knee; I48.20 Chronic atrial fibrillation, unspecified; I10 Essential (primary) hypertension; E03.9 Hypothyroidism, unspecified; K59.09 Other constipation; F41.9 Anxiety disorder, unspecified; Z79.01 Long term (current) use of anticoagulants; Z88.0 Allergy status to penicillin; Z79.890 Hormone replacement therapy; Z88.2 Allergy status to sulfonamides; Z88.1 Allergy status to other antibiotic agents; W05.0XXA Fall from non-moving wheelchair, initial encounter
CPT/HCPCS: 36415; 70450; 71045; 72125; 73502; 73562; 80053; 81000; 85027

== ENCOUNTER 2021-04-09 13:30 | Inpatient (IN) | payer MEDICARE, MEDICAID ==
[~2021-04-09] VITALS: Ht 162.6 cm; Wt 87.6 kg
[~2021-04-09 13:30] MED LIST changes: +ACHD5005 PO; +AMLO-250 PO; +AMLO-251 PO; -AMLO10TA7 PO; -AMLO5TAB9 PO; -DOCU-238 PO; +DOCU-241 PO; -GEMF600T8 PO; +GEMF600T88 PO; -HYDR-3812 PO
--- NOTE | 2021-04-09 13:39 | ED General ---
General Stated Complaint: SWELLING/SOB Source of Information: Patient Exam Limitations: No Limitations History of Present Illness Date Seen by Provider: Apr 09, 2021 Time Seen by Provider: 13:36 Initial Comments to ER with swelling and shortness of breath. She has gained about 13 pounds in 2 days and was found to be hypoxic by senior care staff. She is on hospice with [facility], she has Alzheimer's and CHF. They called the ambulance for shortness of breath Timing/Duration: 1-2 Days Severity: Moderate Associated Systoms: Denies Symptoms Allergies and Home Medications Allergies Coded Allergies: Penicillins (Verified Allergy, Unknown, 07/25/19) sulfamethoxazole (Verified Allergy, Unknown, 07/25/19) trimethoprim (Verified Allergy, Unknown, 07/25/19) Home Medications Acetaminophen 500 Mg Tablet, 500 MG PO Q6H PRN for PAIN-MILD (1-4), (Reported) Acetaminophen 500 Mg Tablet, 500 MG PO HS PRN for PAIN-MILD (1-4), (Reported) Amlodipine Besylate 5 Mg Tablet, 5 MG PO 1900, (Reported) Calcium Citrate 250 Mg Tablet, 500 MG PO DAILY, (Reported) Cholecalciferol (Vitamin D3) 10 Mcg Tablet, 10 MCG PO DAILY, (Reported) Citalopram Hydrobromide 20 Mg Tablet, 20 MG PO 1900, (Reported) Docusate Sodium 100 Mg Capsule, 100 MG PO DAILY PRN for CONSTIPATION-1ST LINE, (Reported) GIVE PER RESIDENT REQUEST Flecainide Acetate 100 Mg Tablet, 100 MG PO BID, (Reported) Furosemide 20 Mg Tablet, 20 MG PO DAILY PRN for EDEMA, (Reported) GIVE POTASSIUM WHEN A DOSE OF FUROSEMIDE IS GIVEN Hydrocodone/Acetaminophen 1 Each Tablet, 1 TAB PO Q6H PRN for PAIN-MODERATE (5- 7) Prescribed by: ROVERTO BARCENAS on 02/20/20 1143 Hydrocortisone 28.35 Gm Cream.appl, 1 APPLIC RC BID PRN for HEMMORRHOID DISCOMFORT, (Reported) Levothyroxine Sodium 125 Mcg Tablet, 125 MCG PO DAILY, (Reported) Lidocaine HCl 76.5 Gm Cream..g., 1 GM TP DAILY PRN, (Reported) APPLY TO LOWER BACK AND BILAT KNEES Loperamide HCl 2 Mg Capsule, 2 MG PO QID PRN for LOOSE STOOLS, (Reported) TAKE 1 CAP NEEDED AFTER EACH LOOSE STOOL TO UP FOUR TIMES DAILY Loratadine 10 Mg Tablet, 10 MG PO DAILY PRN for ALLERGIES, (Reported) Mupirocin 22 Gm Oint...g., 1 APPLIC TOP TID, (Reported) Nystatin 15 Gm Powder, 1 APPLIC TOP TID, (Reported) APPLY TO VAGINAL/ANAL TISSUE UNTIL HEALED Oxybutynin Chloride 5 Mg Tablet, 2.5 MG PO BID, (Reported) TAKES OF A 5MG TABLET TWICE DAILY Pantoprazole Sodium 40 Mg Tablet.dr, 40 MG PO DAILY, (Reported) Petrolatum,White 18 Ml Jelly.ml., 1 APPLIC TP BID, (Reported) APPLY TO THE FACE Polyethylene Glycol 3350 238 Gm Powder, 17 GM PO 1900, (Reported) Potassium Gluconate 99 Mg Tablet, 99 MG PO DAILY PRN for WHEN LASIX IS GIVEN, (Reported) GIVE POTASSIUM WHEN A DOSE OF FUROSEMIDE IS GIVEN Quinapril HCl 20 Mg Tablet, 20 MG PO BID, (Reported) Rivaroxaban 10 Mg Tablet, 10 MG PO DAILY, (Reported) TAKES DAILY AT 1700 Patient Home Medication List Home Medication List Reviewed: Yes Review of Systems Review of Systems Constitutional: see HPI, other (Patient denies complaints) Past Fborqxq-Drtaoe-Wxlosa Hx Patient Social History Recent Hopitalizations: Yes ([facility] ) Seasonal Allergies Seasonal Allergies: No Past Medical History Surgeries: Yes Appendectomy, Gallbladder, Hysterectomy Respiratory: No Cardiac: Yes Atrial Fibrillation, High Cholesterol, Hypertension 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 0.6oz. 81.629739ax; 403.00 BMI Method: General Appearance: Chronically ill, Other (Elderly, no distress alert very talkative. She is on 3 L at 94%. She is not tachypneic.) Neck: Full Range of Motion, Normal Inspection Respiratory: No Accessory Muscle Use, No Respiratory Distress, Crackles (Bibasilar) Gastrointestinal: Normal Bowel Sounds, Non Tender, Soft Extremity: Normal Capillary Refill, Other (Pitting edema 3+ up to the mid tibia bilaterally) Neurologic/Psychiatric: Alert Skin: Normal Color, Warm/Dry Progress/Results/Core Measures Suspected Sepsis SIRS Temperature: Pulse: Respiratory Rate: Laboratory Tests 04/09/21 13:35: White Blood Count 10.6 Blood Pressure / Mean: Laboratory Tests 04/09/21 13:35: Creatinine 1.34H, Platelet Count 287 Results/Orders Lab Results Laboratory Tests Test 04/09/21 13:35 Range/Units White Blood Count 10.6 4.3-11.0 10^3/uL Red Blood Count 3.12 L 3.80-5.11 10^6/uL Hemoglobin 7.1 L 11.5-16.0 g/dL Hematocrit 25 L 35-52 % Mean Corpuscular Volume 81 80-99 fL Mean Corpuscular Hemoglobin 23 L 25-34 pg Mean Corpuscular Hemoglobin Concent 28 L 32-36 g/dL Red Cell Distribution Width 19.2 H 10.0-14.5 % Platelet Count 287 130-400 10^3/uL Mean Platelet Volume 9.0 9.0-12.2 fL Immature Granulocyte % (Auto) 1 % Neutrophils (%) (Auto) 76 H 42-75 % Lymphocytes (%) (Auto) 10 L 12-44 % Monocytes (%) (Auto) 11 0-12 % Eosinophils (%) (Auto) 1 0-10 % Basophils (%) (Auto) 0 0-10 % Neutrophils # (Auto) 8.1 H 1.8-7.8 10^3/uL Lymphocytes # (Auto) 1.1 1.0-4.0 10^3/uL Monocytes # (Auto) 1.2 H 0.0-1.0 10^3/uL Eosinophils # (Auto) 0.1 0.0-0.3 10^3/uL Basophils # (Auto) 0.0 0.0-0.1 10^3/uL Immature Granulocyte # (Auto) 0.1 0.0-0.1 10^3/uL Sodium Level 137 135-145 MMOL/L Potassium Level 5.8 H 3.6-5.0 MMOL/L Chloride Level 103 98-107 MMOL/L Carbon Dioxide Level 26 21-32 MMOL/L Anion Gap 8 5-14 MMOL/L Blood Urea Nitrogen 40 H 7-18 MG/DL Creatinine 1.34 H 0.60-1.30 MG/DL Estimat Glomerular Filtration Rate 38 BUN/Creatinine Ratio 30 Glucose Level 86 70-105 MG/DL Calcium Level 9.4 8.5-10.1 MG/DL Magnesium Level 2.4 1.6-2.4 MG/DL Troponin I < 0.028 <0.028 NG/ML B-Type Natriuretic Peptide 345.0 H <100.0 PG/ML My Orders Orders - JANINE BOWERS PIZZA COOK Cbc With Automated Diff (04/09/21 13:34) BNP (04/09/21 13:34) Basic Metabolic Panel (04/09/21 13:34) Troponin I (04/09/21 13:34) Magnesium (04/09/21 13:34) Chest 1 View, Ap/Pa Only (04/09/21 13:34) Ed Iv/Invasive Line Start (04/09/21 13:34) Furosemide Injection (Lasix Injection) (04/09/21 14:15) Procalcitonin (Pct) (04/09/21 14:21) Bipap (Bilevel) Set Up (04/09/21 14:39) Morphine Injection (Morphine Injection (04/09/21 14:39) Palliative Care Consult (04/09/21 14:46) Vital Signs/I&O 04/09/21 13:30 Temp 36.1 Pulse 82 Resp 17 B/P (MAP) 131/112 (118) Pulse Ox 95 O2 Delivery OxyMask O2 Flow Rate 4.00 Capillary Refill : Diagnostic Imaging Diagonstic Imaging: Xray Plain Films/CT/US/NM/MRI: chest Comments NAME: HAILEETATE REC#: [id number] PT STATUS: REG ER : 1935 PHYSICIAN: JANINE BOWERS PIZZA COOK ADMIT DATE: 04/09/21/ER Draft Date of Exam:04/09/21 CHEST 1 VIEW, AP/PA ONLY INDICATION: Shortness of air COMPARISON: 06/02/2020 TECHNIQUE: Single radiograph of the chest dated 04/09/2021. FINDINGS: The cardiac silhouette is significantly enlarged, appearing more prominent than the prior examination. Central pulmonary vascular congestion is present. Diffusely increased bilateral interstitial and airspace opacities are present with associated moderate left and small right pleural effusion. No pneumothorax. Scattered osseous degenerative changes without acute osseous abnormality. IMPRESSION: Extensive bilateral pulmonary opacities with moderate left and small right pleural effusion. Findings are favored to relate to congestive heart failure and interstitial edema given increasing cardiomegaly and pulmonary vascular congestion. Recommend radiographic followup. Dictated on workstation # [id number] Dict: 04/09/21 1354 Trans: 04/09/21 1358 CVB [id number] Interpreted by: KALA LANDA MD Electronically signed by: Departure Communication (Admissions) 1419-son is here, does not feel like she is getting the care that she needs at the senior care. he states that she has been swelling up for a month and he is not sure why they have been waiting so long to intervene. Patient is on hospice for Alzheimer's. He would like to see her admitted to the hospital to get some of the fluid off because the recent increase in Lasix from 20 mg daily to 40 mg twice a day does not seem to be helping. Discussed with him we could put her in the hospital and get some extra fluid off and help with her shortness of breat, however this is a temporary fix and nothing more and will not change the long- term course of her disease given her advanced age and comorbidities. 1443-discussed with Dr. Wang, agrees that going back to the senior care on oxygen with a higher dose of Lasix would be a better option. But agrees to admit. I again discussed with the son that there is not much to be accomplished by admission. He states that she has an appointment with cardiology on the eighth to help evaluate her congestive heart failure. Discussed with him the futility of this and the need to focus on comfort rather than trying to cure her heart failure. I again recommended to him discharge back to the senior care with catheter, higher dose Lasix, supplemental oxygen. He still wants to see her admitted to the hospital at least overnight to see if IV Lasix improves her symptoms because to him she appears to be struggling to breathe. I will consult palliative care to discuss with the son his goals of care for his mother. He states he does not feel like the patient was getting adequate care at the senior care. I asked him if he was considering getting her placed in a different senior care and he states "no not really". He states he has 3 brothers with whom he shares power of commercial real estate attorney and they will be by later to see the patient. Impression Primary Impression: Congestive heart failure Disposition: ADMITTED INPATIENT Condition: Stable Admissions Decision to Admit Reason: Admit from ER (General) Decision to Admit/Date: Apr 09, 2021 Time/Decision to Admit Time: 14:20 Departure-Patient Inst. Referrals: JUDY BELLA MD (PCP) Primary Care Physician NO,LOCAL PHYSICIAN (Family) Primary Care Physician JANINE BOWERS APRN Apr 09, 2021 13:39
[2021-04-09 13:52] LABS: BASOPHILS % (AUTO) 0 % (0-10); EOSINOPHILS # (AUTO) 0.1 10^3/uL (0.0-0.3); EOSINOPHILS % (AUTO) 1 % (0-10); HEMATOCRIT 25 % (35-52); HEMOGLOBIN 7.1 g/dL (11.5-16.0); LYMPHOCYTES # (AUTO) 1.1 10^3/uL (1.0-4.0); LYMPHOCYTES % (AUTO) 10 % (12-44); MEAN CORPUSCULAR HEMOGLOBIN 23 pg (25-34); MEAN CORPUSCULAR HGB CONC 28 g/dL (32-36); MEAN CORPUSCULAR VOLUME 81 fL (80-99); MONOCYTES # (AUTO) 1.2 10^3/uL (0.0-1.0); MONOCYTES % (AUTO) 11 % (0-12); NEUTROPHILS # (AUTO) 8.1 10^3/uL (1.8-7.8); NEUTROPHILS % (AUTO) 76 % (42-75); PLATELET COUNT 287 10^3/uL (130-400); WHITE BLOOD COUNT 10.6 10^3/uL (4.3-11.0)
--- NOTE | 2021-04-09 13:58 | Diagnostic Imaging Report ---
INDICATION: Shortness of air COMPARISON: 06/02/2020 TECHNIQUE: Single radiograph of the chest dated 04/09/2021. FINDINGS: The cardiac silhouette is significantly enlarged, appearing more prominent than the prior examination. Central pulmonary vascular congestion is present. Diffusely increased bilateral interstitial and airspace opacities are present with associated moderate left and small right pleural effusion. No pneumothorax. Scattered osseous degenerative changes without acute osseous abnormality. IMPRESSION: Extensive bilateral pulmonary opacities with moderate left and small right pleural effusion. Findings are favored to relate to congestive heart failure and interstitial edema given increasing cardiomegaly and pulmonary vascular congestion. Recommend radiographic followup. Dictated by: Dictated on workstation # [id number]
[2021-04-09 14:09] LABS: BUN/CREATININE RATIO 30; CALCIUM 9.4 MG/DL (8.5-10.1); CARBON DIOXIDE 26 MMOL/L (21-32); CHLORIDE 103 MMOL/L (98-107); CREATININE SERUM 1.34 MG/DL (0.60-1.30); GFR ESTIMATED 38; GLUCOSE 86 MG/DL (70-105); MAGNESIUM 2.4 MG/DL (1.6-2.4); POTASSIUM 5.8 MMOL/L (3.6-5.0); SODIUM 137 MMOL/L (135-145)
[2021-04-09] MEDS ORDERED: FUROSEMIDE 40 MG/4 ML INJ (LASIX) IVP ONE (14:15)
[2021-04-09] MEDS ORDERED: morphine INJ 10 MG/ML 1ML (SYR OR VIAL) IVP STA (14:39)
[2021-04-09 16:21] VITALS: BP 147/65
[2021-04-09] MEDS ORDERED: MORP100S3 PO (16:29)
[2021-04-09] MEDS ORDERED: POTA20TA15 PO (16:29)
[2021-04-09] MEDS ORDERED: HYOS-20 PO (16:29)
[2021-04-09] MEDS ORDERED: ONDA-105 PO (16:29)
[2021-04-09] MEDS ORDERED: LEVO112T55 PO (16:29)
[2021-04-09] MEDS ORDERED: LORA-405 PO (16:29)
[2021-04-09] MEDS ORDERED: MAGN400O7 PO (16:29)
[2021-04-09] MEDS ORDERED: CATHETER FLUSH 10 ML SYR IV PRN (17:00)
[2021-04-09 19:39] VITALS: BP 118/64
[2021-04-09] MEDS ORDERED: RT-ALBUTEROL SULF 2.5 MG/3 ML PRE-MIX VIAL INH SCH (21:00)
[2021-04-09] MEDS ORDERED: RT-ALBUTEROL SULF 2.5 MG/3 ML PRE-MIX VIAL INH PRN (21:30)
[2021-04-09] MEDS: CATHETER FLUSH 10 ML SYR IV SCH (22:02)
[2021-04-09 23:28] VITALS: BP 145/65
[2021-04-10 03:26] VITALS: BP 122/48
[2021-04-10] MEDS ORDERED: FUROSEMIDE 40 MG/4 ML INJ (LASIX) ONE (05:31)
[2021-04-10] MEDS: FUROSEMIDE 40 MG/4 ML INJ (LASIX) IV SCH (05:33)
[2021-04-10] MEDS: CATHETER FLUSH 10 ML SYR IV SCH ×3 (05:33→20:18)
[2021-04-10 05:40] LABS: BASOPHILS % (AUTO) 0 % (0-10); EOSINOPHILS # (AUTO) 0.1 10^3/uL (0.0-0.3); EOSINOPHILS % (AUTO) 1 % (0-10); HEMATOCRIT 24 % (35-52); LYMPHOCYTES # (AUTO) 0.8 10^3/uL (1.0-4.0); LYMPHOCYTES % (AUTO) 8 % (12-44); MEAN CORPUSCULAR HEMOGLOBIN 23 pg (25-34); MEAN CORPUSCULAR HGB CONC 28 g/dL (32-36); MEAN CORPUSCULAR VOLUME 81 fL (80-99); MONOCYTES % (AUTO) 9 % (0-12); NEUTROPHILS # (AUTO) 8.6 10^3/uL (1.8-7.8); NEUTROPHILS % (AUTO) 80 % (42-75); PLATELET COUNT 308 10^3/uL (130-400); WHITE BLOOD COUNT 10.7 10^3/uL (4.3-11.0)
[2021-04-10 05:50] LABS: HEMOGLOBIN 6.9 g/dL (11.5-16.0)
[2021-04-10 06:04] LABS: POTASSIUM 5.5 MMOL/L (3.6-5.0)
[2021-04-10 06:05] LABS: CALCIUM 9.2 MG/DL (8.5-10.1)
[2021-04-10 06:09] LABS: CREATININE SERUM 1.19 MG/DL (0.60-1.30); EOSINOPHILS % (MANUAL) 3 %; HYPOCHROMASIA MODERATE; LYMPHOCYTES % (MANUAL) 12 %; MICROCYTOSIS MODERATE; MONOCYTES % (MANUAL) 4 %; NEUTROPHILS % (MANUAL) 81 %
[2021-04-10 07:10] VITALS: BP 136/61
[2021-04-10] MEDS ORDERED: ACETAMINOPHEN 500 MG TAB (TYLENOL) PO PRN (10:45)
--- NOTE | 2021-04-10 11:13 | History & Physical ---
History of Present Illness History of Present Illness Reason for visit/HPI This is a 85 year old female who is on hospice for End Stage Alzheimer's and resides at a local senior living. She was brought to the emergency room due to hypoxia and edema. She was found to be in congestive heart failure and her oxygen saturation was in the 80s when EMS arrived. She was on 3L of oxygen via [place] when she arrived in the ER and her oxygen saturation was at 94%. It was felt that she could be sent back to the [facility] on oxygen and higher lasix doses but the son wanted her admitted for treatment. Date of Admission Apr 09, 2021 at 14:26 Date Seen by a Provider: Apr 10, 2021 Time Seen by a Provider: 11:12 I consulted on this patient on 04/10/21 11:08 Attending Physician Gabriella Wang DO Admitting Physician Char Dennis MD Consult Allergies and Home Medications Allergies Coded Allergies: Penicillins (Verified Allergy, Unknown, 07/25/19) sulfamethoxazole (Verified Allergy, Unknown, 07/25/19) trimethoprim (Verified Allergy, Unknown, 07/25/19) Home Medications Acetaminophen 500 Mg Tablet, 500 MG PO Q6H PRN for PAIN-MILD (1-4), (Reported) Last Action: Continued Acetaminophen 500 Mg Tablet, 500 MG PO HS PRN for PAIN-MILD (1-4), (Reported) Last Action: Reviewed Amlodipine Besylate 5 Mg Tablet, 5 MG PO 1600, (Reported) HOLD FOR SBP<115 Last Action: Reviewed Docusate Sodium 100 Mg Capsule, 100 MG PO DAILY PRN for CONSTIPATION-1ST LINE, (Reported) GIVE PER RESIDENT REQUEST Last Action: Reviewed Flecainide Acetate 100 Mg Tablet, 100 MG PO BID, (Reported) Last Action: Continued Furosemide 20 Mg Tablet, 20 MG PO DAILY, (Reported) Last Action: Reviewed Hydrocortisone 28.35 Gm Cream.appl, 1 APPLIC RC BID PRN for HEMMORRHOID DISCOMFORT, (Reported) Last Action: Reviewed Hyoscyamine Sulfate 0.125 Mg Tablet, 0.125 MG PO Q2H PRN for EXCESSIVE SECRETIONS, (Reported) Last Action: Reviewed Levothyroxine Sodium 112 Mcg Tablet, 112 MCG PO DAILY, (Reported) Last Action: Continued Lidocaine HCl 76.5 Gm Cream..g., 1 APPLIC TP Q8H PRN for PAIN-BREAKTHROUGH, (Reported) APPLY TO LOWER BACK AND BILAT KNEES Last Action: Reviewed Loperamide HCl 2 Mg Capsule, 2 MG PO QID PRN for LOOSE STOOLS, (Reported) TAKE 1 CAP NEEDED AFTER EACH LOOSE STOOL TO UP FOUR TIMES DAILY Last Action: Reviewed Loratadine 10 Mg Tablet, 10 MG PO DAILY PRN for ALLERGIES, (Reported) Last Action: Reviewed Lorazepam 1 Mg Tablet, 1 MG PO Q4H PRN for ANXIETY/AIR HUNGER, (Reported) Last Action: Reviewed Magnesium Hydroxide 400 Mg/5 Ml Oral.susp, 30 ML PO DAILY PRN for CONSTIPATION- 7TH LINE, (Reported) Last Action: Reviewed Morphine Sulfate 100 Mg/5 Ml Solution, 0.5 ML PO Q15M PRN for AIR HUNGER/PAIN, (Reported) Last Action: Reviewed Ondansetron HCl 4 Mg Tablet, 4 MG PO TID PRN for NAUSEA/VOMITING-1ST LINE, (Reported) Last Action: Reviewed Polyethylene Glycol 3350 238 Gm Powder, 17 GM PO 1900, (Reported) Last Action: Reviewed Potassium Chloride 20 Meq Tab.er.prt, 20 MEQ PO DAILY, (Reported) Last Action: Reviewed Quinapril HCl 20 Mg Tablet, 20 MG PO BID, (Reported) HOLD IF SBP<120 Last Action: Reviewed Rivaroxaban 10 Mg Tablet, 10 MG PO DAILY, (Reported) TAKES DAILY AT 1700 Last Action: Continued Patient Home Medication List Home Medication List Reviewed: Yes Past Ovozjml-Akriqx-Pjkmhd Hx Past Med/Social Hx: Reviewed Nursing Past Med/Soc Hx Patient Social History Alcohol Use: Denies Use Recreational Drug Use: No Smoking Status: Never a Smoker Recent Foreign Travel: No Contact w/other who traveled: No Recent Hopitalizations: Yes (HANK DERAS DR) Recent Infectious Disease Expo: No Seasonal Allergies Seasonal Allergies: No Past Medical History Surgeries: Appendectomy, Gallbladder, Hysterectomy Cardiac: Atrial Fibrillation, High Cholesterol, Hypertension Hysterectomy Genitourinary: UTI-Chronic Gastrointestinal: Chronic Constipation Endocrine: Hypothyroidsim HEENT: Macular Degeneration Loss of Vision: Bilateral Hearing Impairment: Denies Psychosocial: Anxiety Family History No Pertinent Family Hx Review of Systems Constitutional: weakness EENTM: No see HPI, No no symptoms reported, No ear discharge, No hearing loss, No ear pain, No blurred vision, No double vision, No eye pain, No tearing, No vision loss, No dental problems, No hoarseness, No mouth pain, No mouth swelling, No epistaxis, No nose congestion, No nose pain, No throat pain, No t hroat swelling, No other Respiratory: short of breath Cardiovascular: edema Gastrointestinal: No RUQ, No LUQ, No RLQ, No LLQ, No no symptoms reported, No see HPI, No abdominal pain, No constipation, No diarrhea, No dysphagia, No hematemesis, No heartburn, No jaundice, No loss of appetite, No melena, No nausea, No vomiting, No other Genitourinary: No no symptoms reported, No see HPI, No decreased output, No discharge, No dysuria, No frequency, No hematuria, No hesitancy, No incontinence, No nocturia, No pain, No other Musculoskeletal: muscle weakness Skin: No no symptoms reported, No see HPI, No change in color, No change in hair/nails, No dryness, No hx of skin cancer, No lesions, No lumps, No pruritus, No rash, No other Psychiatric/Neurological: Weakness, Other (confusion) Physical Exam Vital Signs Vital Signs - First Documented 04/09/21 13:30 Temp 36.1 Pulse 82 Resp 17 B/P (MAP) 131/112 (118) Pulse Ox 95 O2 Delivery OxyMask O2 Flow Rate 4.00 Capillary Refill : Less Than 3 Seconds Height, Weight, BMI Height: '" Weight: 179lbs. 0.6oz. 81.925248ci; 36.68 BMI Method: General Appearance: No Apparent Distress HEENT: Normal ENT Inspection Neck: Supple Respiratory: Crackles, Decreased Breath Sounds Cardiovascular: Regular Rate, Rhythm, Systolic Murmur Gastrointestinal: Normal Bowel Sounds, Non Tender, Soft Rectal: Deferred Back: No CVA Tenderness Extremity: Non Tender, No Calf Tenderness, Pedal Edema (2plus) Neurologic/Psychiatric: Alert, Disoriented Skin: Warm/Dry Comments Laboratory Tests 04/09/21 13:35: White Blood Count 10.6, Red Blood Count 3.12L, Hemoglobin 7.1L, Hematocrit 25L, Mean Corpuscular Volume 81, Mean Corpuscular Hemoglobin 23L, Mean Corpuscular H emoglobin Concent 28L, Red Cell Distribution Width 19.2H, Platelet Count 287, Mean Platelet Volume 9.0, Immature Granulocyte % (Auto) 1, Neutrophils (%) (Auto) 76H, Lymphocytes (%) (Auto) 10L, Monocytes (%) (Auto) 11, Eosinophils (%) (Auto) 1, Basophils (%) (Auto) 0, Neutrophils # (Auto) 8.1H, Lymphocytes # (Auto) 1.1, Monocytes # (Auto) 1.2H, Eosinophils # (Auto) 0.1, Basophils # (Auto) 0.0, Immature Granulocyte # (Auto) 0.1, Sodium Level 137, Potassium Level 5.8H, Chloride Level 103, Carbon Dioxide Level 26, Anion Gap 8, Blood Urea Nitrogen 40H, Creatinine 1.34H, Estimat Glomerular Filtration Rate 38, BUN/Creatinine Ratio 30, Glucose Level 86, Calcium Level 9.4, Magnesium Level 2.4, Troponin I < 0.028, B-Type Natriuretic Peptide 345.0H, Procalcitonin 0.37H 04/10/21 05:07: White Blood Count 10.7, Red Blood Count 3.00L, Hemoglobin 6.9*L, Hematocrit 24L, Mean Corpuscular Volume 81, Mean Corpuscular Hemoglobin 23L, Mean Corpuscular Hemoglobin Concent 28L, Red Cell Distribution Width 19.1H, Platelet Count 308, Mean Platelet Volume 9.0, Immature Granulocyte % (Auto) 2, Neutrophils (%) (Auto) 80H, Lymphocytes (%) (Auto) 8L, Monocytes (%) (Auto) 9, Eosinophils (%) (Auto) 1, Basophils (%) (Auto) 0, Neutrophils # (Auto) 8.6H, Lymphocytes # (Auto) 0.8L, Monocytes # (Auto) 1.0, Eosinophils # (Auto) 0.1, Basophils # (Auto) 0.0, Immature Granulocyte # (Auto) 0.2H, Sodium Level 139, Potassium Level 5.5H, Chloride Level 103, Carbon Dioxide Level 26, Anion Gap 10, Blood Urea Nitrogen 41H, Creatinine 1.19, Estimat Glomerular Filtration Rate 43, B UN/Creatinine Ratio 34, Glucose Level 87, Calcium Level 9.2, Neutrophils % (Manual) 81, Lymphocytes % (Manual) 12, Monocytes % (Manual) 4, Eosinophils % (Manual) 3, Hypochromasia MODERATE, Microcytosis MODERATE, Iron Level [Pending], Total Iron Binding Capacity [Pending], Unsaturated Iron Binding Capacity [Pending], Transferrin % Saturation [Pending], Ferritin [Pending] Assessment/Plan Assessment and Plan 1. Acute on Chronic Systolic Congestive Heart Failure--admit for IV lasix 2. Acute Respiratory Failure due to #1--improved with oxygen--is on mask due to being a mouth breather 3. Atrial Fibrillation--resume xarelto and fleicanide 4. Chronic Anemia--will check iron levels and then possible iron infusion 5. End Stage Dementia--on hospice Admission Diagnosis Admission Status: Inpatient Order (span 2 midnights) Reason for Inpatient Admission: Will be in 2 midnights for IV diuresis GABRIELLA WANG DO Apr 10, 2021 11:13
[2021-04-10 11:50] VITALS: BP 148/54
[2021-04-10 16:01] VITALS: BP 152/55
[2021-04-10 20:27] VITALS: BP_SYST 130; BP_SYST 152; BP_DIAS 55; BP_DIAS 63
[2021-04-10] MEDS ORDERED: FLECAINIDE 100 MG (TAMBOCOR) TAB PO SCH (21:00)
[2021-04-10] MEDS: LORazepam INJ 2 MG/ML (ATIVAN) VIAL IVP PRN (21:26)
[2021-04-10 23:24] VITALS: BP 138/66
[2021-04-11] MEDS ORDERED: FUROSEMIDE 40 MG/4 ML INJ (LASIX) IVP ONE (00:30)
[2021-04-11] MEDS ORDERED: FUROSEMIDE 40 MG/4 ML INJ (LASIX) ONE (00:36)
[2021-04-11 00:42] VITALS: BP 111/66
[2021-04-11 03:23] VITALS: BP 119/71
[2021-04-11] MEDS: LEVOTHYROXINE 112 MCG (LEVOTHROID) TAB PO SCH (06:23)
[2021-04-11] MEDS: CATHETER FLUSH 10 ML SYR IV SCH ×3 (06:23→22:20)
[2021-04-11] MEDS: FUROSEMIDE 40 MG/4 ML INJ (LASIX) IV SCH (06:23)
--- NOTE | 2021-04-11 06:58 | Diagnostic Imaging Report ---
EXAMINATION: Portable erect AP chest at 1234 AM INDICATION: Increased O2 needs The appearance of the chest has worsened since the prior exam of 04/09/2021 as the density in both lungs has increased, particularly the left lung. These findings do indicate worsening pulmonary congestion, pneumonia/atelectasis and fluid. The heart is partially obscured but appears similar to the prior study. The mediastinum is not widened. The osseous structures are intact. IMPRESSION: The appearance of the chest has worsened since the prior study as there is greater involvement of both lungs by pulmonary congestion, pneumonia/atelectasis and pleural fluid. A follow-up study would be recommended for continued evaluation. Dictated by: Dictated on workstation # [id number]
[2021-04-11] MEDS ORDERED: SALIVA STIMULANT MOUTH SPRAY (BIOTENE) 1.5 OZ MM PRN (07:00)
[2021-04-11] MEDS ORDERED: ARTIFICAL TEARS 0.4 ML UNIT DOSE (REFRESH PLUS) OU PRN (07:00)
[2021-04-11] MEDS ORDERED: LORazepam INJ 2 MG/ML (ATIVAN) VIAL IVP PRN (07:00)
[2021-04-11] MEDS ORDERED: ONDANSETRON 4 MG/2 ML (SDV) Z0FRAN IVP PRN (07:00)
[2021-04-11] MEDS ORDERED: BISACODYL 10 MG SUPP (DULCOLAX) PR PRN (07:00)
[2021-04-11] MEDS ORDERED: RT-ALBUTEROL/IPRATROPIUM 3 ML (DUONEB) VIAL INH PRN (07:00)
[2021-04-11] MEDS ORDERED: ACETAMINOPHEN 650 MG SUPP (TYLENOL) PR PRN (07:00)
[2021-04-11] MEDS ORDERED: GLYCOPYRROLATE 0.2 MG/ML (ROBINUL) 2 ML VIAL IV PRN (07:00)
[2021-04-11] MEDS ORDERED: RIVAROXABAN 10 MG TABLET (XARELTO) PO SCH (09:00)
--- NOTE | 2021-04-11 09:13 | Progress Note ---
Subjective Date Seen by a Provider: Apr 11, 2021 Time Seen by a Provider: 09:09 Subjective/Events-last exam Fwup respiratory failure, decompensated CHF, end stage dementia, chronic anemia, A fib. Had drop in oxygen saturation overnight with concern for aspiration. Was put on vapotherm and then BIPAP but family has now decided on comfort care. Patient currently awake and talking with family at bedside--very comfortable at this time. Objective Exam Vital Signs Date Time Temp Pulse Resp B/P (MAP) Pulse Ox O2 Delivery O2 Flow Rate FiO2 04/11/21 07:48 High Flow N/C 2.00 04/11/21 06:42 70 34 100 40.00 04/11/21 03:23 36.0 63 16 119/71 (87) 100 NIV Bilevel 04/11/21 01:08 64 25 94 60.00 04/11/21 00:42 64 25 94 60.00 04/10/21 23:24 36.8 86 24 138/66 (90) 94 OxyMask 8.00 04/10/21 20:30 OxyMask 8.00 04/10/21 20:27 36.3 68 24 130/63 (85) 95 OxyMask 8.00 04/10/21 19:44 91 OxyMask 6.00 04/10/21 16:01 36.3 74 24 152/55 (87) 97 OxyMask 8.00 04/10/21 15:12 98 OxyMask 8.00 04/10/21 11:50 36.8 71 24 148/54 (85) 94 OxyMask 8.00 I & O 04/11/21 07:00 Intake Total 660 ml Output Total 2950 ml Balance -2290 ml Capillary Refill : Less Than 3 Seconds General Appearance: No Apparent Distress Respiratory: Lungs Clear, Decreased Breath Sounds Cardiovascular: Systolic Murmur, Irregularly Irregular Extremity: Non Tender, No Calf Tenderness, Pedal Edema Neurologic/Psychiatric: Alert, Disoriented Assessment/Plan Assessment/Plan Assess & Plan/Chief Complaint 1. Acute Respiratory Failure due to Acute on Chronic Systolic CHF and then possible aspiration pneumonia overnight--family has decided on comfort care as patient is on hospice for end stage alzheimer's disease Clinical Quality Measures Admission Status Admission Dx 1. Acute on Chronic Systolic Congestive Heart Failure--admit for IV lasix 2. Acute Respiratory Failure due to #1--improved with oxygen--is on mask due to being a mouth breather 3. Atrial Fibrillation--resume xarelto and fleicanide 4. Chronic Anemia--will check iron levels and then possible iron infusion 5. End Stage Dementia--on hospice TREVOR LIGHT DO Apr 11, 2021 09:13
[2021-04-11] MEDS ORDERED: HYDROcodone/APAP 5 MG/325 MG (LORTAB) TAB PO PRN (14:45)
[2021-04-11] MEDS: morphine INJ 4 MG/ML 1 ML (VIAL/SYRINGE) IV PRN (22:57)
[2021-04-12] MEDS: morphine INJ 4 MG/ML 1 ML (VIAL/SYRINGE) IV PRN (03:45)
[2021-04-12] MEDS: LEVOTHYROXINE 112 MCG (LEVOTHROID) TAB PO SCH (06:01)
[2021-04-12] MEDS: CATHETER FLUSH 10 ML SYR IV SCH ×3 (06:01→21:29)
[2021-04-12] MEDS ORDERED: LORazepam INJ 2 MG/ML (ATIVAN) VIAL IVP SCH (11:00)
[2021-04-12] MEDS: morphine INJ 4 MG/ML 1 ML (VIAL/SYRINGE) IV SCH ×4 (12:19→20:21)
[2021-04-12] MEDS: LORazepam INJ 2 MG/ML (ATIVAN) VIAL IVP PRN (14:35)
[2021-04-12] MEDS ORDERED: morphine INJ 4 MG/ML 1 ML (VIAL/SYRINGE) IVP PRN (16:00)
[2021-04-12] MEDS ORDERED: morphine INJ 4 MG/ML 1 ML (VIAL/SYRINGE) ONE (16:02)
--- NOTE | 2021-04-12 18:27 | Progress Note ---
Subjective Subjective Date Seen by Provider: Apr 12, 2021 Time Seen by Provider: 08:40 PT IS AN 85 Y/O FEMALE WHO WAS A NEW PATIENT TO MY CLINIC OF NOVEMBER 2019. SHE HAS DEMENTIA, AND FAILURE TO THRIVE AND HAS BEEN ON HOSPICE. HOWEVER THE PT STARTED TO HAVE SHORTNESS OF BREATH AND THE FAMILY REQUESTED PT BE TR ANSPORTED TO THE HOSPITAL FROM THE [facility]UST[facility] IN [place]. THE PATIENT WAS OBTUNDED THIS MORNING UPON MY EVALUATION AND COULD NOT ANSWER ANY QUESTIONS. HER FAMILY REPORTS THAT SHE WAS "TALKING TO US FOR ABOUT AN HOUR OR LONGER LAST NIGHT." WHEN I SPECIFICALLY ASKED ABOUT HER COHERENCE AND THE CONVERSATION, HER FAMILY ADMITS THAT THE MAJORITY OF THE CONVERSATION WAS NOT INTELLIGIBLE, AND THAT THE CONVERSATION WAS "DIRECTED AT US, BUT SHE WASN'T REALLY CONVERSING WITH US, AND SHE DIDN'T SEEM TO KNOW US." FAMILY REPORTS THAT THEY HAVE HAD EXPERIENCES WITH HOSPICE AND ONE OF THE [facility] REPORTS THAT "MY MOM WAS DRUGGED UP AT THE END AND I DON'T WANT THAT FOR HER (TATE)" Review of Systems General: Other (PT OBTUNDED, BUT ATE SOME SNACKS LAST NIGHT PER FAMILY REPORT) Neurological: Confusion (CHRONIC) Objective Exam Vital Signs Vital Signs - First Documented 04/09/21 13:30 Temp 36.1 Pulse 82 Resp 17 B/P (MAP) 131/112 (118) Pulse Ox 95 O2 Delivery OxyMask O2 Flow Rate 4.00 Capillary Refill : Less Than 3 Seconds General Appearance: Mild Distress (DUE TO USE OF RESPIRATORY MUSCLES TO B REATHE) Neck: Supple Respiratory: Crackles (IN BASES), Decreased Breath Sounds Cardiovascular: Systolic Murmur, Irregularly Irregular Gastrointestinal: Normal Bowel Sounds, Non Tender, Soft Rectal: Deferred Extremity: Non Tender, No Calf Tenderness, Pedal Edema, Slow Capillary Refill, Other (WRINKLKING OF SKIN OF FEET/LOWER LEGS, SLIGHT MOTTLING OF FEET BY GREAT TOES BILATERALLY) Neurologic/Psychiatric: Alert, Disoriented Skin: Cyanosis Assessment/Plan Assessment/Plan Admission Dx ACUTE ON CHRONIC CONGESTIVE HEART FAILURE- SYSTOLIC ACUTE RESPIRATORY FAILURE SUSPECT ASPIRATION PNEUMONIA CHRONIC ATRIAL FIBRILLATION ACUTE ON CHRONIC ANEMIA END STAGE MIXED DEMENTIA Assessment and Plan ACUTE ON CHRONIC CONGESTIVE HEART FAILURE- SYSTOLIC ACUTE RESPIRATORY FAILURE SUSPECT ASPIRATION PNEUMONIA CHRONIC ATRIAL FIBRILLATION ACUTE ON CHRONIC ANEMIA END STAGE MIXED DEMENTIA PT WAS ADMITTED FOR TREATMENT OF THE CHF, HOWEVER WITH HER SUSPECTED ASPIRATION, FEVER, WORSENING RESPIRATORY STATUS, THE FAMILY DECIDED TO STOP AGGRESSIVE TREATMENT AND TO ALLOW PT TO PASS NATURALLY. I EXPLAINED TO THE FAMILY THAT THE GOAL FOR TATE IS COMFORT, NOT LENGTHENING OF HER LIFE, BUT FOR COMFORT. I EXPLAINED THAT THEY LIKELY WOULD NOT HAVE A LONG TIME WITH HER AND THAT FOR COMFORT SOMETIMES WE HAVE TO SACRIFICE VERBALIZATIONS, AND INTERACTIONS. NOTE WAS MADE OF HER EXCESSIVE USE OF ABDOMINAL/RESPIRATORY MUSCLES TO BREATH AN D THE APPEARANCE OF DISCOMFORT AND THEY AGREED TO A CHANGE IN HER MEDICATION REGIMEN FOR IMPROVED COMFORT UNDERSTANDING THAT SHE WOULD LIKELY BE MORE SEDATED. I HAVE DISCUSSED THE DIAGNOSIS AND THE GOALS OF CARE WITH THE PT'S AVAILABLE FAMILY - THEY ARE IN AGREEMENT WITH MY PLAN WHICH INCLUDES: - INCREASE IN SCHEDULED COMFORT MEDICATIONS. - MORPHINE 1MG IV Q 4 HOURS SCHEDULED - ATIVAN 0.5MG IV Q 6 HOURS SCHEDULED (PLAN CHANGED DUE TO PT RESPONSE TO ATIVAN - ATIVAN HAS BEEN DISCONTINUED AND MORPHINE DOSE INCREASED TO 2MG IV Q 4 HOURS SCHEDULED) - STOP OXYGEN EXTERNAL OXYGEN SUPPLEMENTATION WILL NOT OFFER EXTRA COMFORT AND WILL PROLONG THE SUFFERING SHE EXPERIENCES AND PROLONG THE DYING PROCESS. THE FAMILY REQUESTED TO WAIT ON THE OXYGEN REMOVAL UNTIL ONE OF HER GRANDDAUGHTERS IS ABLE TO GET TO THE HOSPITAL. - FOR NOW WE WILL NOT PLAN ON DISCHARGE BACK TO THE CUSTODIAL, HOWEVER i INFORMED THE FAMILY THAT DEPENDING ON HOW SHE RESPONDS WE WILL HAVE TO RE- EVALUATE THAT PLAN. I EXPLAINED WHAT TO EXPECT FROM A DECLINE STANDPOINT AND FAMILY VERBALIZED UNDERSTANDING. JUDY BELLA MD Apr 12, 2021 18:27
[2021-04-12] MEDS ORDERED: SCOPOLAMINE 1.5 MG (TRANSDERM-SCOP) PATCH TD ONE ×2 (18:45→22:15)
[2021-04-13] MEDS: morphine INJ 4 MG/ML 1 ML (VIAL/SYRINGE) IV SCH (00:18)
[2021-04-15] MEDS ORDERED: PATCH REMOVAL TP NR (22:15)
== END 2021-04-13 03:57 | disposition expired | DRG 291 ==
LOC: EDUNIT# 13:30 → ER 13:34 → 4TH 14:26
PROVIDERS: ADMIT Family Medicine; ATTEND Family Medicine
DX: I11.0 Hypertensive heart disease with heart failure (principal); J96.01 Acute respiratory failure with hypoxia; J69.0 Pneumonitis due to inhalation of food and vomit; I48.20 Chronic atrial fibrillation, unspecified; I50.23 Acute on chronic systolic (congestive) heart failure; G30.9 Alzheimer's disease, unspecified; F02.80 Dementia in other diseases classified elsewhere, unspecified severity, without behavioral disturbance, psychotic disturbance, mood disturbance, and anxiety; Z66 Do not resuscitate; Z51.5 Encounter for palliative care; D64.9 Anemia, unspecified; E78.00 Pure hypercholesterolemia, unspecified; E03.9 Hypothyroidism, unspecified; F41.9 Anxiety disorder, unspecified; H35.30 Unspecified macular degeneration; Z88.0 Allergy status to penicillin; Z88.2 Allergy status to sulfonamides
CPT/HCPCS: 36415; 71045; 80048; 82728; 83540; 83550; 83735; 83880; 84145; 84484; 85007; 85025; 85027; 94640; 94660; 94760